=== PATIENT | male | born 1965 | race Caucasian/White ===

== ENCOUNTER 2018-04-16 11:30 | Inpatient (IN) ==
[2018-04-16] MEDS ORDERED: *HR* FentaNYL (PF) 100 MCG/2 ML VIAL IVP ONE ×2 (12:24→14:16)
[2018-04-16] MEDS ORDERED: Ondansetron 4 MG/2 ML VIAL IVP ONE (12:24)
[2018-04-16] MEDS ORDERED: Isovue-370 500 ML INFUS..BTL IV ONE (12:24)
[2018-04-16] MEDS ORDERED: 0.9 % Sodium Chloride 1,000 ML IVC ONE (12:24)
--- NOTE | 2018-04-16 12:29 | Emergency Department Note ---
Disposition Clinical Impression: Ulcerative rectosigmoiditis with abscess Disposition: Admitted As Inpatient Referrals: NONE,PCP [Primary Care Provider] - Forms: ED Satisfaction Letter GI Bleed HPI - General Chief complaint: ED GI Bleed Stated complaint: Rectal problems Time Seen by Provider: 04/16/18 11:53 Source: patient Limitations: no limitations Nursing Notes Reviewed: Yes Vital Signs Reviewed: Yes - History of Present Illness HPI Narrative: Luis Fernando is a 52 year old homeless male with a past medical history significant for 1 year of rectal pain and bleeding who now presents with worsening rectal pain, bleeding and new onset of abdominal pain. History comes primarily from the patient. Luis Fernando states that he was seen for his rectal pain and bleeding about one month ago at this facility. At the time he was CT scanned and found to have an intramural rectal abscess and discharged on pain medication, flagyl and oral steroids with instructions to follow up with outpatient GI for further evaluation. Due to socioeconomic constraints Luis Fernando was unable to obtain this follow up, and he states the medications did not improve or resolve his initial symptoms. He states this morning his pain became significantly worse and his rectal pain started to radiate to the lower abdominal region. He states that in the last month his bowel movements have been "mostly blood" and very painful. He denies F/C/NS, V/D, CP/SOB, AMS. He does admit to some nausea with his symptoms. He denies any other medical history or history of IVDU. Pt Subjective Complaint: blood on toilet paper, blood streaked stool, gross hematochezia Consistency: constant, Worsening Severity: severe Improves with: nothing Worsens with: bowel movement Context: history of GI bleed Associated symptoms: Reports: abdominal pain, nausea, malaise. Denies: fever, chills - Related Data Previous Rx's Medication Instructions Recorded Amoxicillin/Clavulanate [Augmentin] 875 mg PO BID #20 tablet 03/19/18 predniSONE [Prednisone] 50 mg PO DAILY #6 tablet 03/19/18 Allergies Allergy/AdvReac Type Severity Reaction Status Date / Time No Known Allergies Allergy Verified 01/31/17 13:09 Constitutional: Reports: weakness. Denies: fever, chills Cardiovascular: Denies: chest pain, palpitations, dyspnea on exertion Respiratory: Denies: cough, dyspnea, wheezes, sputum production Gastrointestinal: Reports: abdominal pain, nausea. Denies: vomiting, diarrhea, constipation Genitourinary: Denies: urgency, dysuria Musculoskeletal: Denies: back pain, neck pain Integumentary: Denies: rash, lesions Neurological: Denies: headache, weakness Psychiatric: Denies: anxiety, depression Past Medical History - Past Medical History Medical history: Reports: no medical history Psychiatric history: Reports: no psych history - Social History Smoking Status: Current every day smoker Smokeless Tobacco Status: No Alcohol use: Reports: none Drug use: Reports: none Physical Exam - General General appearance: alert, in no apparent distress - Head Head exam: atraumatic, normocephalic - Eye Eye exam: Present: normal appearance, PERRL, EOMI - ENT ENT exam: normal exam, normal oropharynx, mucous membranes moist - Neck Neck exam: Present: normal inspection, full ROM, trachea midline - Chest Chest inspection: Present: normal inspection, symmetric chest wall rise - Respiratory Respiratory exam: Present: normal lung sounds bilaterally. Absent: respiratory distress, accessory muscle use - Cardiovascular Cardiovascular exam: Present: regular rate, normal rhythm, normal heart sounds - Abdominal Exam Abdominal exam: Present: soft, tenderness, guarding. Absent: distention, rebound, rigidity Abdominal tenderness: Present: suprapubic - Rectal Exam Rectal exam: Present: normal inspection, other (increased rectal tone, stool is not grossly bloody. Hemoccult sent. ) - Back Exam Back exam: Present: normal inspection - Neurological Exam Neurological exam: Present: alert, oriented X3, CN II-XII intact - Psychiatric Psychiatric exam: Present: normal affect, normal mood - Skin Skin exam: Present: warm, dry, intact, normal color Course Course Narrative: Subjective interval change since last evaluation. Will reassess with repeat CT. Will treat symptoms with IVF, Zofran, Fentanyl. - Reevaluation(s) Reevaluation #1: Repeat CT shows interval enlargement of perirectal abscess despite previous treatment. Luis Fernando's situation was discussed with Dr. Salas of general surgery, who agreed to follow the patient in a consulting status He was also discussed with the admitting hospitalist, who agreed to admit Luis Fernando for inpatient care. This information was relayed to Blanka, who understands the plan of care and is amenable to the plan. Vital Signs Temperature 98.0 F 04/16/18 11:41 Pulse Rate 86 04/16/18 11:41 Respiratory Rate 14 04/16/18 11:41 Blood Pressure 157/85 04/16/18 11:41 O2 Sat by Pulse Oximetry 97 04/16/18 11:41 Temperature 98.0 F 04/16/18 11:55 Pulse Rate 74 04/16/18 12:59 Respiratory Rate 19 04/16/18 12:59 Blood Pressure 125/68 04/16/18 12:59 O2 Sat by Pulse Oximetry 98 04/16/18 12:59 Oxygen Delivery Oxygen Delivery Room Air GI Bleed - Lab Data Result diagrams: 04/16/18 12:29 04/16/18 12:29 Lab Results 04/16/18 04/16/18 04/16/18 Range/Units 12:29 12:29 12:32 WBC 14.4 H (4.3-11.1) K/mcL RBC 4.89 (4.19-5.50) M/mcL Hgb 14.1 (12.9-16.9) g/dL Hct 42.5 (37.5-50.1) % MCV 86.9 (83.0-100.0) fL MCH 28.8 (28.0-33.3) pg MCHC 33.2 (31.6-35.5) g/dL RDW 13.3 (11.5-14.5) % Plt Count 291 (140-400) K/mcL MPV 11.0 (9.4-12.4) fL Seg Neutrophils % 80.0 % Lymphocytes % 14.0 % Monocytes % 6.0 % Neutrophils # 11.5 H (1.6-8.9) K/mcL Lymphocytes # 2.0 (0.6-4.6) K/mcL Monocytes # 0.9 (0.0-1.3) K/mcL Platelet Estimate Normal (Normal) Sodium 142 (136-145) mEq/L Potassium 3.3 L (3.5-5.1) mEq/L Chloride 107 (98-107) mEq/L Carbon Dioxide 28 (23-29) mEq/L BUN 20 (6-20) mg/dL Creatinine 1.17 (0.70-1.30) mg/dL Est GFR ( Amer) > 60 (> 60) Est GFR (Non-Af Amer) > 60 (> 60) BUN/Creatinine Ratio 17 (6-26) Glucose 156 H (70-105) mg/dL Calculated Osmolality 300 (280-300) Calcium 9.2 (8.6-10.3) mg/dL Stool Occult Blood Positive A (Negative)
--- NOTE | 2018-04-16 12:29 | Emergency Department Note ---
Disposition Clinical Impression: Ulcerative rectosigmoiditis with abscess Disposition: Still a Patient Referrals: NONE,PCP [Primary Care Provider] - General Adult HPI - General Chief complaint: ED GI Bleed Stated complaint: Rectal problems Time Seen by Provider: 04/16/18 11:53 Nursing Notes Reviewed: Yes Vital Signs Reviewed: Yes - History of Present Illness HPI Narrative: ED ATTESTATION NOTE: I examined this patient and my medical decision-making was reviewed with the Resident Physician/OUTREACH ASSOCIATE/PA/Student. I have personally performed a face to face evaluation on this patient & I agree with the documented findings, disposition and treatment plan as described except to the extent set forth below. Patient was seen with transitional year resident Dr. Marshal Sepulveda please see copy of his note for details of this encounter Briefly: 52-year-old male was seen for similar symptoms last month had a perirectal abscess and him and flank inflammation at the terminal: Was placed on steroids and Flagyl. Patient says he currently has some welfare issues and was unable to follow up with GI has no primary care provider symptoms getting worse worsening pain or bloody stools of most daily for the past month with mucus now he has pain in the suprapubic and in an anterior abdominal area he has a voluntary guarding the lower quadrant but no rebound. No distention. Rectal tone is normal no fluctuance noted but painful no gross blood noted. Patient get screening labs IV fluids IV antiemetics analgesics a abdominal pelvic CT with IV contrast. Admission anticipated. Disposition pending. Pain Scale: 10 - Related Data Previous Rx's Medication Instructions Recorded Amoxicillin/Clavulanate [Augmentin] 875 mg PO BID #20 tablet 03/19/18 predniSONE [Prednisone] 50 mg PO DAILY #6 tablet 03/19/18 Allergies Allergy/AdvReac Type Severity Reaction Status Date / Time No Known Allergies Allergy Verified 01/31/17 13:09 Past Medical History - Past Medical History Medical history: Reports: no medical history Psychiatric history: Reports: no psych history - Social History Smoking Status: Current every day smoker Smokeless Tobacco Status: No Alcohol use: Reports: none Drug use: Reports: none Physical Exam - General General appearance: alert, in no apparent distress Course Vital Signs Temperature 98.0 F 04/16/18 11:41 Pulse Rate 86 04/16/18 11:41 Respiratory Rate 14 04/16/18 11:41 Blood Pressure 157/85 04/16/18 11:41 O2 Sat by Pulse Oximetry 97 04/16/18 11:41 Temperature 98.0 F 04/16/18 11:55 Pulse Rate 86 04/16/18 11:55 Respiratory Rate 14 04/16/18 11:55 Blood Pressure 157/85 04/16/18 11:55 O2 Sat by Pulse Oximetry 97 04/16/18 11:55 Oxygen Delivery Oxygen Delivery Room Air
[2018-04-16 13:09] LABS: Hematocrit 42.5 % (37.5-50.1); Hemoglobin 14.1 g/dL (12.9-16.9); Mean Corpuscular HGB Conc 33.2 g/dL (31.6-35.5); Mean Corpuscular Hemoglobin 28.8 pg (28.0-33.3); Mean Corpuscular Volume 86.9 fL (83.0-100.0); Platelet Count 291 K/mcL (140-400); Red Blood Count 4.89 M/mcL (4.19-5.50); Red Cell Distribution Width 13.3 % (11.5-14.5)
[2018-04-16 13:13] LABS: BUN/Creatinine Ratio 17 (6-26); Blood Urea Nitrogen 20 mg/dL (6-20); Calcium 9.2 mg/dL (8.6-10.3); Carbon Dioxide 28 mEq/L (23-29); Chloride 107 mEq/L (98-107); Glucose 156 mg/dL (70-105); Osmolality,Calculated 300 (280-300); Potassium 3.3 mEq/L (3.5-5.1); Sodium 142 mEq/L (136-145); eGFR For Non-African Americans > 60 (> 60)
[2018-04-16 13:53] LABS: Platelet Estimate Normal (Normal)
[2018-04-16 13:56] LABS: Monocytes # 0.9 K/mcL (0.0-1.3); Neutrophils # 11.5 K/mcL (1.6-8.9)
[2018-04-16] MEDS ORDERED: Ketorolac 15 MG/ML VIAL IVP ONE (14:16)
[2018-04-16] MEDS ORDERED: traMADol 50 MG TABLET PO PRN (15:08)
[2018-04-16] MEDS ORDERED: Ondansetron 4 MG/2 ML VIAL IVP PRN (15:08)
[2018-04-16] MEDS ORDERED: Acetaminophen 325 MG TABLET PO PRN (15:08)
[2018-04-16] MEDS ORDERED: OXYCODONE Oral CONC 10 MG/0.5 ML ORAL.SYG SL PRN ×2 (15:08)
[2018-04-16] MEDS ORDERED: Naloxone 0.4 MG/ML INJ IVP PRN (15:08)
--- NOTE | 2018-04-16 15:16 | Internal Med History&Physical ---
Date of Encounter: 04/16/18 Time of Encounter: 15:00 Internal Medicine - H&P: HPI Chief complaint: Rectal pain Admitted From: Emergency Dept Plans for Post Hospital Care: Home History of present illness: Mr. Moscoso is a 52 year old male with no apparent medical history presented to ED with rectal pain. Mr Moscoso was seen in ED a few weeks ago with rectal pain. He was placed on Flagyl and Prednisone. He does not feel it has helped. He continues to have significant pain and when he has a bowel movement it is "water and blood." He has now developed suprapubic and R side pain. No fever or chills noted. No CP or SOB. No prior history. No known rectal trauma per patient. In the ED he was given pain meds. CT showed perirectal abscess as well as 6mm obstructing R kidney stone at [facility]. He is uncomfortable with sitting and any movement. Surgery was consulted and may take him to OR today. He has been placed in observation for further care. Past Med Surg Social Fam HX - Past Medical History Source: patient Medical history: no medical history Additional medical history: Perirectal abscess few weeks ago. Psychiatric history: no psych history - Past Surgical History Additional surgical history: neck sx - Social History Smoking Status: Current every day smoker (Smokes about 1 ppd per 2 days.) Smokeless Tobacco Status: No Alcohol use: none (Said he stopped drinking when this occurred.) Drug use: none - Additional Family History Additional family history: Pt is adopted and does not know history. Internal Medicine - H&P: Meds No Known Home Drugs 04/16/18 [History] Allergy/AdvReac Type Severity Reaction Status Date / Time No Known Allergies Allergy Verified 04/16/18 15:15 All Systems PM: A 10-system review of systems was performed and is negative for pertinent findings except as documented above in the HPI. - Constitutional Constitutional: anorexia, fatigue, lethargy, weight loss - EENT Eyes: no diplopia, no pain Ears: no decreased hearing Nose, mouth and throat: dry mouth, no mouth pain, no sinus pain - Cardiovascular Cardiovascular ROS IM: no chest pain, no diaphoresis, no dyspnea, no dyspnea on exertion, no edema, no orthopnea, no paroxysmal nocturnal dyspnea - Respiratory Respiratory: no cough, no dyspnea, no dyspnea on exertion, no chest congestion - Gastrointestinal Gastrointestinal: abdominal pain, hematochezia Additional comments: Pain in rectum. - Genitourinary Genitourinary ROS male: no dysuria, no urinary frequency, no urinary urgency - Musculoskeletal Musculoskeletal ROS IM: back pain, no muscle weakness, no numbness - Integumentary Integumentary IM: no erythema, no rash - Neurological Neurological ROS: no confusion, no numbness, no weakness - Endocrine Endocrine IM: no excessive sweating - Hematologic/Lymphatic Hematologic/Lymphatic: no easy bleeding - Allergic/Immunologic Allergic/Immunologic: no itchy eyes - Constitutional Vitals: Temp Pulse Resp BP Pulse Ox 98.0 F 54 17 143/74 98 04/16/18 11:55 04/16/18 15:09 04/16/18 15:09 04/16/18 15:09 04/16/18 15:09 General appearance: Present: A&O X 3, answers questions appropriately Exam: See below - Head Head exam: Present: normocephalic - Eye Eye exam: Present: EOMI, conjuntiva pink - ENT ENT exam: Present: mucous membranes dry - Neck Neck exam general surgery: Present: normal inspection - Respiratory Respiratory exam: Present: CTAB. Absent: rales, rhonchi, wheezes - Cardiovascular Cardiovascular exam: Present: RRR. Absent: systolic murmur, tachycardia - GI/Abdominal GI/Abdominal exam: Present: normal bowel sounds, soft, tenderness (Tender suprapubic and R side.) - Rectal Additional comments: Done by emergency room. - Extremities Exam Extremities exam: Present: warm. Absent: tenderness - Neurological Exam Neurological exam: Present: alert, oriented X3, no focal deficits - Skin Skin exam: Present: dry, warm. Absent: rash Internal Med - H&P Results - Labs CBC & Chem 7: 04/16/18 12:29 04/16/18 12:29 Labs: Short CBC 04/16/18 Range/Units 12:29 WBC 14.4 H (4.3-11.1) K/mcL Hgb 14.1 (12.9-16.9) g/dL Hct 42.5 (37.5-50.1) % Plt Count 291 (140-400) K/mcL Neutrophils # 11.5 H (1.6-8.9) K/mcL BMP 04/16/18 12:29 Sodium 142 Potassium 3.3 L Chloride 107 Carbon Dioxide 28 BUN 20 Creatinine 1.17 Glucose 156 H Calcium 9.2 - Impressions ITS Impressions Abdomen/Pelvis CT 04/16/18 12:23 IMPRESSION: 1. Small 15 mm left perirectal abscess. 2. Moderately obstructing 6 mm distal right ureteral calculus. D/ / Renato Millan MD / Renato Millan MD Interpreting Provider: Renato Millan MD - Assessment and plan (1) Perirectal abscess Current Visit: Yes Status: Acute Assessment and plan: Pt with 16mm perirectal abscess on CT. Treated recently with Flagyl and Prednisone. Place in observation. IV Cipro and Flagyl. Surgery was contacted by ED for further management. (2) Hydronephrosis with obstructing calculus Current Visit: Yes Status: Acute Assessment and plan: Pt has 6mm stone in R [facility]. No prior hx of stone. Urology consult for further management. (3) Tobacco abuse Current Visit: Yes Status: Chronic Assessment and plan: Cessation counselling - Time Spent With Patient Total time spent is greater than 50% in coordination of care (as documented) at patient's floor/unit and/or counseling patient:
[2018-04-16 15:38] LABS: Basophils # 0.1 K/mcL (0.0-0.2); Basophils % 0.4 %; Eosinophils # 0.1 K/mcL (0.0-0.6); Eosinophils % 0.7 %; Hematocrit 38.7 % (37.5-50.1); Immature Granulocytes % 0.4 % (0-4); Lymphocytes # 2.7 K/mcL (0.6-4.6); Lymphocytes % 14.8 %; Mean Corpuscular HGB Conc 32.8 g/dL (31.6-35.5); Mean Corpuscular Hemoglobin 28.5 pg (28.0-33.3); Mean Corpuscular Volume 86.8 fL (83.0-100.0); Mean Platelet Volume 10.9 fL (9.4-12.4); Monocytes # 1.1 K/mcL (0.0-1.3); Monocytes % 6.1 %; Neutrophils # 14.2 K/mcL (1.6-8.9); Platelet Count 274 K/mcL (140-400); Red Blood Count 4.46 M/mcL (4.19-5.50); Red Cell Distribution Width 13.2 % (11.5-14.5); Segmented Neutrophils % 77.6 %
[2018-04-16 15:41] LABS: Hemoglobin 12.7 g/dL (12.9-16.9)
--- NOTE | 2018-04-16 16:27 | Urology - Consult Note ---
Date of Encounter: 04/16/18 Time of Encounter: 16:23 - Assessment and Plan (1) Hydronephrosis with obstructing calculus Current Visit: Yes Status: Acute Assessment and plan: 52-year-old man with a history of right flank pain rating to the right groin. I reviewed his CT scan. There is a subtle density in his distal right ureter. The description of a 6 mm stone does not seem quite accurate. He had a CT scan on 03/19/2018 which showed no evidence of stone. It is unlikely that he grew a 6 mm stone in less than a month. He denies any hematuria. I would recommend obtaining a urinalysis today. At this point, he does not require surgical intervention. If this is a stone, it seems small enough to pass. Urology will follow along. Appreciate general surgery recommendations. Urology CN:HPI Consult date: 04/16/18 Requesting physician: Sherman Wray History of present illness: 52 year old man presents with a history of rectal pain and right lower quadrant pain. He reports that the rectal pain and right lower quadrant pain became more severe yesterday into today. He describes the pain being sharp. The pain remains in the right lower quadrant. The pain has been intense. He denies any hematuria or difficulty voiding. He denies a history of kidney stones. He had a CT scan which showed concern for possible 6 mm distal right ureteral stone with some hydronephrosis. He had a previous CT scan on 03/19/2018 which did not show any evidence of right renal stone. He is adopted and denies any known family history. Past Med Surg Social Fam HX - Past Medical History Medical history: no medical history Additional medical history: Perirectal abscess few weeks ago. Psychiatric history: no psych history - Past Surgical History Additional surgical history: neck sx - Social History Smoking Status: Current every day smoker (Smokes about 1 ppd per 2 days.) Smokeless Tobacco Status: No Alcohol use: none (Said he stopped drinking when this occurred.) Drug use: none - Family History Mother Adopted: Yes Medications and Allergies No Known Home Drugs 04/16/18 [History] Allergy/AdvReac Type Severity Reaction Status Date / Time No Known Allergies Allergy Verified 04/16/18 15:15 Review of Systems - Constitutional no chills, no fever(s) - EENT Nose, mouth and throat: no dizziness - Cardiovascular no chest pain - Respiratory no dyspnea - Gastrointestinal no nausea, no vomiting - Genitourinary flank pain, no hematuria - Musculoskeletal no back pain - Integumentary no erythema, no rash - Neurological no weakness - Psychiatric no suicidal ideation - Hematologic/Lymphatic no easy bleeding - Allergic/Immunologic no wheezing Exam Initial Vital Signs Temp Pulse Resp BP Pulse Ox 98.0 F 86 14 157/85 97 04/16/18 11:41 04/16/18 11:41 04/16/18 11:41 04/16/18 11:41 04/16/18 11:41 - General physical appearance Present: well developed, well nourished, moderate distress - Eyes Absent: icteric - ENT Present: normal nares - Neck Present: trachea midline - Respiratory Present: normal respiratory effort - Cardiovascular Cardiovascular exam IM: RRR - Abdomen Abdomen: Present: soft - Integumentary Present: no rash - Neurologic Present: normal coordination - Musculoskeletal Present: other (Grossly normal) Urology Results - Labs 04/16/18 15:16 04/16/18 12:29 Abnormal lab results WBC 18.3 K/mcL (4.3-11.1) H 04/16/18 15:16 Hgb 12.7 g/dL (12.9-16.9) L 04/16/18 15:16 Neutrophils # 14.2 K/mcL (1.6-8.9) H 04/16/18 15:16 Potassium 3.3 mEq/L (3.5-5.1) L 04/16/18 12:29 Glucose 156 mg/dL (70-105) H 04/16/18 12:29 Stool Occult Blood Positive (Negative) A 04/16/18 12:32 Diabetes panel 04/16/18 Range/Units 12:29 Sodium 142 (136-145) mEq/L Potassium 3.3 L (3.5-5.1) mEq/L Chloride 107 (98-107) mEq/L Carbon Dioxide 28 (23-29) mEq/L BUN 20 (6-20) mg/dL Creatinine 1.17 (0.70-1.30) mg/dL Glucose 156 H (70-105) mg/dL Calcium 9.2 (8.6-10.3) mg/dL Calcium panel 04/16/18 Range/Units 12:29 Calcium 9.2 (8.6-10.3) mg/dL Pituitary panel 04/16/18 Range/Units 12:29 Sodium 142 (136-145) mEq/L Potassium 3.3 L (3.5-5.1) mEq/L Chloride 107 (98-107) mEq/L Carbon Dioxide 28 (23-29) mEq/L BUN 20 (6-20) mg/dL Creatinine 1.17 (0.70-1.30) mg/dL Glucose 156 H (70-105) mg/dL Calcium 9.2 (8.6-10.3) mg/dL Adrenal panel 04/16/18 Range/Units 12:29 Sodium 142 (136-145) mEq/L Potassium 3.3 L (3.5-5.1) mEq/L Chloride 107 (98-107) mEq/L Carbon Dioxide 28 (23-29) mEq/L BUN 20 (6-20) mg/dL Creatinine 1.17 (0.70-1.30) mg/dL Glucose 156 H (70-105) mg/dL Calcium 9.2 (8.6-10.3) mg/dL All other labs normal. - Imaging CT scan - abdomen: report reviewed, image reviewed CT scan - pelvis: report reviewed, image reviewed Consult Discharge Plan - Plan Referrals: NONE,PCP [Primary Care Provider] -
[2018-04-16] MEDS: MetroNIDAZOLE 500 MG/100 ML 500 MG/100 ML BAG IVPB SCH ×2 (17:29→23:37)
[2018-04-16] MEDS: Ringers Solution, Lactated 1,000 ML IVC SCH (17:29)
[2018-04-16] MEDS ORDERED: Potassium Chloride 20 MEQ, Lidocaine 1% 2 ML in D5% in Water 250 ML IVPB ONE (17:52)
[2018-04-16] MEDS: *HR* OxyCODONE Immed Rel 5 MG TABLET PO PRN (20:06)
[2018-04-16 20:47] LABS: Bilirubin,Urine Negative (Negative); Blood,Urine Moderate (Negative); Clarity,Urine Clear (Clear); Color,Urine Yellow (Yellow); Glucose,Urine (UA) Normal (Normal); Ketones,Urine Negative (Negative); Leukocyte Esterase,Urine Trace (Negative); Nitrite,Urine Negative (Negative); PH,Urine 6.5 pH Units (5.0-8.0); Protein,Urine 30 mg/dL (Neg-Trace); Urobilinogen,Urine Normal (Normal)
[2018-04-16 20:49] LABS: Bacteria,Urine None Seen per hpf (None-Few); Hyaline Casts,Urine None Seen per lpf (None-Few); RBC,Urine 30-50 per hpf (0-3); Squamous Epithelial Cell,Urine Many per lpf (None-Few)
[2018-04-16 20:57] LABS: Amphetamine Screen,Urine Negative ng/mL (Cutoff=1000); Barbiturate Screen,Urine Negative ng/mL (Cutoff=200); Benzodiazepines Screen,Urine Negative ng/mL (Cutoff=200); Cannabinoid Screen,Urine Positive ng/mL (Cutoff = 50); Cocaine Screen,Urine Negative ng/mL (Cutoff= 300); Opiate Screen,Urine Negative ng/mL (Cutoff=300); Phencyclidine Screen,Urine Negative ng/mL (Cutoff=25)
[2018-04-16 23:05] LABS: Basophils # 0.1 K/mcL (0.0-0.2); Basophils % 0.5 %; Eosinophils # 0.2 K/mcL (0.0-0.6); Eosinophils % 1.7 %; Hematocrit 35.5 % (37.5-50.1); Hemoglobin 11.7 g/dL (12.9-16.9); Immature Granulocytes % 0.3 % (0-4); Lymphocytes # 2.2 K/mcL (0.6-4.6); Lymphocytes % 17.6 %; Mean Corpuscular Hemoglobin 28.5 pg (28.0-33.3); Mean Corpuscular Volume 86.6 fL (83.0-100.0); Mean Platelet Volume 10.6 fL (9.4-12.4); Monocytes # 1.3 K/mcL (0.0-1.3); Monocytes % 10.7 %; Neutrophils # 8.5 K/mcL (1.6-8.9); Platelet Count 221 K/mcL (140-400); Red Cell Distribution Width 13.1 % (11.5-14.5); Segmented Neutrophils % 69.2 %
[2018-04-17] MEDS: *HR* OxyCODONE Immed Rel 5 MG TABLET PO PRN ×4 (02:27→20:29)
[2018-04-17] MEDS: Ringers Solution, Lactated 1,000 ML IVC SCH ×3 (04:53→19:19)
[2018-04-17 05:47] LABS: BUN/Creatinine Ratio 13 (6-26); Blood Urea Nitrogen 18 mg/dL (6-20); Calcium 8.5 mg/dL (8.6-10.3); Carbon Dioxide 25 mEq/L (23-29); Chloride 111 mEq/L (98-107); Glucose 99 mg/dL (70-105); Magnesium 1.7 mg/dL (1.6-2.6); Osmolality,Calculated 288 (280-300); Potassium 3.6 mEq/L (3.5-5.1); Sodium 138 mEq/L (136-145); eGFR For Non-African Americans 55 (> 60)
[2018-04-17] MEDS: MetroNIDAZOLE 500 MG/100 ML 500 MG/100 ML BAG IVPB SCH ×2 (08:00→18:06)
--- NOTE | 2018-04-17 09:54 | Urology Progress Note ---
Addendum entered and electronically signed by Cachorro Maza MD 04/17/18 12:21: The patient was seen and examined with the physician's intellectual property legal assistant. I agree with the assessment and plan. He feels better today. His creatinine did rise slightly. We discussed the CT findings again. If this is a small stone, he would likely be on the passer and may not even see it come out. We will follow for now. Consider repeat CT imaging in 3-4 weeks to confirm resolution of the hydronephrosis. Urology will follow along. Original Note: Date of Encounter: 04/17/18 Time of Encounter: 09:30 - Assessment and Plan (1) Hydronephrosis with obstructing calculus Current Visit: Yes Status: Acute Assessment and plan: Patient is a 52-year-old male who presents the history of right hydronephrosis. There is question as to if a calculus is truly present based off CT images. Patient denies known passage. Renal function has slightly worsened since yesterday from 1.17-1.36. Will discuss findings with Dr. Maza. Progress Note Subjective: no new complaints Narrative: Patient seen and examined sitting upright in bed in no apparent distress. Patient reports he is voiding without difficulty. Patient denies gross hematuria, flank pain, fever, chills. Objective Initial Vital Signs Temp Pulse Resp BP Pulse Ox 98.0 F 86 14 157/85 97 04/16/18 11:41 04/16/18 11:41 04/16/18 11:41 04/16/18 11:41 04/16/18 11:41 - General physical appearance Present: well developed, no distress - Respiratory Present: normal expansion, normal respiratory effort - Abdomen Present: soft, non tender - Integumentary Present: no rash, no abnormal pigmentation - Musculoskeletal Present: normal posture - Psychiatric Present: oriented to time, oriented to person, oriented to place, speech is normal, memory intact - Labs 04/16/18 22:44 04/17/18 05:05 Diabetes panel 04/16/18 04/17/18 Range/Units 12:29 05:05 Sodium 142 138 (136-145) mEq/L Potassium 3.3 L 3.6 (3.5-5.1) mEq/L Chloride 107 111 H (98-107) mEq/L Carbon Dioxide 28 25 (23-29) mEq/L BUN 20 18 (6-20) mg/dL Creatinine 1.17 1.36 H (0.70-1.30) mg/dL Glucose 156 H 99 (70-105) mg/dL Calcium 9.2 8.5 L (8.6-10.3) mg/dL Calcium panel 04/16/18 04/17/18 Range/Units 12:29 05:05 Calcium 9.2 8.5 L (8.6-10.3) mg/dL Pituitary panel 04/16/18 04/17/18 Range/Units 12:29 05:05 Sodium 142 138 (136-145) mEq/L Potassium 3.3 L 3.6 (3.5-5.1) mEq/L Chloride 107 111 H (98-107) mEq/L Carbon Dioxide 28 25 (23-29) mEq/L BUN 20 18 (6-20) mg/dL Creatinine 1.17 1.36 H (0.70-1.30) mg/dL Glucose 156 H 99 (70-105) mg/dL Calcium 9.2 8.5 L (8.6-10.3) mg/dL Adrenal panel 04/16/18 04/17/18 Range/Units 12:29 05:05 Sodium 142 138 (136-145) mEq/L Potassium 3.3 L 3.6 (3.5-5.1) mEq/L Chloride 107 111 H (98-107) mEq/L Carbon Dioxide 28 25 (23-29) mEq/L BUN 20 18 (6-20) mg/dL Creatinine 1.17 1.36 H (0.70-1.30) mg/dL Glucose 156 H 99 (70-105) mg/dL Calcium 9.2 8.5 L (8.6-10.3) mg/dL Consult Discharge Plan - Plan Referrals: NONE,PCP [Primary Care Provider] -
--- NOTE | 2018-04-17 10:31 | General Surgery Consult Note ---
Date of Encounter: 04/16/18 Time of Encounter: 17:00 Assessment and Plan (1) Ulcerative rectosigmoiditis with abscess Current Visit: Yes Status: Acute 52M with inflammation of distal rectum with concern for associated abscess. patient is not peritoneal, still has an appetite, non septic. NPO IVF IV abx: broad spectrum trend WBC, temp appreciate urology recs will examine serially; if no improvement, then will plan for REUA discussed with patient in detail who was agreeable. History of Present Illness Consult date: 04/16/18 Reason for consult: abdominal pain History of present illness: 52M homeless who presents with a one year history of worsening rectal pain. The patient states the pain is sharp and 'pulling' in nature and is now beginning to experience some associated abdominal pain. No reports of any alleviating factors, but it is worse when he sits straight up, putting direct pressure on his buttocks. He was prescribed PO antibiotics, but had not resolution of symptoms. No reports of fevers, chills, nausea, vomiting, purulent nor bloody drainage. General surgery was consulted for management recommendations. of note, he did have a CT scan, which was reviewed and interpreted by me, which identified thickening of the distal rectum and a small 15mm abscess (3mm larger from prior imaging). Past Med Surg Social Fam HX - Past Medical History Medical history: no medical history Additional medical history: Perirectal abscess few weeks ago. Psychiatric history: no psych history - Past Surgical History Additional surgical history: neck sx - Social History Smoking Status: Current every day smoker Packs per day: 1 Smokeless Tobacco Status: No Alcohol use: none Drug use: none - Family History Mother Adopted: Yes Medications and Allergies No Known Home Drugs 04/16/18 [History] Allergy/AdvReac Type Severity Reaction Status Date / Time No Known Allergies Allergy Verified 04/16/18 15:15 Review of Systems All systems PM: 12 point ROS negative besides HPI findings General Surgery Exam Initial Vital Signs Temp Pulse Resp BP Pulse Ox 98.0 F 86 14 157/85 97 04/16/18 11:41 04/16/18 11:41 04/16/18 11:41 04/16/18 11:41 04/16/18 11:41 - General physical appearance no distress - Eyes normal ocular movement - ENT normocephalic - Neck no lymphadectomy - Respiratory normal expansion, normal respiratory effort - Cardiovascular Cardiovascular exam: Present: RRR - Abdomen Abdomen general surgery: Present: soft, tender Abdominal Tenderness: Present: RLQ (non peritoneal) - Integumentary Integumentary general surgery: Present: warm and dry - Neurologic Present: CN 2-12 grossly intact - Musculoskeletal Present: normal posture - Psychiatric Psychiatric general surgery: Present: A&Ox3 Exam Initial Vital Signs Temp Pulse Resp BP Pulse Ox 98.0 F 86 14 157/85 97 04/16/18 11:41 04/16/18 11:41 04/16/18 11:41 04/16/18 11:41 04/16/18 11:41 Results - Labs 04/16/18 22:44 04/17/18 05:05 Abnormal lab results WBC 12.3 K/mcL (4.3-11.1) H 04/16/18 22:44 RBC 4.10 M/mcL (4.19-5.50) L 04/16/18 22:44 Hgb 11.7 g/dL (12.9-16.9) L 04/16/18 22:44 Hct 35.5 % (37.5-50.1) L 04/16/18 22:44 Chloride 111 mEq/L (98-107) H 04/17/18 05:05 Creatinine 1.36 mg/dL (0.70-1.30) H 04/17/18 05:05 Est GFR (Non-Af Amer) 55 (> 60) L 04/17/18 05:05 Calcium 8.5 mg/dL (8.6-10.3) L 04/17/18 05:05 Ur Specific [facility] 1.030 (1.010-1.025) H 04/16/18 20:27 Urine Protein 30 mg/dL (Neg-Trace) H 04/16/18 20:27 Urine Blood Moderate (Negative) H 04/16/18 20:27 Ur Leukocyte Esterase Trace (Negative) H 04/16/18 20:27 Urine Microscopic RBC 30-50 per hpf (0-3) H 04/16/18 20:27 Urine Microscopic WBC 5-15 per hpf (0-3) H 04/16/18 20:27 Ur Squamous Epith Cells Many per lpf (None-Few) H 04/16/18 20:27 Ur Culture Indicated? NO. (NO) A 04/16/18 20:27 Stool Occult Blood Positive (Negative) A 04/16/18 12:32 U Marijuana (THC) Screen Positive ng/mL (Cutoff = 50) H 04/16/18 20:27 Diabetes panel 04/16/18 04/17/18 Range/Units 12:29 05:05 Sodium 142 138 (136-145) mEq/L Potassium 3.3 L 3.6 (3.5-5.1) mEq/L Chloride 107 111 H (98-107) mEq/L Carbon Dioxide 28 25 (23-29) mEq/L BUN 20 18 (6-20) mg/dL Creatinine 1.17 1.36 H (0.70-1.30) mg/dL Glucose 156 H 99 (70-105) mg/dL Calcium 9.2 8.5 L (8.6-10.3) mg/dL Calcium panel 04/16/18 04/17/18 Range/Units 12:29 05:05 Calcium 9.2 8.5 L (8.6-10.3) mg/dL Pituitary panel 04/16/18 04/17/18 Range/Units 12:29 05:05 Sodium 142 138 (136-145) mEq/L Potassium 3.3 L 3.6 (3.5-5.1) mEq/L Chloride 107 111 H (98-107) mEq/L Carbon Dioxide 28 25 (23-29) mEq/L BUN 20 18 (6-20) mg/dL Creatinine 1.17 1.36 H (0.70-1.30) mg/dL Glucose 156 H 99 (70-105) mg/dL Calcium 9.2 8.5 L (8.6-10.3) mg/dL Adrenal panel 04/16/18 04/17/18 Range/Units 12:29 05:05 Sodium 142 138 (136-145) mEq/L Potassium 3.3 L 3.6 (3.5-5.1) mEq/L Chloride 107 111 H (98-107) mEq/L Carbon Dioxide 28 25 (23-29) mEq/L BUN 20 18 (6-20) mg/dL Creatinine 1.17 1.36 H (0.70-1.30) mg/dL Glucose 156 H 99 (70-105) mg/dL Calcium 9.2 8.5 L (8.6-10.3) mg/dL All other labs normal. - Imaging CT scan - abdomen: report reviewed, image reviewed CT scan - pelvis: report reviewed, image reviewed Consult Discharge Plan - Plan Referrals: NONE,PCP [Primary Care Provider] -
--- NOTE | 2018-04-17 13:26 | Internal Med Progress Note ---
<Lou Sibley - Last Filed: 04/17/18 13:48> Hospitalist Progress Note - Encounter Date of Encounter: 04/17/18 Time of Encounter: 09:30 - Subjective Interval History: Patient seen and examined at bedside. He is alert and oriented times 3. He stated improvement of right-sided back pain and groin pain. Also improvement in urinary stream, he does not have to she strain anymore. He still reports rectal pain. He denies fever, chills, nausea, vomiting, hematuria, dysuria. - Exam Vitals: Temp Pulse Resp BP Pulse Ox 98.5 F 62 17 114/59 94 04/17/18 10:57 04/17/18 10:57 04/17/18 10:57 04/17/18 10:57 04/17/18 10:57 Exam: Gen.: Vitals noted. No acute distress. AAOx3 HEENT: oropharynx clear, Normocephalic, atraumatic Neck: Supple. No adenopathy. Cardiac: RRR, no murmur, +S1/S2 Pulmonary: CTA bilaterally, no wheezes, rales or rhonchi, equal chest expansion Abdomen: soft, right lower quadrant groin tender, Bowel sounds noted, no guarding Back: right CVA tender Extremities: no BLE edema, nontender calf, no cyanosis or clubbing Neuro: A&Ox3, moves all extremities, no focal deficits Psych: Appropriate mood and behavior - Assessment and Plan (1) Perirectal abscess Current Visit: Yes Status: Acute Assessment and Plan: Perirectal abscess on imaging. Unresolved abscess since given steroids in PO antibiotics without incision and drainage when previously evaluated in ED a week ago. Abdomen/pelvis CT demonstrating small 15 mm left perirectal abscess and moderately obstructing 6 mm distal right ureteral calculus. Afebrile, and non-septic, hemodynamically stable stool occult positive in setting of rectal abscess Plan: -general surgery has evaluated the patient and recommends to continue antibiotics and will serially examine the patient to determine need for further intervention -will continue IV ciprofloxacin and Flagyl day 2 (2) Hydronephrosis with obstructing calculus Current Visit: Yes Status: Acute Assessment and Plan: Imaging demonstrating kidney stone. No prior history of kidney stones. Abdomen/pelvis CT demonstrating small 15 mm left perirectal abscess and moderately obstructing 6 mm distal right ureteral calculus. Urinalysis: moderate blood, + leukocyte esterase, RBC 30-50, WBC 5-15 Plan: -Patient has improved urinary stream and right-sided groin pain however he does still have right CVA tenderness on palpation. He does not know if he has passed the stone. -urology following in is not believe the patient's needs intervention at this time, however recommends repeat CT imaging in 3-4 weeks to confirm resolution of hydronephrosis. -Flomax and 1 L IVF ordered -strain cap ordered for urination to filter the stone -will continue to monitor (3) Tobacco abuse Current Visit: Yes Status: Chronic Assessment and Plan: Counseled on cessation (4) Acute kidney injury Current Visit: Yes Status: Acute Assessment and Plan: Acute kidney injury, etiology post renal in setting of right-sided kidney stone causing hydronephrosis Abdomen/pelvis CT demonstrating moderately obstructing 6 mm distal right ureteral calculus. Creatinine 1.36 (1.17 at admission) I&O: 1100/350 Plan: -will continue to monitor serum creatinine as this will likely resolved once kidney stone has passed. -Continue to monitor urine output -continue IV fluids and Flomax to aid in passing of kidney stone - Time Spent with Patient Total time spent is greater than 50% in coordination of care (as documented) at patient's floor/unit and/or counseling patient: Internal Medicine: Result - Labs CBC & Chem 7: 04/16/18 22:44 04/17/18 05:05 Labs: Short CBC 04/16/18 04/16/18 04/16/18 Range/Units 12:29 15:16 22:44 WBC 18.3 H 12.3 H (4.3-11.1) K/mcL Hgb 12.7 L 11.7 L (12.9-16.9) g/dL Hct 38.7 35.5 L (37.5-50.1) % Plt Count 274 221 (140-400) K/mcL Neutrophils # 11.5 H 14.2 H 8.5 (1.6-8.9) K/mcL BMP 04/17/18 05:05 Sodium 138 Potassium 3.6 Chloride 111 H Carbon Dioxide 25 BUN 18 Creatinine 1.36 H Glucose 99 Calcium 8.5 L Urine 04/16/18 Range/Units 20:27 Urine Color Yellow (Yellow) Urine Clarity Clear (Clear) Urine pH 6.5 (5.0-8.0) pH Units Ur Specific [facility] 1.030 H (1.010-1.025) Urine Protein 30 H (Neg-Trace) mg/dL Urine Glucose (UA) Normal (Normal) mg/dL - Impressions Impressions Abdomen/Pelvis CT 04/16/18 12:23 IMPRESSION: 1. Small 15 mm left perirectal abscess. 2. Moderately obstructing 6 mm distal right ureteral calculus. D/ / Renato Millan MD / Renato Millan MD Interpreting Provider: Renato Millan MD Consult Discharge Plan - Plan Referrals: NONE,PCP [Primary Care Provider] - <Sherman Wray - Last Filed: 04/17/18 16:20> Hospitalist Progress Note - Encounter Date of Encounter: 04/17/18 - Exam Vitals: Temp Pulse Resp BP Pulse Ox 99.2 F 69 16 116/65 93 04/17/18 15:42 04/17/18 15:42 04/17/18 15:42 04/17/18 15:42 04/17/18 15:42 - Assessment and Plan (1) Perirectal abscess Current Visit: Yes Status: Acute (2) Hydronephrosis with obstructing calculus Current Visit: Yes Status: Acute (3) Tobacco abuse Current Visit: Yes Status: Chronic (4) Acute kidney injury Current Visit: Yes Status: Acute - Time Spent with Patient Total time spent is greater than 50% in coordination of care (as documented) at patient's floor/unit and/or counseling patient: Internal Medicine: Result - Labs CBC & Chem 7: 04/16/18 22:44 04/17/18 05:05 Labs: Short CBC 04/16/18 Range/Units 22:44 WBC 12.3 H (4.3-11.1) K/mcL Hgb 11.7 L (12.9-16.9) g/dL Hct 35.5 L (37.5-50.1) % Plt Count 221 (140-400) K/mcL Neutrophils # 8.5 (1.6-8.9) K/mcL BMP 04/17/18 05:05 Sodium 138 Potassium 3.6 Chloride 111 H Carbon Dioxide 25 BUN 18 Creatinine 1.36 H Glucose 99 Calcium 8.5 L Urine 04/16/18 Range/Units 20:27 Urine Color Yellow (Yellow) Urine Clarity Clear (Clear) Urine pH 6.5 (5.0-8.0) pH Units Ur Specific [place] 1.030 H (1.010-1.025) Urine Protein 30 H (Neg-Trace) mg/dL Urine Glucose (UA) Normal (Normal) mg/dL - Attending Attestation I examined this patient and my medical decision-making was reviewed with the Resident Physician on 04/17/18. I agree with the documented findings, disposition and treatment plan as described except to the extent set forth below. Mr Moscoso is currently admitted for perirectal abscess and kidney stone. She remains moderate to high risk due to potential for worsening clinical status. Mr Moscoso is feeling somewhat better. No fever or chills. "Tastes" abx. No chest pain or dyspnea. Exam alert Comfortable Mucus membranes dry Heart reg No wheeze abd soft - still with some tenderness and flank pain No edema I/P 1. Perirectal abscess - on IV abx. Possible surgery tomorrow. 2. Kidney stone - flomax added. Further diagnoses and plan as above.
[2018-04-18] MEDS: MetroNIDAZOLE 500 MG/100 ML 500 MG/100 ML BAG IVPB SCH ×4 (00:11→23:20)
[2018-04-18] MEDS: *HR* OxyCODONE Immed Rel 5 MG TABLET PO PRN ×4 (03:20→23:20)
[2018-04-18 04:47] LABS: Basophils # 0.1 K/mcL (0.0-0.2); Basophils % 0.3 %; Eosinophils # 0.1 K/mcL (0.0-0.6); Eosinophils % 0.4 %; Hematocrit 33.7 % (37.5-50.1); Hemoglobin 11.6 g/dL (12.9-16.9); Immature Granulocytes % 0.5 % (0-4); Lymphocytes # 1.7 K/mcL (0.6-4.6); Lymphocytes % 11.7 %; Mean Corpuscular HGB Conc 34.4 g/dL (31.6-35.5); Mean Corpuscular Hemoglobin 28.9 pg (28.0-33.3); Monocytes # 1.8 K/mcL (0.0-1.3); Monocytes % 12.3 %; Neutrophils # 10.9 K/mcL (1.6-8.9); Platelet Count 221 K/mcL (140-400); Red Blood Count 4.01 M/mcL (4.19-5.50); Segmented Neutrophils % 74.8 %
[2018-04-18] MEDS: Ringers Solution, Lactated 1,000 ML IVC SCH ×3 (04:48→21:00)
[2018-04-18 05:03] LABS: BUN/Creatinine Ratio 10 (6-26); Blood Urea Nitrogen 14 mg/dL (6-20); Calcium 8.3 mg/dL (8.6-10.3); Carbon Dioxide 24 mEq/L (23-29); Chloride 105 mEq/L (98-107); Glucose 108 mg/dL (70-105); Osmolality,Calculated 281 (280-300); Potassium 3.4 mEq/L (3.5-5.1); Sodium 135 mEq/L (136-145); eGFR For Non-African Americans 54 (> 60)
--- NOTE | 2018-04-18 08:37 | General Surgery Progress Note ---
Date of Encounter: 04/18/18 Time of Encounter: 08:35 - Assessment and Plan (1) Ulcerative rectosigmoiditis with abscess Current Visit: Yes Status: Acute 52M with inflammation of distal rectum with concern for possible 15mm abscess (inc 3mm in size); currently afebrile, but slight increase in WBC; reports decreased pain, abd soft and non tender; reported bloody stools; diet: okay for diet as tolerated pain: per primary team cont IV abx regimen if WBC remains elevated, then recommend repeat CT with PO and IV contrast no surgery at this point Subjective Patient reports: no new complaints, feels better, still having pain, pain is less, flatus, other (recorded as having dark stool, patient reports no bowel m ovement) Objective Vital Signs - Last 8 Hours Temp Pulse Resp BP Pulse Ox 04/18/18 07:07 99.0 F 86 16 124/67 92 04/18/18 03:06 98.1 F 86 17 104/58 93 Intake and Output 04/17/18 04/18/18 04/18/18 23:59 07:59 15:59 Intake Total 3404 / 3404 300 / 300 Output Total 850 / 850 350 / 350 Balance 2554 / 2554 -50 / -50 Intake: IV Fluids 3404 / 3404 300 / 300 Lactated Ringers 1,000 ML @ 125 2000 / 2000 mls/hr IVC .Q8H [facility] Rx#: [id number] Cipro Premix 400 MG/200 ML 400 200 / 200 200 / 200 mg In 200 ml @ 200 mls/hr IVPB Q12HR [facility] Rx#:[id number] Magnesium Sulfate 2 GM In 0.9 % 104 / 104 Sodium Chloride 100 ML @ 104 mls/hr IVPB ONCE ONE Rx#: [id number] Flagyl Premix 500 MG/100 ML 500 100 / 100 100 / 100 mg In 100 ml @ 100 mls/hr IVPB Q8HR [facility] Rx#:[id number] Output: Urine 850 / 850 350 / 350 - General physical appearance no distress - Respiratory normal expansion, normal respiratory effort - Cardiovascular Cardiovascular exam: Present: RRR - Abdomen Abdomen: Present: soft, non tender - Neurologic CN 2-12 grossly intact - Psychiatric oriented to time, oriented to person, oriented to place - Labs 04/18/18 04:07 04/18/18 04:07 Diabetes panel 04/18/18 Range/Units 04:07 Sodium 135 L (136-145) mEq/L Potassium 3.4 L (3.5-5.1) mEq/L Chloride 105 (98-107) mEq/L Carbon Dioxide 24 (23-29) mEq/L BUN 14 (6-20) mg/dL Creatinine 1.39 H (0.70-1.30) mg/dL Glucose 108 H (70-105) mg/dL Calcium 8.3 L (8.6-10.3) mg/dL Calcium panel 04/18/18 Range/Units 04:07 Calcium 8.3 L (8.6-10.3) mg/dL Pituitary panel 04/18/18 Range/Units 04:07 Sodium 135 L (136-145) mEq/L Potassium 3.4 L (3.5-5.1) mEq/L Chloride 105 (98-107) mEq/L Carbon Dioxide 24 (23-29) mEq/L BUN 14 (6-20) mg/dL Creatinine 1.39 H (0.70-1.30) mg/dL Glucose 108 H (70-105) mg/dL Calcium 8.3 L (8.6-10.3) mg/dL Adrenal panel 04/18/18 Range/Units 04:07 Sodium 135 L (136-145) mEq/L Potassium 3.4 L (3.5-5.1) mEq/L Chloride 105 (98-107) mEq/L Carbon Dioxide 24 (23-29) mEq/L BUN 14 (6-20) mg/dL Creatinine 1.39 H (0.70-1.30) mg/dL Glucose 108 H (70-105) mg/dL Calcium 8.3 L (8.6-10.3) mg/dL Consult Discharge Plan - Plan Referrals: NONE,PCP [Primary Care Provider] -
--- NOTE | 2018-04-18 08:50 | Urology Progress Note ---
<Sarah Edmond N - Last Filed: 04/18/18 08:47> Date of Encounter: 04/18/18 Time of Encounter: 08:30 - Assessment and Plan (1) Hydronephrosis with obstructing calculus Current Visit: Yes Status: Acute Assessment and plan: Patient is a 52-year-old male who presents the history of hydronephrosis and possible obstructing calculus. Renal function appears to be stabilized. We will continue to follow renal function, and if there is an acute change, we will proceed with a CT of the pelvis. Progress Note Subjective: no new complaints Narrative: Patient seen and examined sitting upright in bed in apparent distress. Patient states he is voiding without difficulty. Patient complains of some perirectal pain. Patient denies flank pain, fever, chills, gross hematuria. Objective Initial Vital Signs Temp Pulse Resp BP Pulse Ox 98.0 F 86 14 157/85 97 04/16/18 11:41 04/16/18 11:41 04/16/18 11:41 04/16/18 11:41 04/16/18 11:41 - General physical appearance Present: well developed, no distress, no pain - Respiratory Present: normal expansion, normal respiratory effort - Abdomen Present: soft, non tender - Integumentary Present: no rash, no growths - Musculoskeletal Present: normal posture - Psychiatric Present: oriented to time, oriented to person, oriented to place, speech is normal, memory intact - Labs 04/18/18 04:07 04/18/18 04:07 Diabetes panel 04/18/18 Range/Units 04:07 Sodium 135 L (136-145) mEq/L Potassium 3.4 L (3.5-5.1) mEq/L Chloride 105 (98-107) mEq/L Carbon Dioxide 24 (23-29) mEq/L BUN 14 (6-20) mg/dL Creatinine 1.39 H (0.70-1.30) mg/dL Glucose 108 H (70-105) mg/dL Calcium 8.3 L (8.6-10.3) mg/dL Calcium panel 04/18/18 Range/Units 04:07 Calcium 8.3 L (8.6-10.3) mg/dL Pituitary panel 04/18/18 Range/Units 04:07 Sodium 135 L (136-145) mEq/L Potassium 3.4 L (3.5-5.1) mEq/L Chloride 105 (98-107) mEq/L Carbon Dioxide 24 (23-29) mEq/L BUN 14 (6-20) mg/dL Creatinine 1.39 H (0.70-1.30) mg/dL Glucose 108 H (70-105) mg/dL Calcium 8.3 L (8.6-10.3) mg/dL Adrenal panel 04/18/18 Range/Units 04:07 Sodium 135 L (136-145) mEq/L Potassium 3.4 L (3.5-5.1) mEq/L Chloride 105 (98-107) mEq/L Carbon Dioxide 24 (23-29) mEq/L BUN 14 (6-20) mg/dL Creatinine 1.39 H (0.70-1.30) mg/dL Glucose 108 H (70-105) mg/dL Calcium 8.3 L (8.6-10.3) mg/dL Consult Discharge Plan - Plan Referrals: NONE,PCP [Primary Care Provider] - <Cliff Villareal - Last Filed: 04/18/18 13:11> Date of Encounter: 04/18/18 - Assessment and Plan (1) Hydronephrosis with obstructing calculus Current Visit: Yes Status: Acute Assessment and plan: Patient was seen and evaluated independently this morning. We will plan on [facility] at this time. Patient is completely a symptomatic. Serum creatinine is stable. If patient does not have improvement of serum creatinine tomorrow we will obtain CT pelvis. Objective Initial Vital Signs Temp Pulse Resp BP Pulse Ox 98.0 F 86 14 157/85 97 04/16/18 11:41 04/16/18 11:41 04/16/18 11:41 04/16/18 11:41 04/16/18 11:41 - Labs 04/18/18 04:07 04/18/18 04:07 Diabetes panel 04/18/18 Range/Units 04:07 Sodium 135 L (136-145) mEq/L Potassium 3.4 L (3.5-5.1) mEq/L Chloride 105 (98-107) mEq/L Carbon Dioxide 24 (23-29) mEq/L BUN 14 (6-20) mg/dL Creatinine 1.39 H (0.70-1.30) mg/dL Glucose 108 H (70-105) mg/dL Calcium 8.3 L (8.6-10.3) mg/dL Calcium panel 04/18/18 Range/Units 04:07 Calcium 8.3 L (8.6-10.3) mg/dL Pituitary panel 04/18/18 Range/Units 04:07 Sodium 135 L (136-145) mEq/L Potassium 3.4 L (3.5-5.1) mEq/L Chloride 105 (98-107) mEq/L Carbon Dioxide 24 (23-29) mEq/L BUN 14 (6-20) mg/dL Creatinine 1.39 H (0.70-1.30) mg/dL Glucose 108 H (70-105) mg/dL Calcium 8.3 L (8.6-10.3) mg/dL Adrenal panel 04/18/18 Range/Units 04:07 Sodium 135 L (136-145) mEq/L Potassium 3.4 L (3.5-5.1) mEq/L Chloride 105 (98-107) mEq/L Carbon Dioxide 24 (23-29) mEq/L BUN 14 (6-20) mg/dL Creatinine 1.39 H (0.70-1.30) mg/dL Glucose 108 H (70-105) mg/dL Calcium 8.3 L (8.6-10.3) mg/dL
--- NOTE | 2018-04-18 10:51 | Internal Med Progress Note ---
<Lou Sibley - Last Filed: 04/18/18 13:15> Hospitalist Progress Note - Encounter Date of Encounter: 04/18/18 Time of Encounter: 10:15 - Subjective Interval History: Patient seen and examined at bedside. He is alert and oriented times 3. He stated improvement of groin pain but stated that right-sided back pain is worse today. No difficulty urinating. He still reports rectal pain. He denies fever, chills, nausea, vomiting, hematuria, dysuria. - Exam Vitals: Temp Pulse Resp BP Pulse Ox 99.0 F 86 16 124/67 92 04/18/18 07:07 04/18/18 07:07 04/18/18 07:07 04/18/18 07:07 04/18/18 07:07 Exam: Gen.: Vitals noted. No acute distress. AAOx3 HEENT: oropharynx clear, Normocephalic, atraumatic Neck: Supple. No adenopathy. Cardiac: RRR, no murmur, +S1/S2 Pulmonary: CTA bilaterally, no wheezes, rales or rhonchi, equal chest expansion Abdomen: soft, non-tender, Bowel sounds noted, no guarding Back: right CVA tender Extremities: no BLE edema, nontender calf, no cyanosis or clubbing Neuro: A&Ox3, moves all extremities, no focal deficits Psych: Appropriate mood and behavior - Assessment and Plan (1) Perirectal abscess Current Visit: Yes Status: Acute Assessment and Plan: Perirectal abscess on imaging. Unresolved abscess since given steroids in PO antibiotics without incision and drainage when previously evaluated in ED a week ago. Abdomen/pelvis CT demonstrating small 15 mm left perirectal abscess and moderately obstructing 6 mm distal right ureteral calculus. Afebrile, and non-septic, hemodynamically stable stool occult positive in setting of rectal abscess WBC 14.5 increased, afebrile Plan: -general surgery has evaluated the patient and recommends to continue antibiotics and will serially examine the patient to determine need for further intervention. Also recommend that if WBC rises then CT Abd with PO and IV contrast. -will continue IV ciprofloxacin and Flagyl day 3 -will monitor WBC and for fevers -oxycodone for pain (2) Hydronephrosis with obstructing calculus Current Visit: Yes Status: Acute Assessment and Plan: Imaging demonstrating kidney stone. No prior history of kidney stones. Abdomen/pelvis CT demonstrating small 15 mm left perirectal abscess and moderately obstructing 6 mm distal right ureteral calculus. Urinalysis: moderate blood, + leukocyte esterase, RBC 30-50, WBC 5-15 Plan: -Patient has worsened right CVA tenderness on palpation. He does not know if he has passed the stone. No abdominal pain. -urology following in is not believe the patient's needs intervention at this time, however recommends repeat CT imaging in 3-4 weeks to confirm resolution of hydronephrosis. -Flomax and 1 L IVF ordered -strain cap ordered for urination to filter the stone -will continue to monitor (3) Tobacco abuse Current Visit: Yes Status: Chronic Assessment and Plan: Counseled on cessation (4) Acute kidney injury Current Visit: Yes Status: Acute Assessment and Plan: Acute kidney injury, etiology post renal in setting of right-sided kidney stone causing hydronephrosis Abdomen/pelvis CT demonstrating moderately obstructing 6 mm distal right ureteral calculus. Creatinine 1.39 (1.17 at admission) I&O: 4804/1200 Plan: -will continue to monitor serum creatinine as this will likely resolved once k idney stone has passed. -Continue to monitor urine output -continue IV fluids and Flomax to aid in passing of kidney stone DVT Prophylaxis: heparin sq - Time Spent with Patient Total time spent is greater than 50% in coordination of care (as documented) at patient's floor/unit and/or counseling patient: Internal Medicine: Result - Labs CBC & Chem 7: 04/18/18 04:07 04/18/18 04:07 Labs: Short CBC 04/18/18 Range/Units 04:07 WBC 14.5 H (4.3-11.1) K/mcL Hgb 11.6 L (12.9-16.9) g/dL Hct 33.7 L (37.5-50.1) % Plt Count 221 (140-400) K/mcL Neutrophils # 10.9 H (1.6-8.9) K/mcL BMP 04/18/18 04:07 Sodium 135 L Potassium 3.4 L Chloride 105 Carbon Dioxide 24 BUN 14 Creatinine 1.39 H Glucose 108 H Calcium 8.3 L Consult Discharge Plan - Plan Referrals: NONE,PCP [Primary Care Provider] - <Rosa Thomas - Last Filed: 04/18/18 15:50> Hospitalist Progress Note - Encounter Date of Encounter: 04/18/18 - Exam Vitals: Temp Pulse Resp BP Pulse Ox 99.4 F 83 16 119/67 94 04/18/18 11:32 04/18/18 11:32 04/18/18 11:32 04/18/18 11:32 04/18/18 11:32 - Assessment and Plan (1) Perirectal abscess Current Visit: Yes Status: Acute (2) Hydronephrosis with obstructing calculus Current Visit: Yes Status: Acute (3) Tobacco abuse Current Visit: Yes Status: Chronic (4) Acute kidney injury Current Visit: Yes Status: Acute - Time Spent with Patient Total time spent is greater than 50% in coordination of care (as documented) at patient's floor/unit and/or counseling patient: Internal Medicine: Result - Labs CBC & Chem 7: 04/18/18 04:07 04/18/18 04:07 Labs: Short CBC 04/18/18 Range/Units 04:07 WBC 14.5 H (4.3-11.1) K/mcL Hgb 11.6 L (12.9-16.9) g/dL Hct 33.7 L (37.5-50.1) % Plt Count 221 (140-400) K/mcL Neutrophils # 10.9 H (1.6-8.9) K/mcL BMP 04/18/18 04:07 Sodium 135 L Potassium 3.4 L Chloride 105 Carbon Dioxide 24 BUN 14 Creatinine 1.39 H Glucose 108 H Calcium 8.3 L - Attending Attestation I examined this patient and my medical decision-making was reviewed with the Resident Physician Dr Sibley. I agree with the documented findings, disposition and treatment plan as described except to the extent set forth below. Mr Moscoso is currently admitted for perirectal abscess and kidney stone. awake, denies fevers or chills. right low back pain, urinating without diffic ulty, denies hematuria. denies drainage from abscess gen- alert, awake,appears stated age eyes- pupils equal round cv- reg rate and rhythm, normal s1,s2, no murmurs appreciated lungs- ctabl, no wheezing, rhonchi or crackles abd- soft, non tender, non distended, + bs neuro- AAOx 1. Perirectal abscess - on IV abx. serial exams by surgery, no I&D at this time, if wbc elevate tomorrow will reimage 2. Kidney stone - flomax, IVFs and monitoring, urology no rec for intervention at this time 3. MÓNICA in setting of kidney stone- treatment as above, ua without infection, cont to monitor, avoid nephro toxins. 4. Acute anemia, unclear etiology, ? related to abscess- fobt +, surgery following, will monitor for active bleeding, hgb now stable further diagnoses and treatment as documented by resident
[2018-04-18] MEDS: *HR* Heparin 5,000 UNIT/ML VIAL SQ SCH ×2 (15:19→20:59)
[2018-04-19 05:35] LABS: Basophils % 0.3 %; Eosinophils # 0.1 K/mcL (0.0-0.6); Eosinophils % 0.4 %; Hematocrit 31.1 % (37.5-50.1); Hemoglobin 10.9 g/dL (12.9-16.9); Immature Granulocytes % 0.4 % (0-4); Lymphocytes # 2.2 K/mcL (0.6-4.6); Lymphocytes % 15.5 %; Mean Corpuscular Hemoglobin 29.1 pg (28.0-33.3); Mean Corpuscular Volume 82.9 fL (83.0-100.0); Mean Platelet Volume 10.8 fL (9.4-12.4); Monocytes # 1.9 K/mcL (0.0-1.3); Monocytes % 13.3 %; Neutrophils # 9.9 K/mcL (1.6-8.9); Platelet Count 202 K/mcL (140-400); Red Blood Count 3.75 M/mcL (4.19-5.50); Red Cell Distribution Width 13.2 % (11.5-14.5); Segmented Neutrophils % 70.1 %
[2018-04-19] MEDS: *HR* OxyCODONE Immed Rel 5 MG TABLET PO PRN ×3 (05:41→20:36)
[2018-04-19] MEDS: *HR* Heparin 5,000 UNIT/ML VIAL SQ SCH ×3 (05:42→20:28)
[2018-04-19] MEDS: Ringers Solution, Lactated 1,000 ML IVC SCH ×3 (05:42→19:29)
[2018-04-19 05:56] LABS: BUN/Creatinine Ratio 10 (6-26); Blood Urea Nitrogen 11 mg/dL (6-20); Calcium 8.4 mg/dL (8.6-10.3); Carbon Dioxide 25 mEq/L (23-29); Chloride 105 mEq/L (98-107); Glucose 95 mg/dL (70-105); Magnesium 1.7 mg/dL (1.6-2.6); Osmolality,Calculated 279 (280-300); Potassium 3.4 mEq/L (3.5-5.1); Sodium 135 mEq/L (136-145); eGFR For Non-African Americans > 60 (> 60)
[2018-04-19] MEDS ORDERED: Isovue-370 500 ML INFUS..BTL IV ONE (09:18)
--- NOTE | 2018-04-19 09:18 | General Surgery Progress Note ---
Date of Encounter: 04/19/18 Time of Encounter: 09:16 - Assessment and Plan (1) Ulcerative rectosigmoiditis with abscess Current Visit: Yes Status: Acute 52M with inflammation of distal rectum with concern for possible 15mm abscess (inc 3mm in size); currently afebrile, steam tender on rectal exam diet: okay for diet as tolerated pain: per primary team cont IV abx regimen CT scan today: PO/IV contrast will plan for REUA on 04/20 discussed with patient Subjective Patient reports: no new complaints, feels better, still having pain, tolerating a regular diet, flatus, afebrile Objective Vital Signs - Last 8 Hours Temp Pulse Resp BP Pulse Ox 04/19/18 06:48 99.0 F 85 16 112/65 93 04/19/18 03:51 99.1 F 89 16 113/69 91 Intake and Output 04/18/18 04/19/18 04/19/18 23:59 07:59 15:59 Intake Total 1300 / 1300 1300 / 1300 Output Total 1000 / 1000 700 / 700 Balance 300 / 300 600 / 600 Intake: IV Fluids 1300 / 1300 1300 / 1300 Lactated Ringers 1,000 ML @ 125 1000 / 1000 1000 / 1000 mls/hr IVC .Q8H [facility] Rx#: [id number] Cipro Premix 400 MG/200 ML 400 200 / 200 200 / 200 mg In 200 ml @ 200 mls/hr IVPB Q12HR [facility] Rx#:[id number] Flagyl Premix 500 MG/100 ML 500 100 / 100 100 / 100 mg In 100 ml @ 100 mls/hr IVPB Q8HR [facility] Rx#:[id number] Output: Urine 1000 / 1000 700 / 700 - General physical appearance no distress - Respiratory normal expansion, normal respiratory effort - Cardiovascular Cardiovascular exam: Present: RRR - Abdomen Abdomen: Present: soft, non tender - Rectum other (tender; unable to get a good exam; no obvious masses, no drainage) - Neurologic CN 2-12 grossly intact - Psychiatric oriented to time, oriented to person, oriented to place - Labs 04/19/18 04:58 04/19/18 04:58 Diabetes panel 04/19/18 Range/Units 04:58 Sodium 135 L (136-145) mEq/L Potassium 3.4 L (3.5-5.1) mEq/L Chloride 105 (98-107) mEq/L Carbon Dioxide 25 (23-29) mEq/L BUN 11 (6-20) mg/dL Creatinine 1.12 (0.70-1.30) mg/dL Glucose 95 (70-105) mg/dL Calcium 8.4 L (8.6-10.3) mg/dL Calcium panel 04/19/18 Range/Units 04:58 Calcium 8.4 L (8.6-10.3) mg/dL Pituitary panel 04/19/18 Range/Units 04:58 Sodium 135 L (136-145) mEq/L Potassium 3.4 L (3.5-5.1) mEq/L Chloride 105 (98-107) mEq/L Carbon Dioxide 25 (23-29) mEq/L BUN 11 (6-20) mg/dL Creatinine 1.12 (0.70-1.30) mg/dL Glucose 95 (70-105) mg/dL Calcium 8.4 L (8.6-10.3) mg/dL Adrenal panel 04/19/18 Range/Units 04:58 Sodium 135 L (136-145) mEq/L Potassium 3.4 L (3.5-5.1) mEq/L Chloride 105 (98-107) mEq/L Carbon Dioxide 25 (23-29) mEq/L BUN 11 (6-20) mg/dL Creatinine 1.12 (0.70-1.30) mg/dL Glucose 95 (70-105) mg/dL Calcium 8.4 L (8.6-10.3) mg/dL Consult Discharge Plan - Plan Referrals: NONE,PCP [Primary Care Provider] -
[2018-04-19] MEDS: OXYCODONE Oral CONC 10 MG/0.5 ML ORAL.SYG SL PRN ×2 (10:52→18:18)
[2018-04-19] MEDS: MetroNIDAZOLE 500 MG/100 ML 500 MG/100 ML BAG IVPB SCH ×2 (11:01→16:07)
--- NOTE | 2018-04-19 12:12 | Internal Med Progress Note ---
<Rosa Thomas - Last Filed: 04/19/18 14:25> Hospitalist Progress Note - Encounter Date of Encounter: 04/19/18 - Exam Vitals: Temp Pulse Resp BP Pulse Ox 98 F 80 17 124/78 93 04/19/18 12:00 04/19/18 12:00 04/19/18 12:00 04/19/18 12:00 04/19/18 12:00 - Assessment and Plan (1) Perirectal abscess Current Visit: Yes Status: Acute (2) Hydronephrosis with obstructing calculus Current Visit: Yes Status: Acute (3) Tobacco abuse Current Visit: Yes Status: Chronic (4) Acute kidney injury Current Visit: Yes Status: Acute - Time Spent with Patient Total time spent is greater than 50% in coordination of care (as documented) at patient's floor/unit and/or counseling patient: Internal Medicine: Result - Labs CBC & Chem 7: 04/19/18 04:58 04/19/18 04:58 Labs: Short CBC 04/19/18 Range/Units 04:58 WBC 14.1 H (4.3-11.1) K/mcL Hgb 10.9 L (12.9-16.9) g/dL Hct 31.1 L (37.5-50.1) % Plt Count 202 (140-400) K/mcL Neutrophils # 9.9 H (1.6-8.9) K/mcL BMP 04/19/18 04:58 Sodium 135 L Potassium 3.4 L Chloride 105 Carbon Dioxide 25 BUN 11 Creatinine 1.12 Glucose 95 Calcium 8.4 L - Impressions Impressions Abdomen/Pelvis CT 04/19/18 12:00 IMPRESSION: 1. No appreciable change in size in appearance of left perirectal/rectal wall abscess 2. Persistent changes of obstructive uropathy on the right, with worsening periureteral fat stranding and ureteral enhancement. Soft tissue prominence at the UVJ,, however no definite stone is demonstrated. In addition, there is wall thickening of the urinary bladder with perivesical fat stranding. These findings raise the possibility of cystitis with right-sided pyelitis. Obstructing tumor at the right UVJ on likely. Cystoscopy with retrograde evaluation may be helpful if there are not clear signs of urinary tract infection D/ / Renny Stoddard MD / Renny Stoddard MD Interpreting Provider: Renny Stoddard MD Consult Discharge Plan - Plan Referrals: NONE,PCP [Primary Care Provider] - - Attending Attestation I examined this patient and my medical decision-making was reviewed with the Resident Physician Dr Sibley. I agree with the documented findings, disposition and treatment plan as described except to the extent set forth below. Mr Moscoso is currently admitted for perirectal abscess and kidney stone. awake, denies fevers or chills.+ rectal pain, + discharge, but no blood. discus sed + fobt and he was aware. no history of scope. right low back pain is resolved, he believes he may have passed stone, but did not visualize it. no hematuria, dysuria. gen- alert, awake,appears stated age cv- reg rate and rhythm, normal s1,s2, no murmurs appreciated lungs- ctabl, no wheezing, rhonchi or crackles abd- soft, non tender, non distended, + bs neuro- AAOx 1. Perirectal abscess with leukocytosis and fever yesterday - on IV abx. serial exams by surgery, plan for procedure in am, repeat ct a/p today unchanged, if recurrent fever will send bl cxs 2. Kidney stone - flomax, IVFs and monitoring, urology no rec for intervention at this time, repeat ct today with concern for cystitis, ucx sent 3. MÓNICA in setting of kidney stone, resolved- treatment as above, cont to monitor, avoid nephro toxins. 4. Acute anemia, unclear etiology, ? related to abscess- fobt +, surgery following, procedure in am, ua had blood with stone, no active bleeding, will monitor for active bleeding, hgb stable further diagnoses and treatment as documented by resident <Lou Sibley - Last Filed: 04/19/18 16:47> Hospitalist Progress Note - Encounter Date of Encounter: 04/19/18 Time of Encounter: 09:55 - Subjective Interval History: Patient seen and examined at bedside. He is alert and oriented times 3. He stated improvement of groin pain but stated that right-sided back pain is worse today. No difficulty urinating. He still reports rectal pain. He denies fever, chills, nausea, vomiting, hematuria, dysuria. - Exam Vitals: Temp Pulse Resp BP Pulse Ox 98 F 80 17 124/78 93 04/19/18 12:00 04/19/18 12:00 04/19/18 12:00 04/19/18 12:00 04/19/18 12:00 Exam: Gen.: Vitals noted. No acute distress. AAOx3 HEENT: oropharynx clear, Normocephalic, atraumatic Neck: Supple. No adenopathy. Cardiac: RRR, no murmur, +S1/S2 Pulmonary: CTA bilaterally, no wheezes, rales or rhonchi, equal chest expansion Abdomen: soft, non-tender, Bowel sounds noted, no guarding Back: non tender Extremities: no BLE edema, nontender calf, no cyanosis or clubbing Neuro: A&Ox3, moves all extremities, no focal deficits Psych: Appropriate mood and behavior - Assessment and Plan (1) Perirectal abscess Current Visit: Yes Status: Acute Assessment and Plan: Perirectal abscess on imaging. Unresolved abscess since given steroids in PO antibiotics without incision and drainage when previously evaluated in ED a week ago. Initial Abdomen/pelvis CT demonstrating small 15 mm left perirectal abscess and moderately obstructing 6 mm distal right ureteral calculus. Afebrile, and non-septic, hemodynamically stable stool occult positive in setting of rectal abscess WBC 14.1, afebrile Repeat abdominal/pelvis CT with contrast demonstrating unchanged size of perirectal abscess. Persistent obstructive uropathy on the right with worsening with perireteral fat stranding and ureteral enhancement. Urinary bladder wall thickening with perivesical fat stranding. Concerning for cystitis with right- sided pyelitis. Recommending cystoscopy with retrograde evaluation. Plan: -general surgery has evaluated the patient and recommends to continue antibiotics, make NPO. Contemplating between having IR for drainage vs rectal exam under anesthesia. General surgery to make final decision in a.m. -will continue IV ciprofloxacin and Flagyl day 4 -will monitor WBC and for fevers -oxycodone for pain (2) Hydronephrosis with obstructing calculus Current Visit: Yes Status: Acute Assessment and Plan: Imaging demonstrating kidney stone. No prior history of kidney stones. Abdomen/pelvis CT demonstrating small 15 mm left perirectal abscess and moderate ly obstructing 6 mm distal right ureteral calculus. Urinalysis: moderate blood, + leukocyte esterase, RBC 30-50, WBC 5-15 Repeat abdominal/pelvis CT with contrast demonstrating unchanged size of ntiza rectal abscess. Persistent obstructive uropathy on the right with worsening with perireteral fat stranding and ureteral enhancement. Urinary bladder wall thickening with perivesical fat stranding. Concerning for cystitis with right- sided pyelitis. Recommending cystoscopy with retrograde evaluation. Plan: - -urology following in is not believe the patient's needs intervention at this time. Appreciate the recommendations -Flomax and 1 L IVF ordered -strain cap ordered for urination to filter the stone -will continue to monitor (3) Acute kidney injury Current Visit: Yes Status: Acute Assessment and Plan: Acute kidney injury, etiology post renal in setting of right-sided kidney stone causing hydronephrosis Abdomen/pelvis CT demonstrating moderately obstructing 6 mm distal right ureteral calculus. Creatinine 1.12 (1.39) I&O: 2940/1950 Plan: -patient has had improved creatinine with acceptable urine output. -Continue to monitor urine output and serum creatinine -continue IV fluids and Flomax (4) Tobacco abuse Current Visit: Yes Status: Chronic Assessment and Plan: Counseled on cessation - Time Spent with Patient Total time spent is greater than 50% in coordination of care (as documented) at patient's floor/unit and/or counseling patient: Internal Medicine: Result - Labs CBC & Chem 7: 04/19/18 04:58 04/19/18 04:58 Labs: Short CBC 04/19/18 Range/Units 04:58 WBC 14.1 H (4.3-11.1) K/mcL Hgb 10.9 L (12.9-16.9) g/dL Hct 31.1 L (37.5-50.1) % Plt Count 202 (140-400) K/mcL Neutrophils # 9.9 H (1.6-8.9) K/mcL BMP 04/19/18 04:58 Sodium 135 L Potassium 3.4 L Chloride 105 Carbon Dioxide 25 BUN 11 Creatinine 1.12 Glucose 95 Calcium 8.4 L
--- NOTE | 2018-04-19 16:11 | Urology Progress Note ---
Date of Encounter: 04/19/18 Time of Encounter: 16:09 - Assessment and Plan (1) Hydronephrosis with obstructing calculus Current Visit: Yes Status: Acute Assessment and plan: Patient's hydronephrosis appears stable at this time. Ureteral inflammation possibly secondary to infection versus mass at the UVJ. No urgent need for tr eatment as patient's serum creatinine has improved towards normal. Patient will require likely right ureteroscopy in the future but no urgent need as patient is going to undergo abscess drainage tomorrow. We will continue to follow along while patient in hospital. Progress Note Narrative: Patient was seen and examined this morning. Patient denies any flank pain. CT scan was done today which revealed some right periureteral stranding but no obvious obstructing lesion or mass. Serum creatinine has returned towards normal. Objective Initial Vital Signs Temp Pulse Resp BP Pulse Ox 98.0 F 86 14 157/85 97 04/16/18 11:41 04/16/18 11:41 04/16/18 11:41 04/16/18 11:41 04/16/18 11:41 - General physical appearance Present: well developed, well nourished - Abdomen Present: soft. Absent: tender - Integumentary Present: no growths, no abnormal pigmentation - Musculoskeletal Present: normal posture - Labs 04/19/18 04:58 04/19/18 04:58 Diabetes panel 04/19/18 Range/Units 04:58 Sodium 135 L (136-145) mEq/L Potassium 3.4 L (3.5-5.1) mEq/L Chloride 105 (98-107) mEq/L Carbon Dioxide 25 (23-29) mEq/L BUN 11 (6-20) mg/dL Creatinine 1.12 (0.70-1.30) mg/dL Glucose 95 (70-105) mg/dL Calcium 8.4 L (8.6-10.3) mg/dL Calcium panel 04/19/18 Range/Units 04:58 Calcium 8.4 L (8.6-10.3) mg/dL Pituitary panel 04/19/18 Range/Units 04:58 Sodium 135 L (136-145) mEq/L Potassium 3.4 L (3.5-5.1) mEq/L Chloride 105 (98-107) mEq/L Carbon Dioxide 25 (23-29) mEq/L BUN 11 (6-20) mg/dL Creatinine 1.12 (0.70-1.30) mg/dL Glucose 95 (70-105) mg/dL Calcium 8.4 L (8.6-10.3) mg/dL Adrenal panel 04/19/18 Range/Units 04:58 Sodium 135 L (136-145) mEq/L Potassium 3.4 L (3.5-5.1) mEq/L Chloride 105 (98-107) mEq/L Carbon Dioxide 25 (23-29) mEq/L BUN 11 (6-20) mg/dL Creatinine 1.12 (0.70-1.30) mg/dL Glucose 95 (70-105) mg/dL Calcium 8.4 L (8.6-10.3) mg/dL Consult Discharge Plan - Plan Referrals: NONE,PCP [Primary Care Provider] -
[2018-04-20] MEDS: MetroNIDAZOLE 500 MG/100 ML 500 MG/100 ML BAG IVPB SCH ×4 (00:04→23:37)
[2018-04-20] MEDS: *HR* OxyCODONE Immed Rel 5 MG TABLET PO PRN ×3 (05:42→23:37)
[2018-04-20 05:45] LABS: Basophils # 0.1 K/mcL (0.0-0.2); Basophils % 0.6 %; Eosinophils # 0.2 K/mcL (0.0-0.6); Eosinophils % 2.4 %; Hematocrit 31.2 % (37.5-50.1); Hemoglobin 10.5 g/dL (12.9-16.9); Immature Granulocytes % 0.2 % (0-4); Lymphocytes # 1.8 K/mcL (0.6-4.6); Lymphocytes % 20.3 %; Mean Corpuscular HGB Conc 33.7 g/dL (31.6-35.5); Mean Corpuscular Hemoglobin 28.5 pg (28.0-33.3); Mean Corpuscular Volume 84.6 fL (83.0-100.0); Mean Platelet Volume 11.1 fL (9.4-12.4); Monocytes % 11.1 %; Neutrophils # 5.9 K/mcL (1.6-8.9); Platelet Count 214 K/mcL (140-400); Red Blood Count 3.69 M/mcL (4.19-5.50); Red Cell Distribution Width 13.1 % (11.5-14.5); Segmented Neutrophils % 65.4 %
[2018-04-20] MEDS: Ringers Solution, Lactated 1,000 ML IVC SCH ×3 (05:55→23:39)
[2018-04-20] MEDS: *HR* Heparin 5,000 UNIT/ML VIAL SQ SCH ×3 (05:57→20:35)
[2018-04-20 06:09] LABS: BUN/Creatinine Ratio 11 (6-26); Blood Urea Nitrogen 10 mg/dL (6-20); Calcium 8.4 mg/dL (8.6-10.3); Carbon Dioxide 25 mEq/L (23-29); Chloride 107 mEq/L (98-107); Glucose 91 mg/dL (70-105); Magnesium 2.1 mg/dL (1.6-2.6); Osmolality,Calculated 285 (280-300); Potassium 3.8 mEq/L (3.5-5.1); Sodium 138 mEq/L (136-145); eGFR For Non-African Americans > 60 (> 60)
--- NOTE | 2018-04-20 08:27 | Urology Progress Note ---
<Sarah Edmond N - Last Filed: 04/20/18 08:24> Date of Encounter: 04/20/18 Time of Encounter: 07:45 - Assessment and Plan (1) Hydronephrosis with obstructing calculus Current Visit: Yes Status: Acute Assessment and plan: Patient is a 52-year-old male who presents with a history of right periureteral stranding and questionable obstruction. After reviewing CT images, the urology team does not feel there is any obstructive uropathy. Creatinine has returned to normal. Mr. Moscoso may follow up as an outpatient with [facility] within 2 weeks of discharge. Progress Note Subjective: no new complaints, feels better Narrative: Patient seen and examined sitting upright in bed in no apparent distress. Patient is voiding without difficulty. Patient declines fever, chills, flank pain, gross hematuria. Objective Initial Vital Signs Temp Pulse Resp BP Pulse Ox 98.0 F 86 14 157/85 97 04/16/18 11:41 04/16/18 11:41 04/16/18 11:41 04/16/18 11:41 04/16/18 11:41 - General physical appearance Present: well developed, no distress, no pain - Respiratory Present: normal expansion, normal respiratory effort - Abdomen Present: soft, non tender - Integumentary Present: no rash, no abnormal pigmentation - Musculoskeletal Present: normal posture - Psychiatric Present: oriented to time, oriented to person, oriented to place, speech is normal, memory intact - Labs 04/20/18 04:52 04/20/18 04:52 Diabetes panel 04/20/18 Range/Units 04:52 Sodium 138 (136-145) mEq/L Potassium 3.8 (3.5-5.1) mEq/L Chloride 107 (98-107) mEq/L Carbon Dioxide 25 (23-29) mEq/L BUN 10 (6-20) mg/dL Creatinine 0.88 (0.70-1.30) mg/dL Glucose 91 (70-105) mg/dL Calcium 8.4 L (8.6-10.3) mg/dL Calcium panel 04/20/18 Range/Units 04:52 Calcium 8.4 L (8.6-10.3) mg/dL Pituitary panel 04/20/18 Range/Units 04:52 Sodium 138 (136-145) mEq/L Potassium 3.8 (3.5-5.1) mEq/L Chloride 107 (98-107) mEq/L Carbon Dioxide 25 (23-29) mEq/L BUN 10 (6-20) mg/dL Creatinine 0.88 (0.70-1.30) mg/dL Glucose 91 (70-105) mg/dL Calcium 8.4 L (8.6-10.3) mg/dL Adrenal panel 04/20/18 Range/Units 04:52 Sodium 138 (136-145) mEq/L Potassium 3.8 (3.5-5.1) mEq/L Chloride 107 (98-107) mEq/L Carbon Dioxide 25 (23-29) mEq/L BUN 10 (6-20) mg/dL Creatinine 0.88 (0.70-1.30) mg/dL Glucose 91 (70-105) mg/dL Calcium 8.4 L (8.6-10.3) mg/dL Consult Discharge Plan - Plan Referrals: NONE,PCP [Primary Care Provider] - <Cliff Villareal - Last Filed: 04/20/18 16:08> Date of Encounter: 04/20/18 - Assessment and Plan (1) Hydronephrosis with obstructing calculus Current Visit: Yes Status: Acute Assessment and plan: Patient was seen and examined independently. I agree with the plan as written by Sarah Edmond. Patient can follow up with urology in 2-3 weeks with either planned right ureteroscopy or CT urogram. Objective Initial Vital Signs Temp Pulse Resp BP Pulse Ox 98.0 F 86 14 157/85 97 04/16/18 11:41 04/16/18 11:41 04/16/18 11:41 04/16/18 11:41 04/16/18 11:41 - Labs 04/20/18 04:52 04/20/18 04:52 Diabetes panel 04/20/18 Range/Units 04:52 Sodium 138 (136-145) mEq/L Potassium 3.8 (3.5-5.1) mEq/L Chloride 107 (98-107) mEq/L Carbon Dioxide 25 (23-29) mEq/L BUN 10 (6-20) mg/dL Creatinine 0.88 (0.70-1.30) mg/dL Glucose 91 (70-105) mg/dL Calcium 8.4 L (8.6-10.3) mg/dL Calcium panel 04/20/18 Range/Units 04:52 Calcium 8.4 L (8.6-10.3) mg/dL Pituitary panel 04/20/18 Range/Units 04:52 Sodium 138 (136-145) mEq/L Potassium 3.8 (3.5-5.1) mEq/L Chloride 107 (98-107) mEq/L Carbon Dioxide 25 (23-29) mEq/L BUN 10 (6-20) mg/dL Creatinine 0.88 (0.70-1.30) mg/dL Glucose 91 (70-105) mg/dL Calcium 8.4 L (8.6-10.3) mg/dL Adrenal panel 04/20/18 Range/Units 04:52 Sodium 138 (136-145) mEq/L Potassium 3.8 (3.5-5.1) mEq/L Chloride 107 (98-107) mEq/L Carbon Dioxide 25 (23-29) mEq/L BUN 10 (6-20) mg/dL Creatinine 0.88 (0.70-1.30) mg/dL Glucose 91 (70-105) mg/dL Calcium 8.4 L (8.6-10.3) mg/dL
--- NOTE | 2018-04-20 09:55 | Internal Med Progress Note ---
<Rosa Thomas - Last Filed: 04/20/18 12:03> Hospitalist Progress Note - Encounter Date of Encounter: 04/20/18 - Exam Vitals: Temp Pulse Resp BP Pulse Ox 98.9 F 63 16 132/61 94 04/20/18 11:29 04/20/18 11:29 04/20/18 11:29 04/20/18 11:29 04/20/18 11:29 - Assessment and Plan (1) Perirectal abscess Current Visit: Yes Status: Acute (2) Hydronephrosis with obstructing calculus Current Visit: Yes Status: Acute (3) Tobacco abuse Current Visit: Yes Status: Chronic (4) Acute kidney injury Current Visit: Yes Status: Acute - Time Spent with Patient Total time spent is greater than 50% in coordination of care (as documented) at patient's floor/unit and/or counseling patient: Internal Medicine: Result - Labs CBC & Chem 7: 04/20/18 04:52 04/20/18 04:52 Labs: Short CBC 04/20/18 Range/Units 04:52 WBC 9.0 (4.3-11.1) K/mcL Hgb 10.5 L (12.9-16.9) g/dL Hct 31.2 L (37.5-50.1) % Plt Count 214 (140-400) K/mcL Neutrophils # 5.9 (1.6-8.9) K/mcL BMP 04/20/18 04:52 Sodium 138 Potassium 3.8 Chloride 107 Carbon Dioxide 25 BUN 10 Creatinine 0.88 Glucose 91 Calcium 8.4 L - Impressions Impressions Abdomen/Pelvis CT 04/19/18 12:00 IMPRESSION: 1. No appreciable change in size in appearance of left perirectal/rectal wall abscess 2. Persistent changes of obstructive uropathy on the right, with worsening periureteral fat stranding and ureteral enhancement. Soft tissue prominence at the UVJ,, however no definite stone is demonstrated. In addition, there is wall thickening of the urinary bladder with perivesical fat stranding. These findings raise the possibility of cystitis with right-sided pyelitis. Obstructing tumor at the right UVJ on likely. Cystoscopy with retrograde evaluation may be helpful if there are not clear signs of urinary tract infection D/ / Renny Stoddard MD / Renny Stoddard MD Interpreting Provider: Renny Stoddard MD Consult Discharge Plan - Plan Referrals: NONE,PCP [Primary Care Provider] - - Attending Attestation I examined this patient and my medical decision-making was reviewed with the Resident Physician Dr Sibley. I agree with the documented findings, disposition and treatment plan as described except to the extent set forth below. Mr Moscoso is currently admitted for perirectal abscess and kidney stone. awake, denies fevers or chills.cont rectal pain, no nausea, emesis, flank pain, cva tenderness or bladder pain. urinating without hesitancy. one small clot in urine overnight, denies melena, hematochezia, hematuria gen- alert, awake,appears stated age cv- reg rate and rhythm, normal s1,s2, no murmurs appreciated lungs- ctabl, no wheezing, rhonchi or crackles abd- soft, non tender, non distended, + bs skin- warm, dry no pallor neuro- AAOx 1. Perirectal abscess leukocytosis and fever resolved - on IV abx. serial exams by surgery, plan for procedure today, if recurrent fever will send bl cxs 2. Kidney stone - flomax, IVFs and monitoring, urology no rec for intervention at this time, repeat ct today with concern for cystitis and d/w urology, ucx pending follow up as an outpatient with [facility] within 2 weeks of discharge. 3. MÓNICA in setting of kidney stone, resolved 4. Acute anemia, unclear etiology, ? related to abscess- fobt +, surgery followi ng awaiting plan today, possible cscope and rectal exam under anaesthesia , ua had blood with stone, small clot in urine overnight, will monitor for active bleeding, hgb stable further diagnoses and treatment as documented by resident <Lou Sibley - Last Filed: 04/20/18 13:48> Hospitalist Progress Note - Encounter Date of Encounter: 04/20/18 Time of Encounter: 09:52 - Subjective Interval History: Patient seen and examined at bedside. He is alert and oriented times 3.No difficulty urinating. He still reports rectal pain. He denies fever, chills, nausea, vomiting, hematuria, dysuria. - Exam Vitals: Temp Pulse Resp BP Pulse Ox 98.9 F 61 16 118/65 93 04/20/18 07:35 04/20/18 07:35 04/20/18 07:35 04/20/18 07:35 04/20/18 07:35 Exam: Gen.: Vitals noted. No acute distress. AAOx3 HEENT: oropharynx clear, Normocephalic, atraumatic Neck: Supple. No adenopathy. Cardiac: RRR, no murmur, +S1/S2 Pulmonary: CTA bilaterally, no wheezes, rales or rhonchi, equal chest expansion Abdomen: soft, non-tender, Bowel sounds noted, no guarding Back: non tender Extremities: no BLE edema, nontender calf, no cyanosis or clubbing Neuro: A&Ox3, moves all extremities, no focal deficits Psych: Appropriate mood and behavior - Assessment and Plan (1) Perirectal abscess Current Visit: Yes Status: Acute Assessment and Plan: Perirectal abscess on imaging. Unresolved abscess since given steroids in PO antibiotics without incision and drainage when previously evaluated in ED a week ago. Initial Abdomen/pelvis CT demonstrating small 15 mm left perirectal abscess and moderately obstructing 6 mm distal right ureteral calculus. Afebrile, and non-septic, hemodynamically stable stool occult positive in setting of rectal abscess WBC 9, afebrile Repeat abdominal/pelvis CT with contrast demonstrating unchanged size of perirectal abscess. Persistent obstructive uropathy on the right with worsening with perireteral fat stranding and ureteral enhancement. Urinary bladder wall thickening with perivesical fat stranding. Concerning for cystitis with right- sided pyelitis. Recommending cystoscopy with retrograde evaluation. Plan: -general surgery to take patient to OR today. The nurse practitioner with general surgery reported that surgery is planning for colonoscopy tomorrow so will have bowel prep tonight. -will continue IV ciprofloxacin and Flagyl day 5 -will monitor WBC and for fevers -oxycodone for pain (2) Hydronephrosis with obstructing calculus Current Visit: Yes Status: Acute Assessment and Plan: Imaging demonstrating kidney stone. No prior history of kidney stones. Abdomen/pelvis CT demonstrating small 15 mm left perirectal abscess and moderately obstructing 6 mm distal right ureteral calculus. Urinalysis: moderate blood, + leukocyte esterase, RBC 30-50, WBC 5-15 Repeat abdominal/pelvis CT with contrast demonstrating unchanged size of perirectal abscess. Persistent obstructive uropathy on the right with worsening with perireteral fat stranding and ureteral enhancement. Urinary bladder wall thickening with perivesical fat stranding. Concerning for cystitis with right- sided pyelitis. Recommending cystoscopy with retrograde evaluation. Plan: -CVA tenderness and groin pain has resolved the patient does not have any difficulty urinating, dysuria, hematuria. He has likely passed the stone. Creatinine has also improved back to baseline. -urology following in is not believe the patient's needs intervention at this time. They will follow up with him outpatient within 2 weeks of discharge -continue Flomax -will continue to monitor (3) Tobacco abuse Current Visit: Yes Status: Chronic Assessment and Plan: Counseled on cessation (4) Acute kidney injury Current Visit: Yes Status: Acute Assessment and Plan: Acute kidney injury, etiology post renal in setting of right-sided kidney stone causing hydronephrosis Abdomen/pelvis CT demonstrating moderately obstructing 6 mm distal right ureteral calculus. Creatinine 0.88 (1.39) I&O: 2940/1950 Plan: -patient has had improved creatinine with acceptable urine output. -Continue to monitor urine output and serum creatinine -continue IV fluids and Flomax DVT Prophylaxis: heparin sq - Time Spent with Patient Total time spent is greater than 50% in coordination of care (as documented) at patient's floor/unit and/or counseling patient: Internal Medicine: Result - Labs CBC & Chem 7: 04/20/18 04:52 04/20/18 04:52 Labs: Short CBC 04/20/18 Range/Units 04:52 WBC 9.0 (4.3-11.1) K/mcL Hgb 10.5 L (12.9-16.9) g/dL Hct 31.2 L (37.5-50.1) % Plt Count 214 (140-400) K/mcL Neutrophils # 5.9 (1.6-8.9) K/mcL BMP 04/20/18 04:52 Sodium 138 Potassium 3.8 Chloride 107 Carbon Dioxide 25 BUN 10 Creatinine 0.88 Glucose 91 Calcium 8.4 L - Impressions Impressions Abdomen/Pelvis CT 04/19/18 12:00
--- NOTE | 2018-04-20 14:14 | Event Note ---
Date of Encounter: 04/20/18 Time of Encounter: 14:13 Bowel prep ordered to begin after rectal exam under anesthesia today. May have clear liquids after procedure today, no red dye. NPO at midnight for colonoscopy tomorrow.
[2018-04-20] MEDS ORDERED: *HR* Midazolam HCl 2 MG/2 ML VIAL ONE (15:58)
[2018-04-20] MEDS ORDERED: Ondansetron 4 MG/2 ML VIAL ONE (15:58)
[2018-04-20] MEDS ORDERED: Dexamethasone 4 MG/ML VIAL ONE ×2 (15:58→16:00)
[2018-04-20] MEDS ORDERED: *HR* Propofol 200 MG/20 ML VIAL IVP ONE (15:58)
[2018-04-20] MEDS ORDERED: Lidocaine -MPF 2% 2 ML VIAL ONE ×2 (15:58→15:59)
[2018-04-20] MEDS ORDERED: *HR* FentaNYL (PF) 100 MCG/2 ML VIAL ONE ×2 (15:58→16:54)
[2018-04-20] MEDS ORDERED: Albuterol 2.5 MG/3 ML NEBULIZER IH ONE (16:01)
[2018-04-20] MEDS ORDERED: Lidocaine Jelly 6ml 1 APPL/6 ML JEL.PF.APP ONE (16:01)
[2018-04-20] MEDS ORDERED: Albuterol 2.5 MG/3 ML NEBULIZER ONE (16:04)
--- NOTE | 2018-04-20 16:05 | Anesthesia Evaluation PreOp ---
Date of Encounter: 04/20/18 Time of Encounter: 16:00 - Past History Planned Operation: Rectal EUA Cardiac History: Denies any Significant Hx Pulmonary History: Smoker PROBATION MANAGER History: Denies Any Significant HX Other Medical History: Other Anesthesia History: No Prior Anesthetic Complications Alcohol Use: none Drug use: none Medications and Allergies No Known Home Drugs 04/16/18 [History] Allergy/AdvReac Type Severity Reaction Status Date / Time No Known Allergies Allergy Verified 04/16/18 15:15 - Meds/Allergy Pre-op Review Medications Reviewed: Yes Allergies Reviewed: Yes Beta Blockers on Current Med List: No Anesthesia Results - Labs 04/20/18 04:52 04/20/18 04:52 - Imaging EKG: report reviewed (SR) Anesthesia Exam O2 Sat O2 Sat by Pulse Oximetry 94 O2 Sat by Pulse Oximetry 93 O2 Sat by Pulse Oximetry 92 O2 Sat by Pulse Oximetry 94 O2 Sat by Pulse Oximetry 94 O2 Sat by Pulse Oximetry 94 Vital Signs Temp Pulse Resp BP Pulse Ox 98.0 F 86 14 157/85 97 04/16/18 11:41 04/16/18 11:41 04/16/18 11:41 04/16/18 11:41 04/16/18 11:41 Height: 5'10 Weight: 134 lbs NPO (# of Hours): MN Pain Scale: 0 - HEENT Pupil (Motor): Pupils equal, EOMI Mallampati: II Teeth: Normal Oral Opening: Greater than 3 - PROBATION MANAGER LOC: Oriented PROBATION MANAGER Motor: Normal RUE, Normal LUE, Normal RLE, Normal LLE, Normal Face PROBATION MANAGER Sensory: Normal: RUE, LUE, RLE, LLE, Face - Cardiac Rhythm: Regular Murmur: None JVD: No Carotid Bruit: No - Pulmonary Breath Sounds: bilateral Clear Respiratory Effort: Symmetrical Anesthesia Assess/Plan ASA Score: 2 Level of consciousness: Cooperative Anesthetic Plan: General Autologous Blood: No Monitoring Plan: Standard Monitors Recovery Plan: PACU (Discussed GA, agrees to proceed)
[2018-04-20] MEDS ORDERED: Acetaminophen IV 1,000 MG/100 ML INFUS..BTL ONE (16:40)
--- NOTE | 2018-04-20 17:56 | Operative Note ---
Date of procedure: 04/20/18 Pre-op diagnosis: rectal pain Post-op diagnosis: other (anal mass) Procedure: rectal exam under anesthesia biospy of rectal lesion Implants: none Complications: none Anesthesia: GETA Surgeon: Tank Salas Was there an yard assistant present: No Estimated blood loss (cc): 5 Specimen: biopsies of anal lesion Condition: stable Disposition: PACU Procedure in Detail: patient brought into the operating room suite. placed in lithotomy position. preoperative antibiotics were already given. underwent MAC anesthesia. mechanical dvt prophylaxis was placed prior to anesthesia. The patient was prepped and draped in the usual fashion. a timeout was held identifying correct patient, pathology, procedure, and physician. I started by performing a digital rectal exam and immediately i was able to appreciate a hardened region with 5cm of the anal verge. it was about 75% circumferential, friable. I placed the speculum for better visualization. I took biopsies of the lesion, controlled bleeding with gel foam coated in thrombin and concluded the case. The patient tolerated the procedure and was escorted to PACU in stable condition.
[2018-04-20] MEDS: OXYCODONE Oral CONC 10 MG/0.5 ML ORAL.SYG SL PRN (20:35)
[2018-04-21 05:42] LABS: BUN/Creatinine Ratio 12 (6-26); Blood Urea Nitrogen 10 mg/dL (6-20); Carbon Dioxide 23 mEq/L (23-29); Chloride 105 mEq/L (98-107); Glucose 227 mg/dL (70-105); Osmolality,Calculated 294 (280-300); Potassium 3.7 mEq/L (3.5-5.1); Sodium 139 mEq/L (136-145); eGFR For Non-African Americans > 60 (> 60)
[2018-04-21] MEDS: *HR* Heparin 5,000 UNIT/ML VIAL SQ SCH ×3 (05:47→21:15)
[2018-04-21] MEDS: *HR* OxyCODONE Immed Rel 5 MG TABLET PO PRN ×2 (05:50→07:57)
[2018-04-21 06:05] LABS: Hematocrit 33.7 % (37.5-50.1); Hemoglobin 11.3 g/dL (12.9-16.9); Immature Granulocytes % 0.4 % (0-4); Lymphocytes # 0.7 K/mcL (0.6-4.6); Lymphocytes % 9.2 %; Mean Corpuscular HGB Conc 33.5 g/dL (31.6-35.5); Mean Corpuscular Hemoglobin 28.5 pg (28.0-33.3); Mean Corpuscular Volume 84.9 fL (83.0-100.0); Mean Platelet Volume 10.5 fL (9.4-12.4); Monocytes # 0.4 K/mcL (0.0-1.3); Monocytes % 5.1 %; Neutrophils # 6.9 K/mcL (1.6-8.9); Platelet Count 268 K/mcL (140-400); Red Blood Count 3.97 M/mcL (4.19-5.50); Segmented Neutrophils % 85.3 %
[2018-04-21] MEDS: Ringers Solution, Lactated 1,000 ML IVC SCH ×2 (07:49→15:38)
[2018-04-21] MEDS: MetroNIDAZOLE 500 MG/100 ML 500 MG/100 ML BAG IVPB SCH ×3 (07:55→23:39)
--- NOTE | 2018-04-21 09:37 | Internal Med Progress Note ---
<Lou Sibley - Last Filed: 04/21/18 09:35> Hospitalist Progress Note - Encounter Date of Encounter: 04/21/18 Time of Encounter: 09:35 - Subjective Interval History: Patient seen and examined at bedside. He is alert and oriented times 3.No difficulty urinating. He still reports rectal pain. He denies fever, chills, nausea, vomiting, hematuria, dysuria. - Exam Vitals: Temp Pulse Resp BP Pulse Ox 97.6 F 60 20 120/68 91 04/21/18 07:51 04/21/18 07:51 04/21/18 07:51 04/21/18 07:51 04/21/18 07:51 Exam: Gen.: Vitals noted. No acute distress. AAOx3 HEENT: oropharynx clear, Normocephalic, atraumatic Neck: Supple. No adenopathy. Cardiac: RRR, no murmur, +S1/S2 Pulmonary: CTA bilaterally, no wheezes, rales or rhonchi, equal chest expansion Abdomen: soft, non-tender, Bowel sounds noted, no guarding Back: non tender Extremities: no BLE edema, nontender calf, no cyanosis or clubbing Neuro: A&Ox3, moves all extremities, no focal deficits Psych: Appropriate mood and behavior - Assessment and Plan (1) Perirectal abscess Current Visit: Yes Status: Acute Assessment and Plan: Perirectal abscess on imaging. Unresolved abscess since given steroids in PO antibiotics without incision and drainage when previously evaluated in ED a week ago. Initial Abdomen/pelvis CT demonstrating small 15 mm left perirectal abscess and moderately obstructing 6 mm distal right ureteral calculus. Afebrile, and non-septic, hemodynamically stable stool occult positive in setting of rectal abscess WBC WNL, afebrile Repeat abdominal/pelvis CT with contrast demonstrating unchanged size of perirectal abscess. Persistent obstructive uropathy on the right with worsening with perireteral fat stranding and ureteral enhancement. Urinary bladder wall thickening with perivesical fat stranding. Concerning for cystitis with right- sided pyelitis. Plan: -general surgery to take patient for colonoscopy today. -will continue IV ciprofloxacin and Flagyl day 6 -oxycodone for pain (2) Hydronephrosis with obstructing calculus Current Visit: Yes Status: Acute Assessment and Plan: Imaging demonstrating kidney stone. No prior history of kidney stones. Abdomen/pelvis CT demonstrating small 15 mm left perirectal abscess and moderately obstructing 6 mm distal right ureteral calculus. Urinalysis: moderate blood, + leukocyte esterase, RBC 30-50, WBC 5-15 Repeat abdominal/pelvis CT with contrast demonstrating unchanged size of perirectal abscess. Persistent obstructive uropathy on the right with worsening with perireteral fat stranding and ureteral enhancement. Urinary bladder wall thickening with perivesical fat stranding. Concerning for cystitis with right- sided pyelitis. Recommending cystoscopy with retrograde evaluation. Plan: -CVA tenderness and groin pain has resolved the patient does not have any difficulty urinating, dysuria, hematuria. He has likely passed the stone. Creatinine has also improved back to baseline. -urology following in is not believe the patient's needs intervention at this time. They will follow up with him outpatient within 2 weeks of discharge - stop Flomax -will continue to monitor (3) Tobacco abuse Current Visit: Yes Status: Chronic Assessment and Plan: Counseled on cessation (4) Acute kidney injury Current Visit: Yes Status: Acute Assessment and Plan: Resolved. Acute kidney injury, etiology post renal in setting of right-sided kidney stone causing hydronephrosis Abdomen/pelvis CT demonstrating moderately obstructing 6 mm distal right ureteral calculus. Creatinine WNL I&O: appropriate urine output Plan: -Continue to monitor urine output and serum creatinine -continue IV fluids and Flomax (5) Lesion of rectum Current Visit: Yes Status: Acute Assessment and Plan: New lesion of the rectum that was biopsies by general surgery yesterday. Concerning for rectal cancer -patient informed and will await biopsy results. DVT Prophylaxis: heparin sq - Time Spent with Patient Total time spent is greater than 50% in coordination of care (as documented) at patient's floor/unit and/or counseling patient: Internal Medicine: Result - Labs CBC & Chem 7: 04/21/18 05:45 04/21/18 04:42 Labs: Short CBC 04/21/18 Range/Units 05:45 WBC 8.1 (4.3-11.1) K/mcL Hgb 11.3 L (12.9-16.9) g/dL Hct 33.7 L (37.5-50.1) % Plt Count 268 (140-400) K/mcL Neutrophils # 6.9 (1.6-8.9) K/mcL BMP 04/21/18 04:42 Sodium 139 Potassium 3.7 Chloride 105 Carbon Dioxide 23 BUN 10 Creatinine 0.83 Glucose 227 H Calcium 9.0 Consult Discharge Plan - Plan Referrals: NONE,PCP [Primary Care Provider] - <Rosa Thomas - Last Filed: 04/21/18 14:43> Hospitalist Progress Note - Encounter Date of Encounter: 04/21/18 - Exam Vitals: Temp Pulse Resp BP Pulse Ox 98 F 56 20 127/67 91 04/21/18 12:35 04/21/18 12:35 04/21/18 12:35 04/21/18 12:35 04/21/18 12:35 - Assessment and Plan (1) Perirectal abscess Current Visit: Yes Status: Acute (2) Hydronephrosis with obstructing calculus Current Visit: Yes Status: Acute (3) Tobacco abuse Current Visit: Yes Status: Chronic (4) Acute kidney injury Current Visit: Yes Status: Acute (5) Lesion of rectum Current Visit: Yes Status: Acute - Time Spent with Patient Total time spent is greater than 50% in coordination of care (as documented) at patient's floor/unit and/or counseling patient: Internal Medicine: Result - Labs CBC & Chem 7: 04/21/18 05:45 04/21/18 04:42 Labs: Short CBC 04/21/18 Range/Units 05:45 WBC 8.1 (4.3-11.1) K/mcL Hgb 11.3 L (12.9-16.9) g/dL Hct 33.7 L (37.5-50.1) % Plt Count 268 (140-400) K/mcL Neutrophils # 6.9 (1.6-8.9) K/mcL BMP 04/21/18 04:42 Sodium 139 Potassium 3.7 Chloride 105 Carbon Dioxide 23 BUN 10 Creatinine 0.83 Glucose 227 H Calcium 9.0 - Attending Attestation I examined this patient and my medical decision-making was reviewed with the Resident Physician Dr Sibley. I agree with the documented findings, disposition and treatment plan as described except to the extent set forth below. Mr Moscoso is currently admitted for perirectal abscess and kidney stone. Found to have rectal lesion concerning for malignancy awake, aware of surg procedure results and concern for rectal malignancy. cont pain, tolerable. no fevers, chills, flank pain, dysuria or hematuria, no clots or urinary hesitancy. gen- alert, awake,appears stated age cv- reg rate and rhythm, normal s1,s2, no murmurs appreciated lungs- ctabl, no wheezing, rhonchi or crackles neuro- AAOx3 Perirectal abscess found on rectal exam under anesthesia to be lesion concerning for malignancy -bx pending, cscope today, will cont abx Kidney stone, suspect since passed, resolution of pain, hematuria and creat return to normal-ucx neg, follow up as an outpatient with [facility] within 2 weeks of discharge. Acute anemia, unclear etiology, ? related to lesion- cscope this evening, hgb up trending further diagnoses and treatment as documented by resident
[2018-04-21] MEDS: OXYCODONE Oral CONC 10 MG/0.5 ML ORAL.SYG SL PRN ×3 (12:43→23:40)
[2018-04-21] MEDS ORDERED: *HR* Midazolam HCl 5 MG/5 ML VIAL IVP ONE ×2 (17:24→17:42)
[2018-04-21] MEDS ORDERED: *HR* FentaNYL (PF) 100 MCG/2 ML VIAL ONE (17:25)
[2018-04-21] MEDS ORDERED: *HR* FentaNYL (PF) 100 MCG/2 ML VIAL IVP ONE (17:42)
--- NOTE | 2018-04-21 17:42 | Pre-Sedation Evaluation ---
Pre-sedation evaluation - Pre-sedation checklist Date of procedure: 04/20/18 Procedure: colonoscopy Recent Vitals: Last Vital Signs Temp 98 F 04/21/18 17:14 Pulse 53 04/21/18 17:40 Resp 18 04/21/18 17:40 BP 135/76 04/21/18 17:40 Pulse Ox 94 04/21/18 17:40 H&P (including ROS) documented in medical record: Yes Previous reaction to sedatives/anesthetics: No Dietary Status: NPO after Midnight Dentition: No loose teeth or bridges ASA Classification *see protocol: CLASS III-Severe systemic disease Plan of Care: Pt appropriate candidate for procedure/moderate/conscious sedation, Risks/benefits of procedure/sedation discussed w/ patient/family
[2018-04-21] MEDS ORDERED: 0.9 % Sodium Chloride 500 ML IVC SCH (17:45)
--- NOTE | 2018-04-21 19:27 | General Surgery Progress Note ---
Date of Encounter: 04/21/18 Time of Encounter: 19:25 - Assessment and Plan (1) Ulcerative rectosigmoiditis with abscess Current Visit: Yes Status: Acute 52M with inflammation of distal rectum with concern for possible 15mm abscess (inc 3mm in size); currently afebrile, ammonia still operator on rectal exam; POD #1 s/p REUA with biopsy of anal lesion, now s/p attempted colonoscopy with biopsy of anal lesion; diet as tolerated okay for d/c from surgical perspective with plans to follow up in my clinic in 2 weeks; discussed in detail with the patient about the next steps; patient expressed understanding general surgery will sign off Subjective Patient reports: no new complaints Objective Vital Signs - Last 8 Hours Temp Pulse Resp BP Pulse Ox 04/21/18 19:21 97.4 F L 54 15 125/73 95 04/21/18 18:35 97.6 F 67 18 120/76 95 04/21/18 18:10 58 18 122/64 97 04/21/18 18:05 54 18 118/67 96 04/21/18 18:00 52 18 133/74 96 04/21/18 17:55 51 18 131/75 97 04/21/18 17:50 48 18 152/79 96 04/21/18 17:45 60 18 132/71 95 04/21/18 17:40 53 18 135/76 94 04/21/18 17:35 53 18 135/76 94 04/21/18 17:14 98 F 56 20 125/65 94 04/21/18 12:35 98 F 56 20 127/67 91 Intake and Output 04/21/18 04/21/18 04/21/18 07:59 15:59 23:59 Intake Total 1300 / 1300 100 / 100 300 / 300 Output Total 850 / 850 Balance 450 / 450 100 / 100 300 / 300 Intake: IV Fluids 1300 / 1300 100 / 100 300 / 300 0.9 % Sodium Chloride 500 ML @ 300 / 300 50 mls/hr IVC .Q10H [facility] Rx#: [id number] Lactated Ringers 1,000 ML @ 125 1000 / 1000 0 / 0 mls/hr IVC .Q8H [facility] Rx#: [id number] Cipro Premix 400 MG/200 ML 400 200 / 200 mg In 200 ml @ 200 mls/hr IVPB Q12HR [facility] Rx#:[id number] Flagyl Premix 500 MG/100 ML 500 100 / 100 100 / 100 mg In 100 ml @ 100 mls/hr IVPB Q8HR [facility] Rx#:[id number] Output: Urine 850 / 850 - General physical appearance no distress - Respiratory normal expansion, normal respiratory effort - Cardiovascular Cardiovascular exam: Present: RRR - Integumentary no rash - Neurologic CN 2-12 grossly intact - Musculoskeletal normal posture - Labs 04/21/18 05:45 04/21/18 04:42 Diabetes panel 04/21/18 Range/Units 04:42 Sodium 139 (136-145) mEq/L Potassium 3.7 (3.5-5.1) mEq/L Chloride 105 (98-107) mEq/L Carbon Dioxide 23 (23-29) mEq/L BUN 10 (6-20) mg/dL Creatinine 0.83 (0.70-1.30) mg/dL Glucose 227 H (70-105) mg/dL Calcium 9.0 (8.6-10.3) mg/dL Calcium panel 04/21/18 Range/Units 04:42 Calcium 9.0 (8.6-10.3) mg/dL Pituitary panel 04/21/18 Range/Units 04:42 Sodium 139 (136-145) mEq/L Potassium 3.7 (3.5-5.1) mEq/L Chloride 105 (98-107) mEq/L Carbon Dioxide 23 (23-29) mEq/L BUN 10 (6-20) mg/dL Creatinine 0.83 (0.70-1.30) mg/dL Glucose 227 H (70-105) mg/dL Calcium 9.0 (8.6-10.3) mg/dL Adrenal panel 04/21/18 Range/Units 04:42 Sodium 139 (136-145) mEq/L Potassium 3.7 (3.5-5.1) mEq/L Chloride 105 (98-107) mEq/L Carbon Dioxide 23 (23-29) mEq/L BUN 10 (6-20) mg/dL Creatinine 0.83 (0.70-1.30) mg/dL Glucose 227 H (70-105) mg/dL Calcium 9.0 (8.6-10.3) mg/dL Consult Discharge Plan - Plan Referrals: NONE,PCP [Primary Care Provider] -
[2018-04-22] MEDS: Ringers Solution, Lactated 1,000 ML IVC SCH ×2 (01:35→09:43)
[2018-04-22] MEDS: OXYCODONE Oral CONC 10 MG/0.5 ML ORAL.SYG SL PRN ×2 (05:28→09:43)
[2018-04-22] MEDS: *HR* Heparin 5,000 UNIT/ML VIAL SQ SCH (05:28)
[2018-04-22 05:54] LABS: Basophils % 0.3 %; Eosinophils # 0.1 K/mcL (0.0-0.6); Eosinophils % 0.6 %; Hematocrit 29.7 % (37.5-50.1); Immature Granulocytes % 0.3 % (0-4); Lymphocytes # 2.6 K/mcL (0.6-4.6); Lymphocytes % 26.3 %; Mean Corpuscular HGB Conc 33.7 g/dL (31.6-35.5); Mean Corpuscular Hemoglobin 28.7 pg (28.0-33.3); Mean Corpuscular Volume 85.3 fL (83.0-100.0); Mean Platelet Volume 10.5 fL (9.4-12.4); Monocytes # 0.7 K/mcL (0.0-1.3); Monocytes % 7.4 %; Neutrophils # 6.5 K/mcL (1.6-8.9); Platelet Count 249 K/mcL (140-400); Red Blood Count 3.48 M/mcL (4.19-5.50); Red Cell Distribution Width 13.3 % (11.5-14.5); Segmented Neutrophils % 65.1 %
[2018-04-22] MEDS: MetroNIDAZOLE 500 MG/100 ML 500 MG/100 ML BAG IVPB SCH (09:41)
[2018-04-22 11:42] VITALS: BP 124/73
--- NOTE | 2018-04-22 12:33 | Discharge Summary ---
<Lou Sibley - Last Filed: 04/22/18 12:30> - NOTES TO OUTPATIENT PROVIDER Notes to Outpatient Provider: -Rectal exam under anesthesia demonstrated a rectal lesion as concerning for malignancy. Biopsy was taken. The patient is to follow up with general surgery in 2 weeks. -Colonoscopy demonstrated 5 mm polyp in the sigmoid colon and removed. Anal mass was found on perianal exam. -Abdominal CT demonstrated a perirectal abscess and the patient was treated with ciprofloxacin and Flagyl. And discharged with 2 more days of both antibiotics to complete treatment. -Abdominal CT also has demonstrated a 6 mm distal right ureteral calculus. The patient was placed on fluids and Flomax and believed to passed the stone. He is to follow up with urology within 2 weeks of discharge. -He was discharged with a week of oxycodone for rectal pain Orders not resulted at time of discharge: Pending orders 04/20/18 17:06 Surgical Pathology [PTH] Routine 04/21/18 18:14 Surgical Pathology [PTH] Routine Date of Encounter: 04/22/18 Time of Encounter: 12:30 - Discharge Diagnosis (1) Perirectal abscess Priority: Primary Status: Acute (2) Hydronephrosis with obstructing calculus Priority: Secondary Status: Acute (3) Tobacco abuse Priority: Secondary Status: Chronic (4) Acute kidney injury Priority: Secondary Status: Acute (5) Lesion of rectum Priority: Secondary Status: Acute Hospital course: Mr. Moscoso is a 52 year old male with no prior past medical history who presented to the ED complaining of rectal pain. He was seen in the ER a few weeks prior with rectal pain was placed on Flagyl prednisone however he not feel that it helped by continued to worsen. He started notice blood in his bowel movements. Additionally he was having right CVA tenderness and suprapubic tenderness. He denied fever, chills, chest pain, shortness of breath, trauma. CT showed perirectal abscess as well as 6mm obstructing R kidney stone at [facility]. General surgery was consulted and recommended the patient be placed on antibiotics which were ciprofloxacin and Flagyl. Urology was consulted about the right kidney stone and they believe that the patient would be a pass it without intervention. He was given IV fluids and Flomax. Patient did have i mprovement in urination and was no longer having difficulty urinating. The right CVA tenderness and suprapubic tenderness resolved. He continue to have rectal pain so surgery took him to the OR for a rectal exam under anesthesia for which a rectal lesion was found concerning for malignancy. The biopsy was sent for pathology. The patient underwent a colonoscopy which demonstrated 5 mm polyp in the sigmoid colon which was removed. Anal mass was found on perianal exam. Upon discharge the patient was afebrile, white blood cell count within normal limits. He denied fever, chills, chest pain, shortness of breath, abdominal pain, melena. He did have rectal tenderness still. He was instructed to finish it taking his antibiotics as prescribed. He is to follow up with Dr. Jo of general surgery in 2 weeks for further management of the new rectal lesion that is most likely malignant. He was given a prescription for a weeks worth of pain medication for which if he needed more he would need to follow up with his PCP for more. He does not have the PCP so he was set up to establish with the residency clinic. He was also reminded to follow-up with Dr. Maza of urology within 2 weeks about his right kidney stone that he passed and the hydronephrosis. The patient stated a clear understanding of the treatment plan. His sons were at that bedside. Discharge discussed with: patient, nurse Time spent discussing smoking cessation with patient: more than 10 minutes - Time Spent with Patient Total time spent providing and/or coordinating discharge services: Greater than 30 minutes - Discharge Medications Prescriptions: OxyCODONE/APAP 5/325 [Percocet 5/325 MG] 1 each PO Q4HR PRN 7 Days #28 tablet PRN Reason: Severe Pain Ciprofloxacin HCl [Cipro] 500 mg PO BID #4 tablet metroNIDAZOLE [Flagyl] 500 mg PO TID #6 tablet Home Medications: Ciprofloxacin HCl [Cipro] 500 mg PO BID #4 tablet 04/22/18 [Rx] OxyCODONE/APAP 5/325 [Percocet 5/325 MG] 1 each PO Q4HR PRN 7 Days #28 tablet 04/22/18 [Rx] metroNIDAZOLE [Flagyl] 500 mg PO TID #6 tablet 04/22/18 [Rx] Allergies/Adverse Reactions: Allergy/AdvReac Type Severity Reaction Status Date / Time No Known Allergies Allergy Verified 04/16/18 15:15 Date of admission: 04/17/18 13:39 Primary care physician: PCP NONE Consults: 04/16/18 15:11 Consult to Urology [CONS] Stat Consulting Provider: Urology Klaudia Reason for Consult: Obstructing R kidney stone Time Notified: 15:05 Call Completed: Yes 04/17/18 08:31 Consult to Surgery [CONS] Routine Consulting Provider: Tank Salas Reason for Consult: perirectal abscess - I was told that ED called last night but they never put the consult in the chart. Call Completed: Yes 04/17/18 10:51 Consult to [employer] [CONS] Routine Reason for SW Consult: HOMELESS Discharging clinician: Rosa Thomas Anticipated date of discharge: 04/22/18 - Constitutional Vitals: Temp Pulse Resp BP Pulse Ox 97.6 F 54 18 124/73 93 04/22/18 11:38 04/22/18 11:38 04/22/18 11:38 04/22/18 11:38 04/22/18 11:38 General appearance: Present: A&O X 3, answers questions appropriately Exam: Gen.: Vitals noted. No acute distress. AAOx3 HEENT: oropharynx clear, Normocephalic, atraumatic Cardiac: RRR, no murmur, +S1/S2 Pulmonary: CTA bilaterally, no wheezes, rales or rhonchi, equal chest expansion Abdomen: soft, nontender, Bowel sounds noted, no guarding MSK: ROM intact, no joint swelling noted Extremities: no BLE edema, nontender calf, no cyanosis or clubbing Neuro: A&Ox3, moves all extremities, no focal deficits Psych: Appropriate mood and behavior - Patient Status Disposition: Home, Self-Care Condition: Good Functional capacity at discharge: independent ambulation Overall status at discharge: patient is back to baseline - Ambulatory Orders Ambulatory Orders: Complete Blood Count [HEME] Time Frame: 1 Week, Facility: [facility], Location: Lab - Discharge Instructions Follow Up With: [facility] [Outside] (WEB REQUEST SENT, DUE TO Pt NOT HAVING A PCP) Tank Salas MD [Non-Partnered Physician] - (PLEASE FOLLOW UP IN 1-2WEEKS. THANK YOU!) Cachorro Maza MD [Partnered Physician] - (PLEASE FOLLOW UP IN 2 WEEKS) Additional Instructions: Finish antibiotics to completion Follow-up with Dr. Jo the general surgeon in 2 weeks about the rectal mass that is concerning for malignancy. Follow-up with the urologist Dr. Maza within 2 weeks for your kidney stone and hydronephrosis. Follow-up with your PCP Return to the hospital should you develop large rectal bleeding. - Diet and Activity Activity: resume usual activities as tolerated Diet: advance to your usual diet <Rosa Thomas - Last Filed: 04/22/18 14:02> Orders not resulted at time of discharge: Pending orders 04/20/18 17:06 Surgical Pathology [PTH] Routine 04/21/18 18:14 Surgical Pathology [PTH] Routine Date of Encounter: 04/22/18 - Discharge Diagnosis (1) Perirectal abscess Status: Acute (2) Hydronephrosis with obstructing calculus Status: Acute (3) Tobacco abuse Status: Chronic (4) Acute kidney injury Status: Acute (5) Lesion of rectum Status: Acute Hospital course: Mr. Moscoso is a 52 year old male - Time Spent with Patient Total time spent providing and/or coordinating discharge services: Date of admission: 04/17/18 13:39 Primary care physician: PCP NONE Consults: 04/16/18 15:11 Consult to Urology [CONS] Stat Consulting Provider: Urology Klaudia Reason for Consult: Obstructing R kidney stone Time Notified: 15:05 Call Completed: Yes 04/17/18 08:31 Consult to Surgery [CONS] Routine Consulting Provider: Tank Salas Reason for Consult: perirectal abscess - I was told that ED called last night but they never put the consult in the chart. Call Completed: Yes 04/17/18 10:51 Consult to [employer] [CONS] Routine Reason for SW Consult: HOMELESS - Constitutional Vitals: Temp Pulse Resp BP Pulse Ox 97.6 F 54 18 124/73 93 04/22/18 11:38 04/22/18 11:38 04/22/18 11:38 04/22/18 11:38 04/22/18 11:38 - Attending Attestation I examined this patient and my medical decision-making was reviewed with the Resident Physician Dr Sibley. I agree with the documented findings, disposition and treatment plan as described except to the extent set forth below. Mr Moscoso is currently admitted for perirectal abscess and kidney stone. Found to have rectal lesion concerning for malignancy awake, pleasant, happy to dc today. cont rectal pain, no drainage. no fevers, chills. urinating without hesitancy, hematuria/cltos. no flank pain/supra pbuic pain. discussed hgb varying throughout admit but anemia present and possibly from rectal findings. will need pcp and outpt fu and repeat cbc outpt which he understands. gen- alert, awake,appears stated age cv- reg rate and rhythm, normal s1,s2, no murmurs appreciated lungs- ctabl, no wheezing, rhonchi or crackles neuro- AAOx3 Perirectal abscess found on rectal exam under anesthesia to be lesion concerning for malignancy, s/p colonsocpy- he will fu with Dr Jo outpt for bx results, we will have him complete abx course as well, short term prn pain rx on dc Kidney stone, suspect since passed, resolution of pain/ hematuria and creat return to normal-ucx neg, follow up as an outpatient with [facility] within 2 weeks of discharge. Acute anemia, suspect related to lesion- cscope complete, outpt cbc fu, asx further diagnoses and treatment as documented by resident Addendum entered and electronically signed by Lou Sibley DO 04/22/18 13:07: The patient is also instructed to get a repeat CBC in a week to recheck his hemoglobin since it only minimally decreased. He is hemodynamically stable.
[2018-04-22] MEDS: *HR* OxyCODONE Immed Rel 5 MG TABLET PO PRN (13:20)
== END 2018-04-22 14:23 | disposition home or self-care (01) | DRG 240 ==
LOC: 3BNU 11:30 → EMEROOARM 11:30 → SUATTDRO 15:32 → 3BNU 16:45 → SUATTDRO 04-17 13:39 → 2ANU 04-19 08:47
PROVIDERS: ADMIT Internal Medicine; ATTEND Internal Medicine

== ENCOUNTER 2018-12-03 18:28 | Inpatient (IN) ==
[2018-12-03] MEDS ORDERED: Isovue-370 500 ML BOTTLE IVP ONE (19:11)
[2018-12-03] MEDS ORDERED: Ondansetron 4 MG/2 ML VIAL IVP ONE (19:12)
[2018-12-03] MEDS ORDERED: 0.9 % Sodium Chloride 1,000 ML IVC ONE ×2 (19:12→22:50)
--- NOTE | 2018-12-03 19:14 | Emergency Department Note ---
Disposition Clinical Impression: Colitis Disposition: Admitted As Inpatient Condition: Good Time of Disposition: 22:54 General Adult HPI - General Chief complaint: ED Abdominal Pain Stated complaint: abd pain Time Seen by Provider: 12/03/18 19:07 Nursing Notes Reviewed: Yes Vital Signs Reviewed: Yes - History of Present Illness HPI Narrative: 53-year-old male presents emergency department with concern for abdominal pain. Patient states that he has history of rectal cancer. Patient states that he is also some liquid stool as well. Patient denies any nausea, vomiting. He states that the pain is intermittent, but sharp at times. It does not radiate any where. Pain Scale: 10 - Related Data Home Medications Medication Instructions Recorded Confirmed Polyethylene Glycol 3350 [MiraLAX] 17 gm PO DAILY 07/27/18 12/03/18 OxyCODONE ER (12 HR) [OxyCONTIN] 10 mg PO Q12HR 12/01/18 12/03/18 OxyCODONE Immed Rel [Roxicodone 5 5 mg PO Q6HR PRN 12/01/18 12/03/18 MG] Previous Rx's Medication Instructions Recorded Lactose-Reduced Food [Boost High 237 ml PO BID #60 liquid 10/03/18 Protein] Ondansetron ODT [Zofran ODT] 4 mg SL Q4HR PRN #30 tab.rapdis 10/03/18 Ondansetron HCl [Zofran] 4 mg PO Q6HR PRN #30 tablet 11/03/18 Zolpidem [Ambien] 5 mg PO HS PRN 30 Days #30 tablet 11/17/18 Allergies Allergy/AdvReac Type Severity Reaction Status Date / Time No Known Allergies Allergy Verified 12/03/18 19:20 All systems ED: reviewed and negative except as stated. Review of Systems: As Per HPI Constitutional: Denies: fever Cardiovascular: Denies: chest pain Respiratory: Denies: dyspnea Gastrointestinal: Reports: abdominal pain, diarrhea. Denies: nausea, vomiting Genitourinary: Denies: urgency, dysuria, frequency Musculoskeletal: Denies: back pain Past Medical History - Past Medical History Attestation: Yes The following information was validated with the patient. Medical history: Reports: cancer, other Surgical history: Reports: colostomy, other Psychiatric history: Reports: no psych history - Social History Smoking Status: Current every day smoker Smokeless Tobacco Status: No Alcohol use: Reports: none Drug use: Reports: none Physical Exam - General Limitations: no limitations General appearance: alert, in no apparent distress - Head Head exam: normocephalic - Eye Eye exam: Present: EOMI. Absent: scleral icterus - ENT ENT exam: mucous membranes moist - Neck Neck exam: Present: trachea midline - Chest Chest inspection: Present: symmetric chest wall rise - Respiratory Respiratory exam: Present: normal lung sounds bilaterally. Absent: respiratory distress, accessory muscle use - Cardiovascular Cardiovascular exam: Present: normal rhythm, tachycardia, normal heart sounds - Abdominal Exam Abdominal exam: Present: soft, tenderness, other (Colostomy bag present. Intact). Absent: distention, guarding, rigidity Abdominal tenderness: Present: epigastrium, moderate - Extremities Exam Extremities exam: Present: normal capillary refill - Back Exam Back exam: Present: full ROM - Neurological Exam Neurological exam: Present: alert, oriented X3 - Psychiatric Psychiatric exam: Present: normal affect, normal mood - Skin Skin exam: Present: warm, dry, intact, normal color. Absent: rash Course Vital Signs Temperature 97.8 F 12/03/18 18:29 Pulse Rate 103 12/03/18 18:29 Respiratory Rate 18 12/03/18 18:29 Blood Pressure 106/65 12/03/18 18:29 O2 Sat by Pulse Oximetry 97 12/03/18 18:29 Temperature 98.9 F 12/04/18 04:12 Pulse Rate 92 12/04/18 04:12 Respiratory Rate 16 12/04/18 04:12 Blood Pressure 100/54 12/04/18 04:12 O2 Sat by Pulse Oximetry 94 12/04/18 04:12 Oxygen Delivery Oxygen Delivery Room Air Medical Decision Making - [facility] Narrative Medical decision making narrative: 51-year-old male presents emergency department with concern for abdominal pain. He does have history of rectal cancer and previous known history of having perirectal abscesses. Patient he medically stable and appears not applicable physical exam. Obtain CT scan abdomen and pelvis. CT scan of abdomen and pelvis reveals possible perianal abscess that is much smaller than prior exam. Also evidence of descending colitis. Patient did have leukocytosis of 19,000. I spoke with our acute care surgeon solution design and analysis manager, Dr. Dailey. She stated that she was well aware of the patient and that patient's perianal abscess was felt to be more of sterile urine. I examined the area, and patient has no area of erythema around the rectum, with the gluteal folds closed. No drainage from the area either. Patient given Zosyn and flagyl in the emergency department. Awaiting GI infe ction panel at time of admission. Patient hemodynamically stable and admitted to the acute care surgery. Abdomen/Pelvis CT 12/03/18 19:11 IMPRESSION: 1. Perianal abscess much smaller than on prior exam 11/06/2018. 2. Persistent but overall decreased inflammatory changes in the pelvis including markedly thick-walled enhancing urinary bladder. 3. Interval development of findings of acute colitis descending colon. This may be on an infectious, inflammatory or reactive basis. 4. Moderate volume fecal debris may reflect constipation. 5. Left upper quadrant colostomy. 6. Possible cholelithiasis versus gallbladder stand. D/ / Benoit Carrera / Benoit Carrera Interpreting Provider: Benoit Carrera - Lab Data Result diagrams: 12/03/18 19:44 12/03/18 19:44 Lab Results 12/03/18 12/03/18 12/03/18 Range/Units 19:44 19:44 19:44 WBC 19.3 H (4.3-11.1) K/mcL RBC 4.66 (4.19-5.50) M/mcL Hgb 12.5 L (12.9-16.9) g/dL Hct 39.9 (37.5-50.1) % MCV 85.6 (83.0-100.0) fL MCH 26.8 L (28.0-33.3) pg MCHC 31.3 L (31.6-35.5) g/dL RDW 19.6 H (11.5-14.5) % Plt Count 323 (140-400) K/mcL MPV 8.5 L (9.4-12.4) fL Immature Gran % 0.4 (0-4) % Seg Neutrophils % 91.6 % Lymphocytes % 2.5 % Monocytes % 5.1 % Eosinophils % 0.1 % Basophils % 0.3 % Neutrophils # 17.7 H (1.6-8.9) K/mcL Lymphocytes # 0.5 L (0.6-4.6) K/mcL Monocytes # 1.0 (0.0-1.3) K/mcL Eosinophils # 0.0 (0.0-0.6) K/mcL Basophils # 0.1 (0.0-0.2) K/mcL Sodium 135 L (136-145) mEq/L Potassium 3.7 (3.5-5.1) mEq/L Chloride 100 (98-107) mEq/L Carbon Dioxide 26 (23-29) mEq/L BUN 12 (6-20) mg/dL Creatinine 0.94 (0.70-1.30) mg/dL Est GFR ( Amer) > 60 (> 60) Est GFR (Non-Af Amer) > 60 (> 60) BUN/Creatinine Ratio 13 (6-26) Glucose 145 H (70-105) mg/dL Calculated Osmolality 282 (280-300) Lactic Acid 1.5 (0.5-2.2) mmol/L Calcium 9.9 (8.6-10.3) mg/dL Total Bilirubin 0.5 (0.3-1.0) mg/dL AST 9 L (13-39) Units/L ALT 6 L (7-52) Units/L Alkaline Phosphatase 79 (34-104) Units/L Serum Total Protein 7.7 (6.4-8.9) g/dL Albumin 4.3 (3.5-5.7) g/dL Globulin 3.4 (2.4-3.5) g/dL Albumin/Globulin Ratio 1.3 (1.1-2.2) Lipase 5 L (11-82) Units/L
[2018-12-03] MEDS ORDERED: Morphine Sulfate 2 MG/ML SYRINGE IVP ONE (19:30)
[2018-12-03 19:59] LABS: Basophils # 0.1 K/mcL (0.0-0.2); Basophils % 0.3 %; Eosinophils % 0.1 %; Hematocrit 39.9 % (37.5-50.1); Hemoglobin 12.5 g/dL (12.9-16.9); Immature Granulocytes % 0.4 % (0-4); Lymphocytes # 0.5 K/mcL (0.6-4.6); Lymphocytes % 2.5 %; Mean Corpuscular HGB Conc 31.3 g/dL (31.6-35.5); Mean Corpuscular Hemoglobin 26.8 pg (28.0-33.3); Mean Corpuscular Volume 85.6 fL (83.0-100.0); Mean Platelet Volume 8.5 fL (9.4-12.4); Monocytes % 5.1 %; Neutrophils # 17.7 K/mcL (1.6-8.9); Platelet Count 323 K/mcL (140-400); Red Blood Count 4.66 M/mcL (4.19-5.50); Red Cell Distribution Width 19.6 % (11.5-14.5); Segmented Neutrophils % 91.6 %; White Blood Count 19.3 K/mcL (4.3-11.1)
[2018-12-03 20:22] LABS: Alanine Aminotransferase 6 Units/L (7-52); Albumin 4.3 g/dL (3.5-5.7); Albumin/Globulin Ratio 1.3 (1.1-2.2); Alkaline Phosphatase 79 Units/L (34-104); Aspartate Amino Transferase 9 Units/L (13-39); BUN/Creatinine Ratio 13 (6-26); Bilirubin,Total 0.5 mg/dL (0.3-1.0); Blood Urea Nitrogen 12 mg/dL (6-20); Calcium 9.9 mg/dL (8.6-10.3); Carbon Dioxide 26 mEq/L (23-29); Chloride 100 mEq/L (98-107); Globulin 3.4 g/dL (2.4-3.5); Glucose 145 mg/dL (70-105); Lipase 5 Units/L (11-82); Osmolality,Calculated 282 (280-300); Potassium 3.7 mEq/L (3.5-5.1); Sodium 135 mEq/L (136-145); Total Protein 7.7 g/dL (6.4-8.9); eGFR For African Americans > 60 (> 60); eGFR For Non-African Americans > 60 (> 60)
[2018-12-03] MEDS ORDERED: MetroNIDAZOLE 500 MG/100 ML 500 MG/100 ML BAG IVPB ONE (22:22)
[2018-12-03] MEDS ORDERED: Piperacillin/Tazobactam 3.375 GM in Water for inj. (sterile) 20 ML IVP ONE (22:52)
--- NOTE | 2018-12-03 23:27 | Emergency Department Note ---
Disposition Clinical Impression: Colitis Disposition: Admitted As Inpatient Condition: Good Time of Disposition: 22:54 General Adult HPI - General Chief complaint: ED Abdominal Pain Stated complaint: abd pain Time Seen by Provider: 12/03/18 19:07 Source: patient Limitations: no limitations - History of Present Illness Pain Scale: 10 - Related Data Home Medications Medication Instructions Recorded Confirmed Polyethylene Glycol 3350 [MiraLAX] 17 gm PO DAILY 07/27/18 12/03/18 OxyCODONE ER (12 HR) [OxyCONTIN] 10 mg PO Q12HR 12/01/18 12/03/18 OxyCODONE Immed Rel [Roxicodone 5 5 mg PO Q6HR PRN 12/01/18 12/03/18 MG] Capecitabine [Xeloda] 1,000 mg PO QPM 12/04/18 12/04/18 Capecitabine [Xeloda] 1,500 mg PO QAM 12/04/18 12/04/18 Previous Rx's Medication Instructions Recorded Ondansetron ODT [Zofran ODT] 4 mg SL Q4HR PRN #30 tab.rapdis 10/03/18 Ondansetron HCl [Zofran] 4 mg PO Q6HR PRN #30 tablet 11/03/18 Zolpidem [Ambien] 5 mg PO HS PRN 30 Days #30 tablet 11/17/18 Allergies Allergy/AdvReac Type Severity Reaction Status Date / Time No Known Allergies Allergy Verified 12/04/18 16:41 Constitutional: Denies: fever Cardiovascular: Denies: chest pain Respiratory: Denies: dyspnea Gastrointestinal: Reports: abdominal pain, diarrhea. Denies: nausea, vomiting Genitourinary: Denies: urgency, dysuria, frequency Musculoskeletal: Denies: back pain Past Medical History - Past Medical History Medical history: Reports: cancer, other Surgical history: Reports: colostomy, other Psychiatric history: Reports: no psych history - Social History Smoking Status: Current every day smoker Smokeless Tobacco Status: No Alcohol use: Reports: none Drug use: Reports: none Physical Exam - General Limitations: no limitations General appearance: alert, in no apparent distress Course Vital Signs Temperature 97.8 F 12/03/18 18:29 Pulse Rate 103 12/03/18 18:29 Respiratory Rate 18 12/03/18 18:29 Blood Pressure 106/65 12/03/18 18:29 O2 Sat by Pulse Oximetry 97 12/03/18 18:29 Temperature 99.0 F 12/04/18 23:49 Pulse Rate 114 12/04/18 23:49 Respiratory Rate 18 12/04/18 23:49 Blood Pressure 101/62 12/04/18 23:49 O2 Sat by Pulse Oximetry 94 12/04/18 23:49 Oxygen Delivery Oxygen Delivery Room Air Medical Decision Making - Lab Data Result diagrams: 12/03/18 19:44 12/03/18 19:44 Lab Results 12/03/18 12/03/18 12/03/18 Range/Units 19:44 19:44 19:44 WBC 19.3 H (4.3-11.1) K/mcL RBC 4.66 (4.19-5.50) M/mcL Hgb 12.5 L (12.9-16.9) g/dL Hct 39.9 (37.5-50.1) % MCV 85.6 (83.0-100.0) fL MCH 26.8 L (28.0-33.3) pg MCHC 31.3 L (31.6-35.5) g/dL RDW 19.6 H (11.5-14.5) % Plt Count 323 (140-400) K/mcL MPV 8.5 L (9.4-12.4) fL Immature Gran % 0.4 (0-4) % Seg Neutrophils % 91.6 % Lymphocytes % 2.5 % Monocytes % 5.1 % Eosinophils % 0.1 % Basophils % 0.3 % Neutrophils # 17.7 H (1.6-8.9) K/mcL Lymphocytes # 0.5 L (0.6-4.6) K/mcL Monocytes # 1.0 (0.0-1.3) K/mcL Eosinophils # 0.0 (0.0-0.6) K/mcL Basophils # 0.1 (0.0-0.2) K/mcL Sodium 135 L (136-145) mEq/L Potassium 3.7 (3.5-5.1) mEq/L Chloride 100 (98-107) mEq/L Carbon Dioxide 26 (23-29) mEq/L BUN 12 (6-20) mg/dL Creatinine 0.94 (0.70-1.30) mg/dL Est GFR ( Amer) > 60 (> 60) Est GFR (Non-Af Amer) > 60 (> 60) BUN/Creatinine Ratio 13 (6-26) Glucose 145 H (70-105) mg/dL Calculated Osmolality 282 (280-300) Lactic Acid 1.5 (0.5-2.2) mmol/L Calcium 9.9 (8.6-10.3) mg/dL Total Bilirubin 0.5 (0.3-1.0) mg/dL AST 9 L (13-39) Units/L ALT 6 L (7-52) Units/L Alkaline Phosphatase 79 (34-104) Units/L Serum Total Protein 7.7 (6.4-8.9) g/dL Albumin 4.3 (3.5-5.7) g/dL Globulin 3.4 (2.4-3.5) g/dL Albumin/Globulin Ratio 1.3 (1.1-2.2) Lipase 5 L (11-82) Units/L Attestation Statement - Attestation Attestation: I examined this patient and my medical decision-making was reviewed with the Resident Physician. I agree with the documented findings, disposition and treatment plan as described except to the extent set forth below. Patient at 3-year-old gentleman who presents to emergency department with chief complaint of abdominal pain. The patient reports he has a diverting colostomy also has history of a prior abscess and is a diverticulosis before in the past. Patient states that he has diffuse abdominal pain states this is different than his usual episodes. Exam patient awake alert no acute distress abdomen is mildly tender to palpation throughout the abdomen no guarding or rebound noted on exam. Medical decision management additional laboratory studies White blood cell count. CT scan of the abdomen and pelvis showed no new abscess but did show the evidence was colitis diffusely on the bowel. The patient will be admitted to the surgical service for further management.
[2018-12-04] MEDS ORDERED: 0.9 % Sodium Chloride 1,000 ML IVC SCH (01:00)
[2018-12-04] MEDS: 0.9 % Sodium Chloride 1,000 ML IVC SCH ×3 (01:25→18:21)
[2018-12-04 05:08] LABS: Bilirubin,Urine Negative (Negative); Blood,Urine Trace (Negative); Clarity,Urine Clear (Clear); Color,Urine Yellow (Yellow); Glucose,Urine (UA) Normal (Normal); Ketones,Urine Negative (Negative); Leukocyte Esterase,Urine Moderate (Negative); Nitrite,Urine Positive (Negative); Protein,Urine Trace mg/dL (Neg-Trace); Specific Gravity,Urine > 1.030 (1.010-1.025); Urobilinogen,Urine Normal (Normal)
[2018-12-04 05:10] LABS: Bacteria,Urine Moderate per hpf (None-Few); Hyaline Casts,Urine None Seen per lpf (None-Few); Squamous Epithelial Cell,Urine None Seen per lpf (None-Few); WBC,Urine 50-100 per hpf (0-3)
[2018-12-04] MEDS: *HR* OxyCODONE ER (12 HR) 10 MG TABLET PO SCH ×2 (05:48→17:47)
--- NOTE | 2018-12-04 14:43 | General Surg History&Physical ---
Date of Encounter: 12/04/18 Time of Encounter: 14:41 Assessment and Plan (1) Rectal cancer Current Visit: No Status: Acute The assessment and plan as outlined above was discussed with the patient and/or family members who expressed understanding and agreement. All questions were answered. (2) Colitis Current Visit: Yes Status: Acute Will check a c diff. He will need fecal evacuation. NPO and continue antibiotics. The assessment and plan as outlined above was discussed with the p atient and/or family members who expressed understanding and agreement. All questions were answered. History of Present Illness HPI: Mr. Moscoso is a 53 year old male with a recent APR and urethral injury. He currently has a peñaloza catheter. He presented to the ER last night with increasing abdominal pain for 2 days. The pain is located in the pelvis and lower colic gutters. Past Med Surg Social Fam HX - Past Medical History Medical history: cancer, other Additional medical history: neck pain. headaches. rectal cancer. smoking Psychiatric history: no psych history - Past Surgical History Surgical History: colostomy, other Additional surgical history: colostomy placed d/t colon resection - Social History Smoking Status: Current every day smoker Packs per day: 1 Smokeless Tobacco Status: No Alcohol use: none Drug use: none - Family History Mother Adopted: Yes Medications and Allergies Polyethylene Glycol 3350 [MiraLAX] 17 gm PO DAILY 07/27/18 [History] Lactose-Reduced Food [Boost High Protein] 237 ml PO BID #60 liquid 10/03/18 [Rx] Ondansetron ODT [Zofran ODT] 4 mg SL Q4HR PRN #30 tab.rapdis 10/03/18 [Rx] Ondansetron HCl [Zofran] 4 mg PO Q6HR PRN #30 tablet 11/03/18 [Rx] Zolpidem [Ambien] 5 mg PO HS PRN 30 Days #30 tablet 11/17/18 [Rx] OxyCODONE ER (12 HR) [OxyCONTIN] 10 mg PO Q12HR 12/01/18 [History] OxyCODONE Immed Rel [Roxicodone 5 MG] 5 mg PO Q6HR PRN 12/01/18 [History] Capecitabine [Xeloda] 500 mg PO BID 12/04/18 [History] Allergy/AdvReac Type Severity Reaction Status Date / Time No Known Allergies Allergy Verified 12/03/18 19:20 Review of Systems All systems PM: reviewed and no additional remarkable complaints except as state d All systems PM: The remainder of the systems were reviewed and are negative General Surgery Exam Initial Vital Signs Temp Pulse Resp BP Pulse Ox 97.8 F 103 18 106/65 97 12/03/18 18:29 12/03/18 18:29 12/03/18 18:29 12/03/18 18:29 12/03/18 18:29 - General physical appearance moderate pain - Eyes PERRL - Neck trachea midline - Respiratory normal respiratory effort - Cardiovascular Cardiovascular exam: Present: RRR - Abdomen Abdomen general surgery: Present: soft, tender Abdominal Tenderness: Present: RLQ, LLQ, suprapubic - Integumentary Integumentary general surgery: Present: no abnormal pigmentation - Neurologic Present: CN 2-12 grossly intact, normal sensation - Psychiatric Psychiatric general surgery: Present: A&Ox3 Results - Labs 12/03/18 19:44 12/03/18 19:44 Abnormal lab results WBC 19.3 K/mcL (4.3-11.1) H 12/03/18 19:44 Hgb 12.5 g/dL (12.9-16.9) L 12/03/18 19:44 MCH 26.8 pg (28.0-33.3) L 12/03/18 19:44 MCHC 31.3 g/dL (31.6-35.5) L 12/03/18 19:44 RDW 19.6 % (11.5-14.5) H 12/03/18 19:44 MPV 8.5 fL (9.4-12.4) L 12/03/18 19:44 Neutrophils # 17.7 K/mcL (1.6-8.9) H 12/03/18 19:44 Lymphocytes # 0.5 K/mcL (0.6-4.6) L 12/03/18 19:44 Sodium 135 mEq/L (136-145) L 12/03/18 19:44 Glucose 145 mg/dL (70-105) H 12/03/18 19:44 POC Glucose 140 mg/dL (70-99) H 12/04/18 05:59 AST 9 Units/L (13-39) L 12/03/18 19:44 ALT 6 Units/L (7-52) L 12/03/18 19:44 Lipase 5 Units/L (11-82) L 12/03/18 19:44 Ur Specific Jeffers > 1.030 (1.010-1.025) H 12/04/18 04:20 Urine Blood Trace (Negative) H 12/04/18 04:20 Urine Nitrite Positive (Negative) A 12/04/18 04:20 Ur Leukocyte Esterase Moderate (Negative) H 12/04/18 04:20 Urine Microscopic RBC 3-5 per hpf (0-3) H 12/04/18 04:20 Urine Microscopic WBC 50-100 per hpf (0-3) H 12/04/18 04:20 Urine Bacteria Moderate per hpf (None-Few) H 12/04/18 04:20 Ur Culture Indicated? YES (NO) A 12/04/18 04:20 Diabetes panel 12/03/18 Range/Units 19:44 Sodium 135 L (136-145) mEq/L Potassium 3.7 (3.5-5.1) mEq/L Chloride 100 (98-107) mEq/L Carbon Dioxide 26 (23-29) mEq/L BUN 12 (6-20) mg/dL Creatinine 0.94 (0.70-1.30) mg/dL Glucose 145 H (70-105) mg/dL Calcium 9.9 (8.6-10.3) mg/dL AST 9 L (13-39) Units/L ALT 6 L (7-52) Units/L Alkaline Phosphatase 79 (34-104) Units/L Albumin 4.3 (3.5-5.7) g/dL Calcium panel 12/03/18 Range/Units 19:44 Calcium 9.9 (8.6-10.3) mg/dL Albumin 4.3 (3.5-5.7) g/dL Pituitary panel 12/03/18 Range/Units 19:44 Sodium 135 L (136-145) mEq/L Potassium 3.7 (3.5-5.1) mEq/L Chloride 100 (98-107) mEq/L Carbon Dioxide 26 (23-29) mEq/L BUN 12 (6-20) mg/dL Creatinine 0.94 (0.70-1.30) mg/dL Glucose 145 H (70-105) mg/dL Calcium 9.9 (8.6-10.3) mg/dL Adrenal panel 12/03/18 Range/Units 19:44 Sodium 135 L (136-145) mEq/L Potassium 3.7 (3.5-5.1) mEq/L Chloride 100 (98-107) mEq/L Carbon Dioxide 26 (23-29) mEq/L BUN 12 (6-20) mg/dL Creatinine 0.94 (0.70-1.30) mg/dL Glucose 145 H (70-105) mg/dL Calcium 9.9 (8.6-10.3) mg/dL Total Bilirubin 0.5 (0.3-1.0) mg/dL AST 9 L (13-39) Units/L ALT 6 L (7-52) Units/L Alkaline Phosphatase 79 (34-104) Units/L Albumin 4.3 (3.5-5.7) g/dL All other labs normal. - Imaging CT scan - abdomen: image reviewed CT scan - pelvis: image reviewed
[2018-12-04] MEDS ORDERED: Piperacillin/Tazobactam 3.375 GM in 0.9 % Sodium Chloride Mini Bag 100 ML IVPB ONE (17:45)
[2018-12-04] MEDS: MetroNIDAZOLE 500 MG/100 ML 500 MG/100 ML BAG IVPB SCH (23:42)
[2018-12-05 04:26] LABS: Basophils % 0.2 %; Hematocrit 33.5 % (37.5-50.1); Immature Granulocytes % 0.3 % (0-4); Lymphocytes # 0.4 K/mcL (0.6-4.6); Lymphocytes % 2.2 %; Mean Corpuscular HGB Conc 31.6 g/dL (31.6-35.5); Mean Corpuscular Hemoglobin 26.6 pg (28.0-33.3); Mean Corpuscular Volume 84.2 fL (83.0-100.0); Mean Platelet Volume 8.6 fL (9.4-12.4); Monocytes % 10.3 %; Neutrophils # 16.4 K/mcL (1.6-8.9); Platelet Count 267 K/mcL (140-400); Red Blood Count 3.98 M/mcL (4.19-5.50); Red Cell Distribution Width 19.5 % (11.5-14.5); White Blood Count 18.9 K/mcL (4.3-11.1)
[2018-12-05 04:30] LABS: Hemoglobin 10.6 g/dL (12.9-16.9)
[2018-12-05 04:43] LABS: BUN/Creatinine Ratio 14 (6-26); Blood Urea Nitrogen 10 mg/dL (6-20); Calcium 8.5 mg/dL (8.6-10.3); Carbon Dioxide 19 mEq/L (23-29); Chloride 104 mEq/L (98-107); Glucose 127 mg/dL (70-105); Osmolality,Calculated 279 (280-300); Potassium 3.1 mEq/L (3.5-5.1); Sodium 134 mEq/L (136-145); eGFR For African Americans > 60 (> 60); eGFR For Non-African Americans > 60 (> 60)
[2018-12-05 05:05] LABS: Platelet Estimate Normal (Normal)
[2018-12-05] MEDS: *HR* OxyCODONE ER (12 HR) 10 MG TABLET PO SCH (06:27)
[2018-12-05] MEDS: MetroNIDAZOLE 500 MG/100 ML 500 MG/100 ML BAG IVPB SCH ×2 (08:12→16:13)
[2018-12-05] MEDS: Vancomycin 500 MG, Sodium Chloride IRRigation 250 ML RC SCH ×4 (09:39→22:49)
[2018-12-05] MEDS: 0.9 % Sodium Chloride 1,000 ML IVC SCH ×2 (15:20→18:42)
[2018-12-05] MEDS ORDERED: *HR* FentaNYL (PF) 100 MCG/2 ML VIAL IVP PRN (17:14)
[2018-12-05] MEDS ORDERED: Potassium Chloride 40 MEQ, Lidocaine 1% 2 ML in D5% in Water 500 ML IVPB ONE (17:20)
[2018-12-05] MEDS: Ondansetron ODT 4 MG TAB.RAPDIS SL PRN (17:40)
--- NOTE | 2018-12-05 18:35 | AcuteCareSurgery Progress Note ---
<Jeanne Gross - Last Filed: 12/05/18 18:32> Date of Encounter: 12/05/18 Time of Encounter: 17:00 - Assessment and Plan (1) C. difficile colitis Current Visit: Yes Status: Acute IV flagyl Rectal vanc, transition to po when able to tolerate IVF Bowel rest, NPO with ice chips until symptoms improve Repeat am labs (2) Rectal cancer Current Visit: No Status: Acute consult placed to oncology for chemo reccs Surgery would prefer to hold chemo med given acute colitis (3) UTI (urinary tract infection) Current Visit: Yes Status: Acute Cipro IV Qualifiers: Urinary tract infection type: site unspecified Hematuria presence: without hematuria Qualified Code(s): N39.0 - Urinary tract infection, site not specified (4) Hypokalemia Current Visit: Yes Status: Acute 40 MEQ k IV today Recheck am Subjective Patient reports: still having pain, flatus, afebrile Narrative: Feel ill. States pain meds are not working. Reports liquid output. Objective Vital Signs - Last 8 Hours Temp Pulse Resp BP Pulse Ox 12/05/18 11:38 97.7 F 102 16 96/63 96 Intake and Output 12/05/18 12/05/18 12/05/18 07:59 15:59 23:59 Intake Total 1100 / 1200 100 / 1200 Output Total 1000 / 1000 Balance 1100 / 200 -900 / 200 Intake: IV Fluids 1100 / 1200 100 / 1200 0.9 % Sodium Chloride 1,000 ML 1000 / 1000 @ 125 mls/hr IVC .Q8H [facility] Rx#: [id number] Flagyl Premix 500 MG/100 ML 500 100 / 200 100 / 200 mg In 100 ml @ 100 mls/hr IVPB Q8HR [facility] Rx#:[id number] Output: Stool 600 / 600 Catheter 400 / 400 Other: Stool Consistency liquid formed Stool Color Brown Weight 54.8 kg Blood Glucose* 129 Patient Weight 12/05/18 23:59 Weight 54.8 kg - General physical appearance moderate pain, chronically ill, other - ENT atraumatic, normocephalic - Neck Neck exam: trachea midline - Respiratory normal expansion, clear to auscultation - Cardiovascular Cardiovascular exam: Present: tachycardia - Abdomen Abdomen: Present: bowel sounds present, tender, wound (stoma pink and moist). Absent: soft (firm but not rigid) - Genitourinary other (SPC and peñaloza noted) - Integumentary no rash - Neurologic normal sensation - Musculoskeletal normal posture - Psychiatric oriented to time, oriented to person, oriented to place - Labs 12/05/18 03:39 12/05/18 03:39 Diabetes panel 12/05/18 Range/Units 03:39 Sodium 134 L (136-145) mEq/L Potassium 3.1 L (3.5-5.1) mEq/L Chloride 104 (98-107) mEq/L Carbon Dioxide 19 L (23-29) mEq/L BUN 10 (6-20) mg/dL Creatinine 0.72 (0.70-1.30) mg/dL Glucose 127 H (70-105) mg/dL Calcium 8.5 L (8.6-10.3) mg/dL Calcium panel 12/05/18 Range/Units 03:39 Calcium 8.5 L (8.6-10.3) mg/dL Pituitary panel 12/05/18 Range/Units 03:39 Sodium 134 L (136-145) mEq/L Potassium 3.1 L (3.5-5.1) mEq/L Chloride 104 (98-107) mEq/L Carbon Dioxide 19 L (23-29) mEq/L BUN 10 (6-20) mg/dL Creatinine 0.72 (0.70-1.30) mg/dL Glucose 127 H (70-105) mg/dL Calcium 8.5 L (8.6-10.3) mg/dL Adrenal panel 12/05/18 Range/Units 03:39 Sodium 134 L (136-145) mEq/L Potassium 3.1 L (3.5-5.1) mEq/L Chloride 104 (98-107) mEq/L Carbon Dioxide 19 L (23-29) mEq/L BUN 10 (6-20) mg/dL Creatinine 0.72 (0.70-1.30) mg/dL Glucose 127 H (70-105) mg/dL Calcium 8.5 L (8.6-10.3) mg/dL - VTE Reasons for not Prescribing Prophylaxis: Treatment not Indicated - Low risk for VTE Consult Discharge Plan - Plan Referrals: Nikita Lawrence MD [Primary Care Provider] - <Italo John - Last Filed: 12/05/18 20:43> Date of Encounter: 12/05/18 Objective Vital Signs - Last 8 Hours Temp Pulse Resp BP Pulse Ox 12/05/18 18:41 98.5 F 116 16 118/68 94 Intake and Output 12/05/18 12/05/18 12/05/18 07:59 15:59 23:59 Intake Total 1100 / 1200 100 / 1200 0 / 1200 Output Total 1000 / 1050 50 / 1050 Balance 1100 / 150 -900 / 150 -50 / 150 Intake: IV Fluids 1100 / 1200 100 / 1200 0.9 % Sodium Chloride 1,000 ML 1000 / 1000 @ 125 mls/hr IVC .Q8H [facility] Rx#: [id number] Flagyl Premix 500 MG/100 ML 500 100 / 200 100 / 200 mg In 100 ml @ 100 mls/hr IVPB Q8HR [facility] Rx#:[id number] Oral 0 / 0 Output: Stool 600 / 600 Urine/Stool Mix 50 / 50 Catheter 400 / 400 0 / 400 Other: Stool Size Small Stool Consistency liquid liquid formed soft formed Stool Characteristics Normal for Patient Stool Color Brown Brown # Bowel Movements 1 Weight 54.8 kg Blood Glucose* 129 Patient Weight 12/05/18 23:59 Weight 54.8 kg - Labs 12/05/18 03:39 12/05/18 03:39 Diabetes panel 12/05/18 Range/Units 03:39 Sodium 134 L (136-145) mEq/L Potassium 3.1 L (3.5-5.1) mEq/L Chloride 104 (98-107) mEq/L Carbon Dioxide 19 L (23-29) mEq/L BUN 10 (6-20) mg/dL Creatinine 0.72 (0.70-1.30) mg/dL Glucose 127 H (70-105) mg/dL Calcium 8.5 L (8.6-10.3) mg/dL Calcium panel 12/05/18 Range/Units 03:39 Calcium 8.5 L (8.6-10.3) mg/dL Pituitary panel 12/05/18 Range/Units 03:39 Sodium 134 L (136-145) mEq/L Potassium 3.1 L (3.5-5.1) mEq/L Chloride 104 (98-107) mEq/L Carbon Dioxide 19 L (23-29) mEq/L BUN 10 (6-20) mg/dL Creatinine 0.72 (0.70-1.30) mg/dL Glucose 127 H (70-105) mg/dL Calcium 8.5 L (8.6-10.3) mg/dL Adrenal panel 12/05/18 Range/Units 03:39 Sodium 134 L (136-145) mEq/L Potassium 3.1 L (3.5-5.1) mEq/L Chloride 104 (98-107) mEq/L Carbon Dioxide 19 L (23-29) mEq/L BUN 10 (6-20) mg/dL Creatinine 0.72 (0.70-1.30) mg/dL Glucose 127 H (70-105) mg/dL Calcium 8.5 L (8.6-10.3) mg/dL - Attending Attestation I examined this patient and my medical decision-making was reviewed with the VIDEO CLERK. I agree with the documented findings, disposition and treatment plan as described except to the extent set forth below. Pt is very depressed. + C diff on IV flagyl and vanco enemas. Will follow closely for mood issues and may consult Psych prn.
[2018-12-05] MEDS: Ketorolac 15 MG/ML VIAL IVP SCH (18:43)
[2018-12-06] MEDS: MetroNIDAZOLE 500 MG/100 ML 500 MG/100 ML BAG IVPB SCH ×4 (00:15→23:10)
[2018-12-06] MEDS: Acetaminophen IV 1,000 MG/100 ML INFUS..BTL IVPB SCH ×5 (00:15→23:09)
[2018-12-06] MEDS: Ketorolac 15 MG/ML VIAL IVP SCH ×5 (00:16→23:09)
[2018-12-06 02:03] LABS: Basophils % 0.2 %; Eosinophils % 0.2 %; Hemoglobin 9.4 g/dL (12.9-16.9); Immature Granulocytes % 0.4 % (0-4); Lymphocytes # 0.6 K/mcL (0.6-4.6); Lymphocytes % 3.2 %; Mean Corpuscular HGB Conc 32.4 g/dL (31.6-35.5); Mean Corpuscular Hemoglobin 27.2 pg (28.0-33.3); Mean Corpuscular Volume 83.8 fL (83.0-100.0); Mean Platelet Volume 8.6 fL (9.4-12.4); Monocytes # 1.6 K/mcL (0.0-1.3); Monocytes % 8.4 %; Platelet Count 262 K/mcL (140-400); Red Blood Count 3.46 M/mcL (4.19-5.50); Red Cell Distribution Width 19.1 % (11.5-14.5); Segmented Neutrophils % 87.6 %
[2018-12-06 02:09] LABS: Neutrophils # 16.6 K/mcL (1.6-8.9)
[2018-12-06 02:22] LABS: BUN/Creatinine Ratio 21 (6-26); Blood Urea Nitrogen 14 mg/dL (6-20); Calcium 8.2 mg/dL (8.6-10.3); Carbon Dioxide 20 mEq/L (23-29); Chloride 106 mEq/L (98-107); Glucose 126 mg/dL (70-105); Magnesium 1.7 mg/dL (1.6-2.6); Osmolality,Calculated 282 (280-300); Sodium 135 mEq/L (136-145); eGFR For African Americans > 60 (> 60); eGFR For Non-African Americans > 60 (> 60)
[2018-12-06 02:42] LABS: Anisocytosis 1+ (Not Present); Hypochromasia Present (Not Present); Platelet Estimate Normal (Normal)
[2018-12-06] MEDS: 0.9 % Sodium Chloride 1,000 ML IVC SCH ×2 (05:46→15:58)
[2018-12-06] MEDS: Ondansetron ODT 4 MG TAB.RAPDIS SL PRN ×2 (09:00→14:53)
[2018-12-06] MEDS: Vancomycin 500 MG, Sodium Chloride IRRigation 250 ML RC SCH (10:38)
--- NOTE | 2018-12-06 12:10 | Oncology Inp Consult Note ---
<Fidelina Lux - Last Filed: 12/07/18 07:05> Date of Encounter: 12/07/18 Time of Encounter: 11:40 Assessment and Plan (1) Rectal cancer Status: Acute Assessment and plan: Diagnosis: Stage I (ypT2 ypNx), moderately differentiated adenocarcinoma, Grade 2. LVI-, PNI-, Margins negative. Tumor size 4.5 x 2.5 x 0.5 cm. cT3-T4b, cN2a, M0 invasive, moderately to poorly differentiated rectal Adenocarcinoma s/p laparoscopic APR 09/21/18 with colostomy creation, preop placement of b/l ureteral stents and placement of suprapubic cath by urology, and repair of iatrogenic prostatic urethra by urology. Treatment summary: Completed neoadjuvant chemoradiation with Capecitabine for 6 weeks. Adjuvant chemotherapy plan (CapOx every 21 Days) Oxaliplatin Day 1 Capecitabine (Xeloda) 1500 mg PO BID on Days 1-14 then 7 days off. planned for 4.5 months of adjuvant therapy. Plan: Treatment on hold during hospitalization and treatment for c. diff colitis. Patient was scheduled for follow-up with Dr. Hawley at the [facility] on 12/08/18. Appointment will need to be rescheduled for 2 weeks after discharge. (2) C. difficile colitis Status: Acute Assessment and plan: Continue Vancomycin and Flagyl per primary team (3) UTI (urinary tract infection) Status: Acute Qualifiers: Urinary tract infection type: site unspecified Hematuria presence: without hematuria Qualified Code(s): N39.0 - Urinary tract infection, site not specified - Data of Consult Patient: known to practice within the last 3 years Requesting Physician: Italo Dailey Primary Care Provider: Nikita Lawrence MD - Consult Narrative Reason for consult: treatment recommendations History of present illness: Mr. Moscoso, a 53 yo male with known history of Stage 1 adenocarcinoma of the rectum, presented to the ED on 12/03/18 with abdominal pain. He notes that his stool from his colostomy were hard and were not passing through the stoma. At this time he began having worsening, cramping, abdominal pain across his abdomen. He notes after stool passing, he began having liquid stools, multiple times per day. Oncology history: Patient known to [facility] Primary oncology: Dr. Hawley Treatment summary: Completed neoadjuvant chemoradiation with Capecitabine for 6 weeks. Adjuvant chemotherapy plan (CapOx every 21 Days) Oxaliplatin Day 1 Capecitabine (Xeloda) 1500 mg PO BID on Days 1-14 then 7 days off. planned for 4.5 months of adjuvant therapy. Past Med Surg Social Fam HX - Past Medical History Medical history: cancer, other Additional medical history: neck pain. headaches. rectal cancer. smoking Psychiatric history: no psych history - Past Surgical History Surgical History: colostomy, other Additional surgical history: colostomy placed d/t colon resection - Social History Smoking Status: Current every day smoker Packs per day: 1 Smokeless Tobacco Status: No Alcohol use: none Drug use: none - Family History Mother Adopted: Yes Medications and Allergies Polyethylene Glycol 3350 [MiraLAX] 17 gm PO DAILY 07/27/18 [History] Ondansetron ODT [Zofran ODT] 4 mg SL Q4HR PRN #30 tab.rapdis 10/03/18 [Rx] Ondansetron HCl [Zofran] 4 mg PO Q6HR PRN #30 tablet 11/03/18 [Rx] Zolpidem [Ambien] 5 mg PO HS PRN 30 Days #30 tablet 11/17/18 [Rx] OxyCODONE ER (12 HR) [OxyCONTIN] 10 mg PO Q12HR 12/01/18 [History] OxyCODONE Immed Rel [Roxicodone 5 MG] 5 mg PO Q6HR PRN 12/01/18 [History] Capecitabine [Xeloda] 1,000 mg PO QPM 12/04/18 [History] Capecitabine [Xeloda] 1,500 mg PO BID #84 tablet 12/05/18 [Rx] Allergy/AdvReac Type Severity Reaction Status Date / Time No Known Allergies Allergy Verified 12/04/18 16:41 Constitutional: Present: fatigue. Absent: fever(s), weakness Cardiovascular: Present: rapid heart rate Respiratory: Absent: cough, dyspnea Gastrointestinal: Present: constipation, diarrhea. Absent: hematochezia, melena, nausea, vomiting Genitourinary: Absent: hematuria, urinary frequency, urinary urgency Neurological: Absent: numbness, tingling Oncology - Exam - Constitutional General appearance: cooperative, no acute distress, thin - Respiratory Respiratory exam: Present: decreased breath sounds. Absent: rales, rhonchi, wheezes - Cardiovascular Cardiovascular exam: Present: tachycardia - GI/Abdominal GI/Abdominal exam: Present: normal bowel sounds, soft - Extremities Exam Extremities exam: Present: normal inspection - Neurological Exam Neurological exam: Present: alert, oriented X3. Absent: facial droop, speech deficit - Psychiatric Psychiatric exam: Present: normal affect, normal mood - Skin Skin exam: Present: pallor Oncology Inpatient Results Labs: Laboratory Results - last 24 hr 12/05/18 12/06/18 12/06/18 11:41 01:43 01:43 WBC 19.0 H RBC 3.46 L Hgb 9.4 L Hct 29.0 L MCV 83.8 MCH 27.2 L MCHC 32.4 RDW 19.1 H Plt Count 262 MPV 8.6 L Immature Gran % 0.4 Seg Neutrophils % 87.6 Lymphocytes % 3.2 Monocytes % 8.4 Eosinophils % 0.2 Basophils % 0.2 Neutrophils # 16.6 H Lymphocytes # 0.6 Monocytes # 1.6 H Eosinophils # 0.0 Basophils # 0.0 Platelet Estimate Normal Hypochromasia Present A Anisocytosis 1+ A Sodium 135 L Potassium 3.0 L Chloride 106 Carbon Dioxide 20 L BUN 14 Creatinine 0.66 L Est GFR ( Amer) > 60 Est GFR (Non-Af Amer) > 60 BUN/Creatinine Ratio 21 Glucose 126 H POC Glucose 129 H Calculated Osmolality 282 Lactic Acid Calcium 8.2 L Phosphorus 2.0 L Magnesium 1.7 12/06/18 01:43 WBC RBC Hgb Hct MCV MCH MCHC RDW Plt Count MPV Immature Gran % Seg Neutrophils % Lymphocytes % Monocytes % Eosinophils % Basophils % Neutrophils # Lymphocytes # Monocytes # Eosinophils # Basophils # Platelet Estimate Hypochromasia Anisocytosis Sodium Potassium Chloride Carbon Dioxide BUN Creatinine Est GFR ( Amer) Est GFR (Non-Af Amer) BUN/Creatinine Ratio Glucose POC Glucose Calculated Osmolality Lactic Acid 0.5 Calcium Phosphorus Magnesium Abdomen/Pelvis CT 12/03/18 19:11 IMPRESSION: 1. Perianal abscess much smaller than on prior exam 11/06/2018. 2. Persistent but overall decreased inflammatory changes in the pelvis including markedly thick-walled enhancing urinary bladder. 3. Interval development of findings of acute colitis descending colon. This may be on an infectious, inflammatory or reactive basis. 4. Moderate volume fecal debris may reflect constipation. 5. Left upper quadrant colostomy. 6. Possible cholelithiasis versus gallbladder stand. D/ / Benoit Carrera / Benoit Carrera Interpreting Provider: Benoit Carrera Consult Discharge Plan - Plan Referrals: Nikita Lawrence MD [Primary Care Provider] - Inpatient Charges Provider: Dr. Jerrica Pino <Fabiola Pino S - Last Filed: 12/07/18 08:36> Date of Encounter: 12/06/18 - Data of Consult Requesting Physician: Italo Dailey Primary Care Provider: Nikita Lawrence MD Inpatient Charges Provider: Dr. Jerrica Pino Consult - Inpatient: [id number] - Attending Attestation I examined this patient and my medical decision-making was reviewed with the Advanced Practice Nurse. I agree with the documented findings, disposition and treatment plan as described except to the extent set forth below. 1. AJCC eighth edition clinical stage III cT3-T4b, cN2a, M0 invasive, moderately to poorly differentiated rectal Adenocarcinoma. Completed neoadjuvant chemoradiation with Capecitabine for 6 weeks. S/p laparoscopic APR 09/21/18 with colostomy creation, preop placement of b/l ureteral stents and placement of suprapubic cath by urology, and repair of iatrogenic prostatic urethra by urology. Down staged to (ypT2 ypNx), moderately differentiated adenocarcinoma, Grade 2. LVI-, PNI-, Margins negative. Tumor size 4.5 x 2.5 x 0.5 cm. Adjuvant chemotherapy plan (CapOx every 21 Days) Oxaliplatin Day 1 Capecitabine (Xeloda) 1500 mg PO BID on Days 1-14 then 7 days off. planned for 4.5 months of adjuvant therapy. Cycle 1 on 11/17/2018. Cycle 2 scheduled for 12/08/2018 but will be postponed as mentioned below 2. Admitted with acute C. difficile colitis. Diarrhea in the colostomy bag. He is getting treatment including vancomycin. Metronidazole IV. Also on Cipro Advised about importance of probiotics. We will make appointment Dr. Hawley an outpatient to discuss timing of cycle 2 chemotherapy
--- NOTE | 2018-12-06 13:56 | General Surgery Progress Note ---
<Elisha Claudio - Last Filed: 12/06/18 15:58> Date of Encounter: 12/06/18 Time of Encounter: 15:00 - Assessment and Plan (1) C. difficile colitis Current Visit: No Status: Acute Abdominal pain significantly improved with conservative treatment IV Flagyl Oral Vancomycin Supportive care IV fluids GI/DVT prophylaxis Repeat am labs- CBC, BMP (2) Rectal cancer Current Visit: No Status: Acute Oncology consulted for recommendations Hold treatment while being treated for C.Diff colitis and follow-up as outpatient (3) UTI (urinary tract infection) Current Visit: No Status: Acute Continue Cipro IV Final micro- Mixed organisms Repeat urine culture Qualifiers: Urinary tract infection type: site unspecified Hematuria presence: without hematuria Qualified Code(s): N39.0 - Urinary tract infection, site not spec ified (4) Hypokalemia Current Visit: No Status: Acute Replace potassium Repeat am labs Subjective Patient reports: no new complaints, feels better, tolerating liquids well, flatus, bowel movement (via ostomy), afebrile Objective Vital Signs - Last 8 Hours Temp Pulse Resp BP Pulse Ox 12/06/18 10:27 97.6 F 93 16 103/71 95 12/06/18 06:51 97.8 F 99 16 97/67 95 Intake and Output 12/05/18 12/06/18 12/06/18 23:59 07:59 15:59 Intake Total 1300 / 2500 200 / 400 200 / 400 Output Total 50 / 1050 520 / 670 150 / 670 Balance 1250 / 1450 -320 / -270 50 / -270 Intake: IV Fluids 1300 / 2500 200 / 400 200 / 400 0.9 % Sodium Chloride 1,000 ML 1000 / 2000 @ 125 mls/hr IVC .Q8H [facility] Rx#: [id number] Ofirmev 1,000 mg/100 ml 1,000 100 / 200 100 / 200 mg In 100 ml @ 400 mls/hr IVPB Q6HR [facility] Rx#:[id number] Cipro Premix 400 MG/200 ML 400 200 / 200 mg In 200 ml @ 200 mls/hr IVPB Q12HR [facility] Rx#:[id number] Flagyl Premix 500 MG/100 ML 500 100 / 300 100 / 200 100 / 200 mg In 100 ml @ 100 mls/hr IVPB Q8HR [facility] Rx#:[id number] Oral 0 / 0 Output: Urine 150 / 150 Stool 150 / 150 0 / 150 Urine/Stool Mix 50 / 50 Catheter 0 / 400 370 / 370 Other: Meal NPO for Breakfast Stool Size Small Stool Consistency liquid soft formed Stool Characteristics Normal for Patient Stool Color Brown Brown # Bowel Movements 1 Weight 55 kg Blood Glucose* 106 116 108 Patient Weight 12/06/18 23:59 Weight 55 kg - General physical appearance well developed, no distress - Eyes normal ocular movement - ENT atraumatic, normocephalic - Neck Neck exam: trachea midline - Respiratory normal expansion, normal respiratory effort, clear to auscultation - Cardiovascular Cardiovascular exam: Present: RRR - Abdomen Abdomen: Present: bowel sounds present, soft, non tender, wound (Ostomy with soft, brown stool noted) - Genitourinary other (peñaloza catheter with alexandra yellow urine noted) - Neurologic CN 2-12 grossly intact - Musculoskeletal normal gait, normal posture - Psychiatric oriented to time, oriented to person, oriented to place, speech is normal, memory intact - Labs 12/06/18 01:43 12/06/18 01:43 Diabetes panel 12/06/18 Range/Units 01:43 Sodium 135 L (136-145) mEq/L Potassium 3.0 L (3.5-5.1) mEq/L Chloride 106 (98-107) mEq/L Carbon Dioxide 20 L (23-29) mEq/L BUN 14 (6-20) mg/dL Creatinine 0.66 L (0.70-1.30) mg/dL Glucose 126 H (70-105) mg/dL Calcium 8.2 L (8.6-10.3) mg/dL Calcium panel 12/06/18 Range/Units 01:43 Calcium 8.2 L (8.6-10.3) mg/dL Phosphorus 2.0 L (2.7-4.5) mg/dL Pituitary panel 12/06/18 Range/Units 01:43 Sodium 135 L (136-145) mEq/L Potassium 3.0 L (3.5-5.1) mEq/L Chloride 106 (98-107) mEq/L Carbon Dioxide 20 L (23-29) mEq/L BUN 14 (6-20) mg/dL Creatinine 0.66 L (0.70-1.30) mg/dL Glucose 126 H (70-105) mg/dL Calcium 8.2 L (8.6-10.3) mg/dL Adrenal panel 12/06/18 Range/Units 01:43 Sodium 135 L (136-145) mEq/L Potassium 3.0 L (3.5-5.1) mEq/L Chloride 106 (98-107) mEq/L Carbon Dioxide 20 L (23-29) mEq/L BUN 14 (6-20) mg/dL Creatinine 0.66 L (0.70-1.30) mg/dL Glucose 126 H (70-105) mg/dL Calcium 8.2 L (8.6-10.3) mg/dL - VTE Reasons for not Prescribing Prophylaxis: Treatment not Indicated - Low risk for VTE Consult Discharge Plan - Plan Referrals: Nikita Lawrence MD [Primary Care Provider] - - Attending Attestation For this encounter, I have reviewed the ENERGY SALES CONSULTANT or PA documentation, treatment plan, and medical decision making; and I have had face to face time with this patient. <Tank Salas - Last Filed: 12/07/18 07:17> Date of Encounter: 12/07/18 Objective Vital Signs - Last 8 Hours Temp Pulse Resp BP Pulse Ox 12/07/18 06:31 97.6 F 93 17 82/46 94 12/07/18 03:08 97.7 F 93 16 98/62 96 Intake and Output 12/06/18 12/06/18 12/07/18 15:59 23:59 07:59 Intake Total 1300 / 2722 1022 / 2722 400 / 400 Output Total 400 / 920 325 / 325 Balance 900 / 1802 1022 / 1802 75 / 75 Intake: IV Fluids 1300 / 2722 1022 / 2722 400 / 400 0.9 % Sodium Chloride 1,000 ML 1000 / 1000 @ 125 mls/hr IVC .Q8H [facility] Rx#: [id number] Ofirmev 1,000 mg/100 ml 1,000 200 / 500 200 / 500 100 / 100 mg In 100 ml @ 400 mls/hr IVPB Q6HR [facility] Rx#:[id number] Cipro Premix 400 MG/200 ML 400 200 / 400 200 / 200 mg In 200 ml @ 200 mls/hr IVPB Q12HR [facility] Rx#:[id number] Flagyl Premix 500 MG/100 ML 500 100 / 300 100 / 300 100 / 100 mg In 100 ml @ 100 mls/hr IVPB Q8HR [facility] Rx#:[id number] Potassium Chloride 40 MEQ 522 / 522 Xylocaine 2 ML In Dextrose 5% 500 ML @ 130.5 mls/hr IVPB ONCE ONE Rx#:[id number] Oral 0 / 0 0 / 0 Output: Urine 150 / 150 Stool 100 / 250 200 / 200 Catheter 150 / 520 125 / 125 Other: Meal NPO for Lunch Stool Consistency liquid Stool Color Brown Yellow Weight 56.2 kg Blood Glucose* 108 114 Patient Weight 12/07/18 23:59 Weight 56.2 kg - Labs 12/07/18 05:25 12/07/18 05:25 Diabetes panel 12/07/18 Range/Units 05:25 Sodium 136 (136-145) mEq/L Potassium 3.1 L (3.5-5.1) mEq/L Chloride 104 (98-107) mEq/L Carbon Dioxide 20 L (23-29) mEq/L BUN 12 (6-20) mg/dL Creatinine 0.58 L (0.70-1.30) mg/dL Glucose 102 (70-105) mg/dL Calcium 8.2 L (8.6-10.3) mg/dL Calcium panel 12/07/18 Range/Units 05:25 Calcium 8.2 L (8.6-10.3) mg/dL Phosphorus 2.0 L (2.7-4.5) mg/dL Pituitary panel 12/07/18 Range/Units 05:25 Sodium 136 (136-145) mEq/L Potassium 3.1 L (3.5-5.1) mEq/L Chloride 104 (98-107) mEq/L Carbon Dioxide 20 L (23-29) mEq/L BUN 12 (6-20) mg/dL Creatinine 0.58 L (0.70-1.30) mg/dL Glucose 102 (70-105) mg/dL Calcium 8.2 L (8.6-10.3) mg/dL Adrenal panel 12/07/18 Range/Units 05:25 Sodium 136 (136-145) mEq/L Potassium 3.1 L (3.5-5.1) mEq/L Chloride 104 (98-107) mEq/L Carbon Dioxide 20 L (23-29) mEq/L BUN 12 (6-20) mg/dL Creatinine 0.58 L (0.70-1.30) mg/dL Glucose 102 (70-105) mg/dL Calcium 8.2 L (8.6-10.3) mg/dL - Attending Attestation patient seen and examined. i have reviewed all labs, imaging, and notes pertinent to this case. i have discussed the case in detail with the ENERGY SALES CONSULTANT. I agree with the above assessment and plan.
[2018-12-06] MEDS ORDERED: Potassium Chloride 40 MEQ, Lidocaine 1% 2 ML in D5% in Water 500 ML IVPB ONE (15:59)
[2018-12-06] MEDS: Vancomycin Oral Soln 125 MG/2.5 ML UDC PO SCH ×3 (16:00→21:29)
[2018-12-06] MEDS: *HR* Heparin 5,000 UNIT/ML VIAL SQ SCH (17:09)
[2018-12-07] MEDS: Ketorolac 15 MG/ML VIAL IVP SCH ×3 (05:30→17:41)
[2018-12-07] MEDS: *HR* Heparin 5,000 UNIT/ML VIAL SQ SCH ×2 (05:30→17:41)
[2018-12-07] MEDS: Acetaminophen IV 1,000 MG/100 ML INFUS..BTL IVPB SCH ×3 (05:30→17:41)
[2018-12-07 06:01] LABS: Basophils % 0.3 %; Eosinophils # 0.1 K/mcL (0.0-0.6); Eosinophils % 0.7 %; Hematocrit 29.8 % (37.5-50.1); Hemoglobin 9.4 g/dL (12.9-16.9); Immature Granulocytes % 0.6 % (0-4); Lymphocytes # 0.5 K/mcL (0.6-4.6); Lymphocytes % 3.3 %; Mean Corpuscular HGB Conc 31.5 g/dL (31.6-35.5); Mean Corpuscular Hemoglobin 26.7 pg (28.0-33.3); Mean Corpuscular Volume 84.7 fL (83.0-100.0); Mean Platelet Volume 8.9 fL (9.4-12.4); Monocytes # 0.9 K/mcL (0.0-1.3); Monocytes % 6.2 %; Platelet Count 290 K/mcL (140-400); Red Blood Count 3.52 M/mcL (4.19-5.50); Segmented Neutrophils % 88.9 %; White Blood Count 14.6 K/mcL (4.3-11.1)
[2018-12-07 06:48] LABS: BUN/Creatinine Ratio 21 (6-26); Blood Urea Nitrogen 12 mg/dL (6-20); Calcium 8.2 mg/dL (8.6-10.3); Carbon Dioxide 20 mEq/L (23-29); Chloride 104 mEq/L (98-107); Glucose 102 mg/dL (70-105); Magnesium 1.7 mg/dL (1.6-2.6); Osmolality,Calculated 282 (280-300); Potassium 3.1 mEq/L (3.5-5.1); Sodium 136 mEq/L (136-145); eGFR For African Americans > 60 (> 60); eGFR For Non-African Americans > 60 (> 60)
[2018-12-07] MEDS ORDERED: Potassium Phosphate 44 MEQ in 0.9 % Sodium Chloride 250 ML IVPB ONE (07:18)
[2018-12-07 07:31] LABS: % Iron Saturation 11 % (20-55); Iron 15 mcg/dL (65-175); Lactate Dehydrogenase 102 Units/L (140-271); Transferrin 101 mg/dL (203-362)
[2018-12-07 07:49] LABS: Ferritin 291 ng/mL (20-250)
[2018-12-07] MEDS: Pantoprazole 40 MG VIAL IVP SCH (08:02)
[2018-12-07] MEDS: MetroNIDAZOLE 500 MG/100 ML 500 MG/100 ML BAG IVPB SCH ×2 (08:02→15:29)
[2018-12-07] MEDS: Vancomycin Oral Soln 125 MG/2.5 ML UDC PO SCH ×4 (08:03→21:59)
[2018-12-07] MEDS: 0.9 % Sodium Chloride 1,000 ML IVC SCH (12:23)
--- NOTE | 2018-12-07 12:41 | General Surgery Progress Note ---
Date of Encounter: 12/07/18 Time of Encounter: 12:39 - Assessment and Plan (1) C. difficile colitis Current Visit: Yes Status: Acute 53M s/p lap APR with repair of membranous urethra with recent antibiotic administration now with C. diff colitis; currently on PO vanc and IV flagyl; WBC trending down, less pain, tolerating limited clears; abd distended, but ostomy is functioning; cont with current diet DVT prophyaxis cont IVF replace electrolytes AM labs activity as tolerated Subjective Patient reports: no new complaints, feels better, still having pain, pain is less, tolerating liquids well, flatus, bowel movement, afebrile Objective Vital Signs - Last 8 Hours Temp Pulse Resp BP Pulse Ox 12/07/18 10:09 97.8 F 99 17 100/67 97 12/07/18 06:31 97.6 F 93 17 82/46 94 Intake and Output 12/06/18 12/07/18 12/07/18 23:59 07:59 15:59 Intake Total 2021 / 3721 400 / 964 564 / 964 Output Total 325 / 425 100 / 425 Balance 2021 / 2802 75 / 539 464 / 539 Intake: IV Fluids 2021 400 / 604 204 / 604 0.9 % Sodium Chloride 1,000 ML 1000 / 2000 @ 125 mls/hr IVC .Q8H [facility] Rx#: [id number] Ofirmev 1,000 mg/100 ml 1,000 200 / 500 100 / 100 mg In 100 ml @ 400 mls/hr IVPB Q6HR [facility] Rx#:[id number] Cipro Premix 400 MG/200 ML 400 200 / 400 200 / 200 mg In 200 ml @ 200 mls/hr IVPB Q12HR [facility] Rx#:[id number] Magnesium Sulfate 2 GM In 0.9 % 104 / 104 Sodium Chloride 100 ML @ 104 mls/hr IVPB ONCE ONE Rx#: [id number] Flagyl Premix 500 MG/100 ML 500 100 / 300 100 / 200 100 / 200 mg In 100 ml @ 100 mls/hr IVPB Q8HR [facility] Rx#:[id number] Potassium Chloride 40 MEQ 522 / 522 Xylocaine 2 ML In Dextrose 5% 500 ML @ 130.5 mls/hr IVPB ONCE ONE Rx#:[id number] Oral 0 / 0 0 / 360 360 / 360 Output: Stool 200 / 225 25 / 225 Catheter 125 / 200 75 / 200 Other: Stool Consistency liquid Stool Color Brown Yellow Weight 56.2 kg Blood Glucose* 114 Patient Weight 12/07/18 23:59 Weight 56.2 kg - General physical appearance no distress - Respiratory normal expansion, normal respiratory effort - Abdomen Abdomen: Present: soft, distended, tender (decreased tenderness) - Neurologic CN 2-12 grossly intact - Psychiatric oriented to time, oriented to person, oriented to place - Labs 12/07/18 05:25 12/07/18 05:25 Diabetes panel 12/07/18 Range/Units 05:25 Sodium 136 (136-145) mEq/L Potassium 3.1 L (3.5-5.1) mEq/L Chloride 104 (98-107) mEq/L Carbon Dioxide 20 L (23-29) mEq/L BUN 12 (6-20) mg/dL Creatinine 0.58 L (0.70-1.30) mg/dL Glucose 102 (70-105) mg/dL Calcium 8.2 L (8.6-10.3) mg/dL Calcium panel 12/07/18 Range/Units 05:25 Calcium 8.2 L (8.6-10.3) mg/dL Phosphorus 2.0 L (2.7-4.5) mg/dL Pituitary panel 12/07/18 Range/Units 05:25 Sodium 136 (136-145) mEq/L Potassium 3.1 L (3.5-5.1) mEq/L Chloride 104 (98-107) mEq/L Carbon Dioxide 20 L (23-29) mEq/L BUN 12 (6-20) mg/dL Creatinine 0.58 L (0.70-1.30) mg/dL Glucose 102 (70-105) mg/dL Calcium 8.2 L (8.6-10.3) mg/dL Adrenal panel 12/07/18 Range/Units 05:25 Sodium 136 (136-145) mEq/L Potassium 3.1 L (3.5-5.1) mEq/L Chloride 104 (98-107) mEq/L Carbon Dioxide 20 L (23-29) mEq/L BUN 12 (6-20) mg/dL Creatinine 0.58 L (0.70-1.30) mg/dL Glucose 102 (70-105) mg/dL Calcium 8.2 L (8.6-10.3) mg/dL - VTE Reasons for not Prescribing Prophylaxis: Treatment not Indicated - Low risk for VTE Consult Discharge Plan - Plan Referrals: Nikita Lawrence MD [Primary Care Provider] -
[2018-12-07] MEDS: D5% in 0.45% NACL w KCl 20 MEQ/1,000 ML MLS IVC SCH (15:29)
--- NOTE | 2018-12-07 16:30 | Oncology Inp Progress Note ---
<Fidelina Lux - Last Filed: 12/07/18 16:28> Date of Encounter: 12/07/18 Time of Encounter: 14:30 (1) Rectal cancer Current Visit: No Status: Acute Assessment and plan: Diagnosis: Stage I (ypT2 ypNx), moderately differentiated adenocarcinoma, Grade 2. LVI-, PNI-, Margins negative. Tumor size 4.5 x 2.5 x 0.5 cm. cT3-T4b, cN2a, M0 invasive, moderately to poorly differentiated rectal Adenocarcinoma s/p laparoscopic APR 09/21/18 with colostomy creation, preop placement of b/l ureteral stents and placement of suprapubic cath by urology, and repair of iatrogenic prostatic urethra by urology. Treatment summary: Completed neoadjuvant chemoradiation with Capecitabine for 6 weeks. Adjuvant chemotherapy plan (CapOx every 21 Days) Oxaliplatin Day 1 Capecitabine (Xeloda) 1500 mg PO BID on Days 1-14 then 7 days off. planned for 4.5 months of adjuvant therapy. Anemia: Hgb 9.4 Iron 15, saturation 11%, ferritin 291 LDH 102 TSH: WNL Plan: Treatment on hold during hospitalization and treatment for c. diff colitis. Patient was provided with [facility] oncology center appointment calendar. Tomorrow's follow-up canceled. Patient verbalized acceptance. (2) C. difficile colitis Current Visit: Yes Status: Acute Assessment and plan: Continue Vancomycin and Flagyl per primary team Oncology: Subj Interval history: Patient awake and alert sitting up in bed with family at bedside. Luis Fernando notes that he is feeling a little better today. He continues with abdominal pain of 5 out of 10, and liquid brown stools through colostomy. He is receiving PO Vancomycin and Flagyl. He denies fever or chills. He denies nausea or vomiting. His diet was advanced to clear liquids and states that he is tolerating without difficulty. Discussed [facility]cheduled appointment at [facility]. New appointment calendar provided. Patient and spouse verbalized acceptance of the plan. - Constitutional General appearance: cooperative, no acute distress, thin - Respiratory Respiratory exam: Present: decreased breath sounds, CTAB. Absent: rales, respiratory distress, rhonchi, wheezes - Cardiovascular Cardiovascular exam: Present: tachycardia - GI/Abdominal GI/Abdominal exam: Present: distended, normal bowel sounds - Neurological Exam Neurological exam: Present: alert, oriented X3, strengths equal and symetr thr oughout. Absent: facial droop, speech deficit - Psychiatric Psychiatric exam: Present: normal affect, normal mood - Skin Skin exam: Present: pallor Oncology: Obj Data - Labs CBC & Chem 7: 12/07/18 05:25 12/07/18 05:25 Consult Discharge Plan - Plan Referrals: Nikita Lawrence MD [Primary Care Provider] - Inpatient Charges Provider: Dr. Jerrica Pino <Fabiola Pino S - Last Filed: 12/07/18 19:23> Date of Encounter: 12/07/18 Oncology: Obj Data - Labs CBC & Chem 7: 12/07/18 05:25 12/07/18 05:25 Inpatient Charges Provider: Dr. Jerrica Pino Follow up - Inpatient: [id number] - Attending Attestation I examined this patient and my medical decision-making was reviewed with the Advanced Practice Nurse. I agree with the documented findings, disposition and treatment plan as described except to the extent set forth below. 1. Rectal cancer post AP resection. 2. C. difficile colitis. We will make an outpatient appointment Dr. Hawley to discuss timing of further adjuvant chemotherapy
[2018-12-08] MEDS: Ketorolac 15 MG/ML VIAL IVP SCH ×5 (01:32→23:49)
[2018-12-08] MEDS: Acetaminophen IV 1,000 MG/100 ML INFUS..BTL IVPB SCH ×3 (01:33→12:42)
[2018-12-08] MEDS: MetroNIDAZOLE 500 MG/100 ML 500 MG/100 ML BAG IVPB SCH ×4 (01:34→23:50)
[2018-12-08 02:04] LABS: Basophils % 0.3 %; Eosinophils # 0.1 K/mcL (0.0-0.6); Eosinophils % 1.1 %; Hemoglobin 9.2 g/dL (12.9-16.9); Immature Granulocytes % 0.5 % (0-4); Lymphocytes # 0.6 K/mcL (0.6-4.6); Lymphocytes % 5.5 %; Mean Corpuscular HGB Conc 32.9 g/dL (31.6-35.5); Mean Corpuscular Hemoglobin 26.7 pg (28.0-33.3); Mean Corpuscular Volume 81.2 fL (83.0-100.0); Mean Platelet Volume 8.9 fL (9.4-12.4); Monocytes # 0.8 K/mcL (0.0-1.3); Monocytes % 7.6 %; Neutrophils # 9.4 K/mcL (1.6-8.9); Platelet Count 326 K/mcL (140-400); Red Blood Count 3.45 M/mcL (4.19-5.50); Red Cell Distribution Width 19.1 % (11.5-14.5); White Blood Count 11.1 K/mcL (4.3-11.1)
[2018-12-08 02:23] LABS: BUN/Creatinine Ratio 21 (6-26); Blood Urea Nitrogen 11 mg/dL (6-20); Calcium 7.8 mg/dL (8.6-10.3); Carbon Dioxide 21 mEq/L (23-29); Chloride 107 mEq/L (98-107); Glucose 129 mg/dL (70-105); Magnesium 1.8 mg/dL (1.6-2.6); Osmolality,Calculated 279 (280-300); Phosphorous 2.1 mg/dL (2.7-4.5); Potassium 3.1 mEq/L (3.5-5.1); Sodium 134 mEq/L (136-145); eGFR For African Americans > 60 (> 60); eGFR For Non-African Americans > 60 (> 60)
[2018-12-08] MEDS: D5% in 0.45% NACL w KCl 20 MEQ/1,000 ML MLS IVC SCH ×3 (02:49→16:11)
[2018-12-08] MEDS: *HR* Heparin 5,000 UNIT/ML VIAL SQ SCH ×2 (06:00→18:57)
[2018-12-08] MEDS: Vancomycin Oral Soln 125 MG/2.5 ML UDC PO SCH ×4 (09:44→20:17)
[2018-12-08] MEDS: Pantoprazole 40 MG VIAL IVP SCH (09:48)
--- NOTE | 2018-12-08 16:29 | General Surgery Progress Note ---
<Jeanne Gross Zeynep - Last Filed: 12/08/18 16:26> Date of Encounter: 12/08/18 Time of Encounter: 07:45 - Assessment and Plan (1) C. difficile colitis Current Visit: Yes Status: Acute Improving however he is still mildly distended and tympanic. We will add bowel regimen as he did have significant constipation on CT. He is tolerating limiting clears. We will continue PO Vanc and IV Flagyl Repeat am labs GI and DVT prophylaxis incentive spirometry out of bed to chair TID ambulate as tolerated (2) Rectal cancer Current Visit: No Status: Acute Oncology following. We appreciate your recommendations. Hold treatment during hospitalization and treatment for C diff colitis (3) UTI (urinary tract infection) Current Visit: Yes Status: Acute Cipro IV Qualifiers: Urinary tract infection type: site unspecified Hematuria presence: without hematuria Qualified Code(s): N39.0 - Urinary tract infection, site not specified (4) Hypokalemia Current Visit: Yes Status: Acute 40 MEQ k IV today Recheck am Subjective Patient reports: feels better, still having pain, pain is less, tolerating liquids well, voiding w/o difficulty, flatus, bowel movement (per ostomy), afebrile Objective Vital Signs - Last 8 Hours Temp Pulse Resp BP Pulse Ox 12/08/18 14:30 97.9 F 96 17 115/76 97 12/08/18 11:23 98.1 F 98 17 110/74 95 Intake and Output 12/08/18 12/08/18 12/08/18 07:59 15:59 23:59 Intake Total 2760 / 4260 1500 / 4260 Output Total 1450 / 1775 325 / 1775 Balance 1310 / 2485 1175 / 2485 Intake: IV Fluids 2760 / 2960 200 / 2960 0.9 % Sodium Chloride 1,000 ML 1000 / 1000 @ 125 mls/hr IVC .Q8H [facility] Rx#: [id number] KCl 20mEq IN D5%-0.45 NACL 20 1000 / 1000 meq In 1,000 ml @ 100 mls/hr IVC .Q10H [facility] Rx#:[id number] Ofirmev 1,000 mg/100 ml 1,000 200 / 300 100 / 300 mg In 100 ml @ 400 mls/hr IVPB Q6HR [facility] Rx#:[id number] Cipro Premix 400 MG/200 ML 400 200 / 200 mg In 200 ml @ 200 mls/hr IVPB Q12HR [facility] Rx#:[id number] Flagyl Premix 500 MG/100 ML 500 100 / 200 100 / 200 mg In 100 ml @ 100 mls/hr IVPB Q8HR [facility] Rx#:[id number] Potassium Phosphate 44 MEQ In 0 260 / 260 .9 % Sodium Chloride 250 ML @ 40 mls/hr IVPB ONCE ONE Rx#: [id number] Oral 0 / 1300 1300 / 1300 Output: Stool 25 / 25 Catheter 1450 / 1750 300 / 1750 Other: Meal clears Percent of Meal Consumed 100% - General physical appearance no distress, chronically ill - Respiratory normal expansion, normal respiratory effort - Cardiovascular Cardiovascular exam: Present: RRR - Abdomen Abdomen: Present: bowel sounds present, soft, tympanic, distended, tender - Integumentary no rash - Neurologic normal sensation - Musculoskeletal normal posture - Psychiatric oriented to time, oriented to person, oriented to place - Labs 12/08/18 01:30 12/08/18 01:30 Diabetes panel 12/08/18 Range/Units 01:30 Sodium 134 L (136-145) mEq/L Potassium 3.1 L (3.5-5.1) mEq/L Chloride 107 (98-107) mEq/L Carbon Dioxide 21 L (23-29) mEq/L BUN 11 (6-20) mg/dL Creatinine 0.53 L (0.70-1.30) mg/dL Glucose 129 H (70-105) mg/dL Calcium 7.8 L (8.6-10.3) mg/dL Calcium panel 12/08/18 Range/Units 01:30 Calcium 7.8 L (8.6-10.3) mg/dL Phosphorus 2.1 L (2.7-4.5) mg/dL Pituitary panel 12/08/18 Range/Units 01:30 Sodium 134 L (136-145) mEq/L Potassium 3.1 L (3.5-5.1) mEq/L Chloride 107 (98-107) mEq/L Carbon Dioxide 21 L (23-29) mEq/L BUN 11 (6-20) mg/dL Creatinine 0.53 L (0.70-1.30) mg/dL Glucose 129 H (70-105) mg/dL Calcium 7.8 L (8.6-10.3) mg/dL Adrenal panel 12/08/18 Range/Units 01:30 Sodium 134 L (136-145) mEq/L Potassium 3.1 L (3.5-5.1) mEq/L Chloride 107 (98-107) mEq/L Carbon Dioxide 21 L (23-29) mEq/L BUN 11 (6-20) mg/dL Creatinine 0.53 L (0.70-1.30) mg/dL Glucose 129 H (70-105) mg/dL Calcium 7.8 L (8.6-10.3) mg/dL - VTE Reasons for not Prescribing Prophylaxis: Treatment not Indicated - Low risk for VTE Consult Discharge Plan - Plan Referrals: Nikita Lawrence MD [Primary Care Provider] - <Tank Salas - Last Filed: 12/08/18 18:16> Date of Encounter: 12/08/18 - Assessment and Plan (1) C. difficile colitis Current Visit: Yes Status: Acute Objective Vital Signs - Last 8 Hours Temp Pulse Resp BP Pulse Ox 12/08/18 14:30 97.9 F 96 17 115/76 97 12/08/18 11:23 98.1 F 98 17 110/74 95 Intake and Output 12/08/18 12/08/18 12/08/18 07:59 15:59 23:59 Intake Total 2760 / 5260 2500 / 5260 Output Total 1450 / 1775 325 / 1775 Balance 1310 / 3485 2175 / 3485 Intake: IV Fluids 2760 / 3960 1200 / 3960 0.9 % Sodium Chloride 1,000 ML 1000 / 1000 @ 125 mls/hr IVC .Q8H [facility] Rx#: [id number] KCl 20mEq IN D5%-0.45 NACL 20 1000 / 2000 1000 / 2000 meq In 1,000 ml @ 100 mls/hr IVC .Q10H [facility] Rx#:[id number] Ofirmev 1,000 mg/100 ml 1,000 200 / 300 100 / 300 mg In 100 ml @ 400 mls/hr IVPB Q6HR [facility] Rx#:[id number] Cipro Premix 400 MG/200 ML 400 200 / 200 mg In 200 ml @ 200 mls/hr IVPB Q12HR [facility] Rx#:[id number] Flagyl Premix 500 MG/100 ML 500 100 / 200 100 / 200 mg In 100 ml @ 100 mls/hr IVPB Q8HR [facility] Rx#:[id number] Potassium Phosphate 44 MEQ In 0 260 / 260 .9 % Sodium Chloride 250 ML @ 40 mls/hr IVPB ONCE ONE Rx#: [id number] Oral 0 / 1300 1300 / 1300 Output: Stool 25 / 25 Catheter 1450 / 1750 300 / 1750 Other: Meal clears Percent of Meal Consumed 100% - Labs 12/08/18 01:30 12/08/18 01:30 Diabetes panel 12/08/18 Range/Units 01:30 Sodium 134 L (136-145) mEq/L Potassium 3.1 L (3.5-5.1) mEq/L Chloride 107 (98-107) mEq/L Carbon Dioxide 21 L (23-29) mEq/L BUN 11 (6-20) mg/dL Creatinine 0.53 L (0.70-1.30) mg/dL Glucose 129 H (70-105) mg/dL Calcium 7.8 L (8.6-10.3) mg/dL Calcium panel 12/08/18 Range/Units 01:30 Calcium 7.8 L (8.6-10.3) mg/dL Phosphorus 2.1 L (2.7-4.5) mg/dL Pituitary panel 12/08/18 Range/Units 01:30 Sodium 134 L (136-145) mEq/L Potassium 3.1 L (3.5-5.1) mEq/L Chloride 107 (98-107) mEq/L Carbon Dioxide 21 L (23-29) mEq/L BUN 11 (6-20) mg/dL Creatinine 0.53 L (0.70-1.30) mg/dL Glucose 129 H (70-105) mg/dL Calcium 7.8 L (8.6-10.3) mg/dL Adrenal panel 12/08/18 Range/Units 01:30 Sodium 134 L (136-145) mEq/L Potassium 3.1 L (3.5-5.1) mEq/L Chloride 107 (98-107) mEq/L Carbon Dioxide 21 L (23-29) mEq/L BUN 11 (6-20) mg/dL Creatinine 0.53 L (0.70-1.30) mg/dL Glucose 129 H (70-105) mg/dL Calcium 7.8 L (8.6-10.3) mg/dL - Attending Attestation patient seen and examined. i have reviewed all labs, imaging, and notes. i have discussed the case in detail with the ELECTRONICS LEAD. I agree with the above assessment and plan and wish to add the following... 53M s/p APR with repair of membranous urethra 2/2 rectal ca now with c. diff; wbc wnl; abd still distended; tolerating clears; adv to FLD cont abx activity as tolerated bowel regimen reassess in AM
[2018-12-08] MEDS ORDERED: Potassium Chloride 40 MEQ, Lidocaine 1% 2 ML in D5% in Water 500 ML IVPB ONE (16:30)
[2018-12-08] MEDS ORDERED: *HR* FentaNYL (PF) 100 MCG/2 ML VIAL IVP PRN (16:46)
--- NOTE | 2018-12-08 18:00 | Oncology Inp Progress Note ---
<Asif Hawley - Last Filed: 12/08/18 18:04> Date of Encounter: 12/08/18 Oncology: Obj Data - Labs CBC & Chem 7: 12/08/18 01:30 12/08/18 01:30 Consult Discharge Plan - Plan Referrals: Nikita Lawrence MD [Primary Care Provider] - Inpatient Charges Provider: Dr. Ayo Hawley Follow up - Inpatient: [id number] - Attending Attestation I examined this patient and my medical decision-making was reviewed with the Advanced Practice Nurse. I agree with the documented findings, disposition and treatment plan as described except to the extent set forth below. Patient with rectal cancer s/p neoadjuvant chemoradiation and APR now p/w C. Diff Colitis Currently on PO Vancomycin and IV Flagyl. He states diarrhea is improving. Will resume adjuvant chemotherapy once he is stable and seen in our clinic. <Fidelina Lux Marvin - Last Filed: 12/09/18 18:57> Date of Encounter: 12/08/18 Time of Encounter: 16:45 (1) Rectal cancer Current Visit: No Status: Acute Assessment and plan: Diagnosis: Stage I (ypT2 ypNx), moderately differentiated adenocarcinoma, Grade 2. LVI-, PNI-, Margins negative. Tumor size 4.5 x 2.5 x 0.5 cm. cT3-T4b, cN2a, M0 invasive, moderately to poorly differentiated rectal Adenocarcinoma s/p laparoscopic APR 09/21/18 with colostomy creation, preop p lacement of b/l ureteral stents and placement of suprapubic cath by urology, and repair of iatrogenic prostatic urethra by urology. Treatment summary: Completed neoadjuvant chemoradiation with Capecitabine for 6 weeks. Adjuvant chemotherapy plan (CapOx every 21 Days) Oxaliplatin Day 1 Capecitabine (Xeloda) 1500 mg PO BID on Days 1-14 then 7 days off. planned for 4.5 months of adjuvant therapy. Anemia: Hgb 9.4 Iron 15, saturation 11%, ferritin 291 LDH 102 TSH: WNL Plan: Treatment on hold during hospitalization and treatment for c. diff colitis. Patient was provided with [facility] oncology center appointment calendar. (2) C. difficile colitis Current Visit: Yes Status: Acute Assessment and plan: Continue Vancomycin and Flagyl per primary team Oncology: Subj Interval history: Luis Fernando is awake and alert, sitting on the edge of the bed this afternoon. is at bedside. He notes feeling better today. Loose stools have slowed. He continues on Flagyl and vancomycin. Denies fever or chills. - ENT ENT exam: Present: mucous membranes moist - Respiratory Respiratory exam: Present: decreased breath sounds. Absent: rales, rhonchi, wheezes - Cardiovascular Cardiovascular exam: Present: RRR - GI/Abdominal GI/Abdominal exam: Present: normal bowel sounds. Absent: tenderness - Extremities Exam Extremities exam: Present: pedal edema - Neurological Exam Neurological exam: Present: alert, oriented X3 - Psychiatric Psychiatric exam: Present: normal affect, normal mood - Skin Skin exam: Present: pallor Oncology: Obj Data - Labs CBC & Chem 7: 12/09/18 10:40 12/09/18 10:40
[2018-12-08] MEDS ORDERED: Isovue-370 500 ML BOTTLE IVP ONE (18:20)
[2018-12-09] MEDS: Ketorolac 15 MG/ML VIAL IVP SCH ×3 (05:48→17:45)
[2018-12-09] MEDS: *HR* Heparin 5,000 UNIT/ML VIAL SQ SCH ×2 (05:48→17:45)
[2018-12-09] MEDS: D5% in 0.45% NACL w KCl 20 MEQ/1,000 ML MLS IVC SCH (05:58)
[2018-12-09] MEDS: MetroNIDAZOLE 500 MG/100 ML 500 MG/100 ML BAG IVPB SCH ×2 (09:46→16:29)
[2018-12-09] MEDS: Pantoprazole 40 MG VIAL IVP SCH (09:46)
[2018-12-09] MEDS: Vancomycin Oral Soln 125 MG/2.5 ML UDC PO SCH ×4 (09:46→20:36)
[2018-12-09 10:55] LABS: Basophils % 0.6 %; Eosinophils # 0.2 K/mcL (0.0-0.6); Eosinophils % 2.1 %; Hematocrit 32.2 % (37.5-50.1); Hemoglobin 10.3 g/dL (12.9-16.9); Lymphocytes # 0.6 K/mcL (0.6-4.6); Lymphocytes % 7.8 %; Mean Corpuscular Hemoglobin 26.5 pg (28.0-33.3); Mean Platelet Volume 8.4 fL (9.4-12.4); Monocytes # 0.6 K/mcL (0.0-1.3); Monocytes % 8.7 %; Neutrophils # 5.7 K/mcL (1.6-8.9); Platelet Count 383 K/mcL (140-400); Red Blood Count 3.88 M/mcL (4.19-5.50); Red Cell Distribution Width 19.5 % (11.5-14.5); Segmented Neutrophils % 79.8 %; White Blood Count 7.1 K/mcL (4.3-11.1)
[2018-12-09 11:23] LABS: BUN/Creatinine Ratio 7 (6-26); Blood Urea Nitrogen 4 mg/dL (6-20); Calcium 8.1 mg/dL (8.6-10.3); Carbon Dioxide 23 mEq/L (23-29); Chloride 107 mEq/L (98-107); Glucose 116 mg/dL (70-105); Magnesium 1.7 mg/dL (1.6-2.6); Osmolality,Calculated 280 (280-300); Phosphorous 2.6 mg/dL (2.7-4.5); Potassium 3.6 mEq/L (3.5-5.1); Sodium 136 mEq/L (136-145); eGFR For African Americans > 60 (> 60); eGFR For Non-African Americans > 60 (> 60)
--- NOTE | 2018-12-09 13:46 | AcuteCareSurgery Progress Note ---
Date of Encounter: 12/09/18 Time of Encounter: 13:44 - Assessment and Plan (1) C. difficile colitis Current Visit: Yes Status: Acute 53M s/p lap APR with repair of membranous urethra with recent antibiotic administration now with C. diff colitis; currently on PO vanc and IV flagyl; WBC trending down, less pain, tolerating limited clears; abd distended, but ostomy is functioning; cont with current diet DVT prophylaxis SLIV as he is tolerating PO cont IV abx (although WBC improving, there is more fluid - i suspect that it is in relation to his c. diff colitis) replace electrolytes (hypomagenesemia, hypophosphatemia) AM labs IV lasix 2/2 fluid overload activity as tolerated bowel regimen: mineral oil, miralax Subjective Patient reports: no new complaints, other (afebrile, but still with persistent abdominal distension and with lower extremity edema; CT scan now with pleural effusion, fluid above the liver, ) Objective Vital Signs - Last 8 Hours Temp Pulse Resp BP Pulse Ox 12/09/18 11:09 97.9 F 99 14 112/79 95 12/09/18 07:15 98.1 F 100 16 90/64 93 Intake and Output 12/08/18 12/09/18 12/09/18 23:59 07:59 15:59 Intake Total 1280 / 6540 1300 / 1400 100 / 1400 Output Total 700 / 2475 650 / 1100 450 / 1100 Balance 580 / 4065 650 / 300 -350 / 300 Intake: IV Fluids 300 / 4260 1300 / 1400 100 / 1400 KCl 20mEq IN D5%-0.45 NACL 20 1000 / 1000 meq In 1,000 ml @ 100 mls/hr IVC .Q10H [facility] Rx#:[id number] Cipro Premix 400 MG/200 ML 400 200 / 400 200 / 200 mg In 200 ml @ 200 mls/hr IVPB Q12HR [facility] Rx#:[id number] Flagyl Premix 500 MG/100 ML 500 100 / 300 100 / 200 100 / 200 mg In 100 ml @ 100 mls/hr IVPB Q8HR [facility] Rx#:[id number] Oral 980 / 2280 0 / 0 0 / 0 Output: Urine 700 / 700 0 / 0 0 / 0 Stool 0 / 25 0 / 0 Catheter 0 / 1750 650 / 1100 450 / 1100 Other: Weight 61.5 kg Patient Weight 12/09/18 23:59 Weight 61.5 kg - General physical appearance no distress - Respiratory normal expansion, normal respiratory effort - Cardiovascular Cardiovascular exam: Present: RRR - Abdomen Abdomen: Present: soft, distended (softer and less distened; ) - Rectum other (pink, viable, functioning) - Neurologic CN 2-12 grossly intact - Psychiatric oriented to time, oriented to person, oriented to place - Labs 12/09/18 10:40 12/09/18 10:40 Diabetes panel 12/09/18 Range/Units 10:40 Sodium 136 (136-145) mEq/L Potassium 3.6 (3.5-5.1) mEq/L Chloride 107 (98-107) mEq/L Carbon Dioxide 23 (23-29) mEq/L BUN 4 L (6-20) mg/dL Creatinine 0.57 L (0.70-1.30) mg/dL Glucose 116 H (70-105) mg/dL Calcium 8.1 L (8.6-10.3) mg/dL Calcium panel 12/09/18 Range/Units 10:40 Calcium 8.1 L (8.6-10.3) mg/dL Phosphorus 2.6 L (2.7-4.5) mg/dL Pituitary panel 12/09/18 Range/Units 10:40 Sodium 136 (136-145) mEq/L Potassium 3.6 (3.5-5.1) mEq/L Chloride 107 (98-107) mEq/L Carbon Dioxide 23 (23-29) mEq/L BUN 4 L (6-20) mg/dL Creatinine 0.57 L (0.70-1.30) mg/dL Glucose 116 H (70-105) mg/dL Calcium 8.1 L (8.6-10.3) mg/dL Adrenal panel 12/09/18 Range/Units 10:40 Sodium 136 (136-145) mEq/L Potassium 3.6 (3.5-5.1) mEq/L Chloride 107 (98-107) mEq/L Carbon Dioxide 23 (23-29) mEq/L BUN 4 L (6-20) mg/dL Creatinine 0.57 L (0.70-1.30) mg/dL Glucose 116 H (70-105) mg/dL Calcium 8.1 L (8.6-10.3) mg/dL - VTE Reasons for not Prescribing Prophylaxis: Treatment not Indicated - Low risk for VTE Consult Discharge Plan - Plan Referrals: Nikita Lawrence MD [Primary Care Provider] -
[2018-12-09] MEDS ORDERED: Furosemide 20 MG/2 ML VIAL IVP ONE (13:48)
[2018-12-09] MEDS ORDERED: Potassium Phosphate 44 MEQ in 0.9 % Sodium Chloride 250 ML IVPB ONE (13:49)
[2018-12-10] MEDS: MetroNIDAZOLE 500 MG/100 ML 500 MG/100 ML BAG IVPB SCH ×3 (00:04→18:15)
[2018-12-10] MEDS: Ketorolac 15 MG/ML VIAL IVP SCH ×4 (00:04→18:22)
[2018-12-10] MEDS ORDERED: Furosemide 20 MG/2 ML VIAL IVP ONE ×2 (03:28→12:38)
[2018-12-10] MEDS: *HR* Heparin 5,000 UNIT/ML VIAL SQ SCH ×2 (06:32→18:22)
[2018-12-10] MEDS: Pantoprazole 40 MG VIAL IVP SCH (09:26)
[2018-12-10] MEDS: Vancomycin Oral Soln 125 MG/2.5 ML UDC PO SCH ×4 (09:26→21:43)
--- NOTE | 2018-12-10 12:42 | General Surgery Progress Note ---
Date of Encounter: 12/09/18 Time of Encounter: 12:41 - Assessment and Plan (1) C. difficile colitis Current Visit: Yes Status: Acute 53M s/p lap APR with repair of membranous urethra with recent antibiotic administration now with C. diff colitis; currently on PO vanc and IV flagyl; WBC trending down, less pain, tolerating limited clears; abd distended, but ostomy is functioning; cont with current diet DVT prophylaxis SLIV as he is tolerating PO cont IV abx (although WBC improving, there is more fluid - i suspect that it is in relation to his c. diff colitis) replace electrolytes (hypomagenesemia, hypophosphatemia) AM labs IV lasix 2/2 fluid overload activity as tolerated bowel regimen: mineral oil, miralax Subjective Patient reports: no new complaints, feels better, pain is less, flatus, diarrhea, afebrile Objective Vital Signs - Last 8 Hours Temp Pulse Resp BP Pulse Ox 12/10/18 10:53 97.6 F 101 14 107/73 94 12/10/18 07:58 97.6 F 97 14 113/77 94 12/10/18 04:42 98.1 F 93 16 97/66 92 Intake and Output 12/09/18 12/10/18 12/10/18 23:59 07:59 15:59 Intake Total 620 / 2380 360 / 580 220 / 580 Output Total 2150 / 3250 1400 / 1550 150 / 1550 Balance -1530 / -870 -1040 / -970 70 / -970 Intake: IV Fluids 500 / 1900 360 / 460 100 / 460 KCl 20mEq IN D5%-0.45 NACL 20 400 / 1400 meq In 1,000 ml @ 100 mls/hr IVC .Q10H [facility] Rx#:[id number] Flagyl Premix 500 MG/100 ML 500 100 / 300 100 / 200 100 / 200 mg In 100 ml @ 100 mls/hr IVPB Q8HR [facility] Rx#:[id number] Potassium Phosphate 44 MEQ In 0 260 / 260 .9 % Sodium Chloride 250 ML @ 40 mls/hr IVPB ONCE ONE Rx#: [id number] Oral 120 / 480 120 / 120 Output: Urine 300 / 300 Stool 400 / 400 650 / 800 150 / 800 Catheter 1750 / 2850 450 / 450 Other: Meal Breakfast Percent of Meal Consumed 0% Stool Consistency loose soft Stool Color Brown Brown Weight 61.4 kg Patient Weight 12/10/18 23:59 Weight 61.4 kg - General physical appearance no distress - Respiratory normal expansion, normal respiratory effort - Cardiovascular Cardiovascular exam: Present: RRR - Abdomen Abdomen: Present: soft, distended - Rectum other (colostomy functioning) - Integumentary no rash, other ((+)edema) - Neurologic CN 2-12 grossly intact - Musculoskeletal normal posture - Psychiatric oriented to time, oriented to person - Labs 12/09/18 10:40 12/09/18 10:40 - VTE Reasons for not Prescribing Prophylaxis: Treatment not Indicated - Low risk for VTE Consult Discharge Plan - Plan Referrals: Nikita Lawrence MD [Primary Care Provider] -
--- NOTE | 2018-12-10 12:44 | General Surgery Progress Note ---
Date of Encounter: 12/10/18 Time of Encounter: 12:42 - Assessment and Plan (1) C. difficile colitis Current Visit: Yes Status: Acute 53M s/p lap APR with repair of membranous urethra with recent antibiotic administration now with C. diff colitis; currently on PO vanc and IV flagyl; WBC trending down, less pain, tolerating limited clears; abd distended, but ostomy is functioning; advance to soft diet DVT prophylaxis cont IV abx labsr - eplace electrolytes (hypomagenesemia, hypophosphatemia) IV lasix 2/2 fluid overload activity as tolerated bowel regimen: mineral oil, miralax Subjective Patient reports: no new complaints Objective Vital Signs - Last 8 Hours Temp Pulse Resp BP Pulse Ox 12/10/18 10:53 97.6 F 101 14 107/73 94 12/10/18 07:58 97.6 F 97 14 113/77 94 Intake and Output 12/09/18 12/10/18 12/10/18 23:59 07:59 15:59 Intake Total 620 / 2380 360 / 580 220 / 580 Output Total 2150 / 3250 1400 / 1550 150 / 1550 Balance -1530 / -870 -1040 / -970 70 / -970 Intake: IV Fluids 500 / 1900 360 / 460 100 / 460 KCl 20mEq IN D5%-0.45 NACL 20 400 / 1400 meq In 1,000 ml @ 100 mls/hr IVC .Q10H [facility] Rx#:[id number] Flagyl Premix 500 MG/100 ML 500 100 / 300 100 / 200 100 / 200 mg In 100 ml @ 100 mls/hr IVPB Q8HR [facility] Rx#:[id number] Potassium Phosphate 44 MEQ In 0 260 / 260 .9 % Sodium Chloride 250 ML @ 40 mls/hr IVPB ONCE ONE Rx#: [id number] Oral 120 / 480 120 / 120 Output: Urine 300 / 300 Stool 400 / 400 650 / 800 150 / 800 Catheter 1750 / 2850 450 / 450 Other: Meal Breakfast Percent of Meal Consumed 0% Stool Consistency loose soft Stool Color Brown Brown Weight 61.4 kg Patient Weight 12/10/18 23:59 Weight 61.4 kg - General physical appearance no distress - Respiratory normal expansion, normal respiratory effort - Cardiovascular Cardiovascular exam: Present: RRR - Abdomen Abdomen: Present: soft, distended (significantly less distended) - Integumentary other ((1+) edema) - Neurologic CN 2-12 grossly intact - Psychiatric oriented to time, oriented to person, oriented to place - Labs 12/09/18 10:40 12/09/18 10:40 - VTE Reasons for not Prescribing Prophylaxis: Treatment not Indicated - Low risk for VTE Consult Discharge Plan - Plan Referrals: Nikita Lawrence MD [Primary Care Provider] -
[2018-12-10 15:06] LABS: BUN/Creatinine Ratio 9 (6-26); Blood Urea Nitrogen 6 mg/dL (6-20); Calcium 8.7 mg/dL (8.6-10.3); Carbon Dioxide 29 mEq/L (23-29); Chloride 105 mEq/L (98-107); Glucose 111 mg/dL (70-105); Osmolality,Calculated 284 (280-300); Phosphorous 3.5 mg/dL (2.7-4.5); Potassium 3.9 mEq/L (3.5-5.1); Sodium 138 mEq/L (136-145); eGFR For African Americans > 60 (> 60); eGFR For Non-African Americans > 60 (> 60)
[2018-12-11] MEDS: *HR* Heparin 5,000 UNIT/ML VIAL SQ SCH (05:37)
[2018-12-11 06:51] VITALS: BP 106/68
--- NOTE | 2018-12-11 09:05 | Discharge Summary ---
<Jeanne Gross Zeynep - Last Filed: 12/11/18 09:12> Date of Encounter: 12/11/18 Time of Encounter: 07:45 - Discharge Diagnosis (1) C. difficile colitis Priority: Primary Status: Resolved (2) Rectal cancer Priority: Secondary Status: Chronic (3) UTI (urinary tract infection) Priority: Secondary Status: Acute Qualifiers: Urinary tract infection type: site unspecified Hematuria presence: without hematuria Qualified Code(s): N39.0 - Urinary tract infection, site not specified (4) Hypokalemia Priority: Secondary Status: Resolved General Surgery Exam Initial Vital Signs Temp Pulse Resp BP Pulse Ox 97.8 F 103 18 106/65 97 12/03/18 18:29 12/03/18 18:29 12/03/18 18:29 12/03/18 18:29 12/03/18 18:29 - General physical appearance no distress, chronically ill - Respiratory normal expansion, normal respiratory effort - Cardiovascular Cardiovascular exam: Present: RRR - Abdomen Abdomen general surgery: Present: bowel sounds present, soft, non tender, wound (stomapink and moist, patent) - Integumentary Integumentary general surgery: Present: warm and dry - Neurologic Present: normal sensation - Musculoskeletal Present: normal posture - Psychiatric Psychiatric general surgery: Present: A&Ox3 - Hospital Course Hospital course: Mr. Moscoso is a 53 year old male who was admitted on 12/04/2018 for colitis. He was found to have C diff. He was treated appropriately with IV metronidazole and vancomycin (both oral and enema). Electrolyte imbalance was appropriately corrected. He was also found to have a urinary tract infection for which he was treated with ciprofloxacin IV. His abdominal discomfort has resolved, he is having bowel function, his UTI is resolved. Of note his oral chemotherapy agent was held during his hospitalization given his acute colitis. This is okay to resume per oncology as an outpatient. He is ambulating avoiding without difficulty per Oliveira and ostomy, vital signs are stable, and he is afebrile. We will begin discharge planning to home with a follow-up with Dr. Salas in approximately 3 weeks. - Time Spent with Patient Total time spent providing and/or coordinating discharge services: - Discharge Medications Prescriptions: New Vancomycin Oral Soln [Firvanq] 125 mg PO QID #18 udc metroNIDAZOLE [Flagyl] 500 mg PO TID 3 Days #9 tablet Continued Polyethylene Glycol 3350 [MiraLAX] 17 gm PO DAILY Ondansetron ODT [Zofran ODT] 4 mg SL Q4HR PRN #30 tab.rapdis PRN Reason: Nausea Ondansetron HCl [Zofran] 4 mg PO Q6HR PRN #30 tablet PRN Reason: Nausea Zolpidem [Ambien] 5 mg PO HS PRN 30 Days #30 tablet PRN Reason: Insomnia OxyCODONE Immed Rel [Roxicodone 5 MG] 5 mg PO Q6HR PRN PRN Reason: Pain OxyCODONE ER (12 HR) [OxyCONTIN] 10 mg PO Q12HR Capecitabine [Xeloda] 1,000 mg PO QPM Capecitabine [Xeloda] 1,500 mg PO BID #84 tablet Home Medications: Polyethylene Glycol 3350 [MiraLAX] 17 gm PO DAILY 07/27/18 [History] Ondansetron ODT [Zofran ODT] 4 mg SL Q4HR PRN #30 tab.rapdis 10/03/18 [Rx] Ondansetron HCl [Zofran] 4 mg PO Q6HR PRN #30 tablet 11/03/18 [Rx] Zolpidem [Ambien] 5 mg PO HS PRN 30 Days #30 tablet 11/17/18 [Rx] OxyCODONE ER (12 HR) [OxyCONTIN] 10 mg PO Q12HR 12/01/18 [History] OxyCODONE Immed Rel [Roxicodone 5 MG] 5 mg PO Q6HR PRN 12/01/18 [History] Capecitabine [Xeloda] 1,000 mg PO QPM 12/04/18 [History] Capecitabine [Xeloda] 1,500 mg PO BID #84 tablet 12/05/18 [Rx] Vancomycin Oral Soln [Firvanq] 125 mg PO QID #18 udc 12/11/18 [Rx] metroNIDAZOLE [Flagyl] 500 mg PO TID 3 Days #9 tablet 12/11/18 [Rx] Allergies/Adverse Reactions: Allergy/AdvReac Type Severity Reaction Status Date / Time No Known Allergies Allergy Verified 12/04/18 16:41 Date of admission: 12/07/18 17:31 Primary care physician: Nikita Lawrence MD Consults: 12/05/18 15:26 Consult to Oncology [CONS] Routine Consulting Provider: [facility] Reason for Consult: Chemo recommendations in the setting of c-diff colitis Time Notified: 15:27 Call Completed: No Discharging clinician: Tank Salas (Juan Gross) Anticipated date of discharge: 12/11/18 Labs on day of discharge: Labs from last 24 hours 12/10/18 14:28 Sodium 138 Potassium 3.9 Chloride 105 Carbon Dioxide 29 BUN 6 Creatinine 0.66 L Est GFR ( Amer) > 60 Est GFR (Non-Af Amer) > 60 BUN/Creatinine Ratio 9 Glucose 111 H Calculated Osmolality 284 Calcium 8.7 Phosphorus 3.5 Magnesium 2.0 - Impressions ITS Impressions Abdomen/Pelvis CT 12/03/18 19:11 IMPRESSION: 1. Perianal abscess much smaller than on prior exam 11/06/2018. 2. Persistent but overall decreased inflammatory changes in the pelvis including markedly thick-walled enhancing urinary bladder. 3. Interval development of findings of acute colitis descending colon. This may be on an infectious, inflammatory or reactive basis. 4. Moderate volume fecal debris may reflect constipation. 5. Left upper quadrant colostomy. 6. Possible cholelithiasis versus gallbladder stand. D/ / Benoit Carrera / Benoit Carrera Interpreting Provider: Benoit Carrera Chest/Abdomen X-ray 12/08/18 16:42 IMPRESSION: High-grade distal partial small bowel obstruction No acute process within the chest D/ / Jens Toth MD / Jens Toth MD Interpreting Provider: Jens Toth MD Abdomen/Pelvis CT 12/08/18 22:00 IMPRESSION: There is diffuse fluid-filled and gaseous dilation of the small bowel to the level of the distal ileum, where zone of transition is found. Obstruction is primarily considered, though severe ileus remains in differential. Serial radiographic follow-up may be helpful to evaluate progression of the oral contrast that has already been ingested. Continued mural thickening of the descending colon compatible with colitis, similar to decreased when compared to the previous exam. Redemonstration of perirectal abscess, similar when compared to the previous exam. There is overall marked increased anasarca, with bilateral pleural effusions, moderate volume ascites, and diffuse subcutaneous edema. Redemonstration of a moderate to large amount of fecal debris, which may suggest constipation. D/ / Nicolas Francois MD / Nicolas Franocis MD Interpreting Provider: Nicolas Francois MD X-Ray 12/09/18 09:54 IMPRESSION: There is no definitive contrast noted in the visualized bowel loops. Disproportionate bowel distention suggesting diffuse ileus or partial obstruction. D/ / Vinh Garrido / Vinh Garrido Interpreting Provider: Vinh Garrido - Patient Status Disposition: Home, Self-Care Condition: Good Functional capacity at discharge: independent ambulation Overall status at discharge: patient is progressing back to baseline - Discharge Instructions Instructions: Clostridium Difficile Infection (DC), Infectious Colitis (GEN) Follow Up With: Tank Salas MD [Non-Partnered Physician] - 01/03/19 8:55 am Additional Instructions: Take your antibiotics as directed. Continue your previous regimen including your chronic pain medications and MiraLAX daily. Follow-up as directed. Do not drink alcohol while taking metronidazole. Drinking alcohol while taking metronidazole can result in violent abdominal pain and vomiting. Refrain from alcohol use for 48 hours after completing metronidazole. - Diet and Activity Activity: increase activity as tolerated Diet: advance to your usual diet <Tank Salas - Last Filed: 12/11/18 16:35> Date of Encounter: 12/11/18 - Discharge Diagnosis (1) C. difficile colitis Status: Resolved General Surgery Exam Initial Vital Signs Temp Pulse Resp BP Pulse Ox 97.8 F 103 18 106/65 97 12/03/18 18:29 12/03/18 18:29 12/03/18 18:29 12/03/18 18:29 12/03/18 18:29 - Hospital Course Hospital course: Mr. Moscoso is a 53 year old male - Time Spent with Patient Total time spent providing and/or coordinating discharge services: Date of admission: 12/07/18 17:31 Primary care physician: Nikita Lawrence MD Consults: 12/05/18 15:26 Consult to Oncology [CONS] Routine Consulting Provider: [facility] Reason for Consult: Chemo recommendations in the setting of c-diff colitis Time Notified: 15:27 Call Completed: No - Impressions ITS Impressions Abdomen/Pelvis CT 12/03/18 19:11 IMPRESSION: 1. Perianal abscess much smaller than on prior exam 11/06/2018. 2. Persistent but overall decreased inflammatory changes in the pelvis including markedly thick-walled enhancing urinary bladder. 3. Interval development of findings of acute colitis descending colon. This may be on an infectious, inflammatory or reactive basis. 4. Moderate volume fecal debris may reflect constipation. 5. Left upper quadrant colostomy. 6. Possible cholelithiasis versus gallbladder stand. D/ / Benoit Carrera / Benoit Carrera Interpreting Provider: Benoit Carrera Chest/Abdomen X-ray 12/08/18 16:42 IMPRESSION: High-grade distal partial small bowel obstruction No acute process within the chest D/ / Jens Toth MD / Jens Toth MD Interpreting Provider: Jens Toth MD Abdomen/Pelvis CT 12/08/18 22:00 IMPRESSION: There is diffuse fluid-filled and gaseous dilation of the small bowel to the level of the distal ileum, where zone of transition is found. Obstruction is primarily considered, though severe ileus remains in differential. Serial radiographic follow-up may be helpful to evaluate progression of the oral contrast that has already been ingested. Continued mural thickening of the descending colon compatible with colitis, similar to decreased when compared to the previous exam. Redemonstration of perirectal abscess, similar when compared to the previous exam. There is overall marked increased anasarca, with bilateral pleural effusions, moderate volume ascites, and diffuse subcutaneous edema. Redemonstration of a moderate to large amount of fecal debris, which may suggest constipation. D/ / Nicolas Francois MD / Nicolas Francois MD Interpreting Provider: Nicolas Francois MD X-Ray 12/09/18 09:54 IMPRESSION: There is no definitive contrast noted in the visualized bowel loops. Disproportionate bowel distention suggesting diffuse ileus or partial obstruction. D/ / Vinh Garrido / Vinh Garrido Interpreting Provider: Vinh Garrido - Attending Attestation patient seen and examined. i have reviewed all labs, imaging, and notes. I agree with the above assessment and plan.
[2018-12-11] MEDS: Vancomycin Oral Soln 125 MG/2.5 ML UDC PO SCH (09:10)
--- NOTE | 2018-12-11 09:34 | Event Note ---
Date of Encounter: 12/11/18 Time of Encounter: 09:33 Perineum sutures removed
== END 2018-12-11 13:00 | disposition home or self-care (01) | DRG 248 ==
LOC: EMEROOARM 18:28 → 3NENU 18:28 → CDU 12-04 13:04 → 3ANU 12-05 18:27
PROVIDERS: ADMIT Surgery; ATTEND Surgery

== ENCOUNTER 2019-02-18 16:10 | Inpatient (IN) ==
[2019-02-18] MEDS ORDERED: 0.9 % Sodium Chloride 1,000 ML IVC ONE (16:29)
[2019-02-18] MEDS ORDERED: Gentamicin 240 MG in 0.9 % Sodium Chloride 100 ML IVPB ONE (16:33)
[2019-02-18] MEDS ORDERED: 0.9 % Sodium Chloride 500 ML IVC ONE (16:40)
[2019-02-18 17:08] LABS: Basophils % 0.2 %; Immature Granulocytes % 0.9 % (0-4); Mean Platelet Volume 9.1 fL (9.4-12.4)
[2019-02-18 17:09] LABS: Basophils # 0.1 K/mcL (0.0-0.2); Hematocrit 34.1 % (37.5-50.1); Hemoglobin 11.4 g/dL (12.9-16.9); Lymphocytes # 0.4 K/mcL (0.6-4.6); Lymphocytes % 1.5 %; Mean Corpuscular HGB Conc 33.4 g/dL (31.6-35.5); Mean Corpuscular Volume 86.8 fL (83.0-100.0); Monocytes # 1.8 K/mcL (0.0-1.3); Monocytes % 6.8 %; Platelet Count 177 K/mcL (140-400); Red Blood Count 3.93 M/mcL (4.19-5.50); Red Cell Distribution Width 22.4 % (11.5-14.5); Segmented Neutrophils % 90.6 %; White Blood Count 27.1 K/mcL (4.3-11.1)
[2019-02-18 17:10] LABS: Neutrophils # 24.6 K/mcL (1.6-8.9)
[2019-02-18 17:26] LABS: INR 1.3; Prothrombin Time 14.5 Seconds (9.4-12.1)
[2019-02-18 17:29] LABS: Activated Partial Thrombo Time 34.2 Seconds (26.0-36.0); Alanine Aminotransferase 25 Units/L (7-52); Albumin 3.7 g/dL (3.5-5.7); Albumin/Globulin Ratio 1.5 (1.1-2.2); Alkaline Phosphatase 74 Units/L (34-104); Aspartate Amino Transferase 30 Units/L (13-39); BUN/Creatinine Ratio 21 (6-26); Bilirubin,Direct 0.2 mg/dL (0.0-0.2); Bilirubin,Indirect 0.5 mg/dL (0.0-1.2); Bilirubin,Total 0.7 mg/dL (0.3-1.0); Blood Urea Nitrogen 15 mg/dL (6-20); Carbon Dioxide 22 mEq/L (23-29); Chloride 106 mEq/L (98-107); Globulin 2.5 g/dL (2.4-3.5); Glucose 115 mg/dL (70-105); Magnesium 1.3 mg/dL (1.6-2.6); Osmolality,Calculated 274 (280-300); Phosphorous 2.2 mg/dL (2.7-4.5); Potassium 3.1 mEq/L (3.5-5.1); Sodium 131 mEq/L (136-145); Total Protein 6.2 g/dL (6.4-8.9); Troponin I < 0.03 ng/mL (< 0.04); eGFR For African Americans > 60 (> 60); eGFR For Non-African Americans > 60 (> 60)
[2019-02-18] MEDS ORDERED: Ondansetron ODT 4 MG TAB.RAPDIS SL PRN (17:30)
[2019-02-18] MEDS ORDERED: *HR* Promethazine 25 MG/ML VIAL IVP PRN (17:30)
[2019-02-18] MEDS ORDERED: Naloxone 0.4 MG/ML INJ IVP PRN (17:30)
[2019-02-18 17:35] LABS: Platelet Estimate Normal (Normal)
[2019-02-18] MEDS: Acetaminophen 325 MG TABLET PO PRN (17:45)
[2019-02-18 17:52] LABS: Bilirubin,Urine Negative (Negative); Blood,Urine Large (Negative); Clarity,Urine Turbid (Clear); Color,Urine Yellow (Yellow); Glucose,Urine (UA) Normal (Normal); Ketones,Urine Negative (Negative); Leukocyte Esterase,Urine Large (Negative); Nitrite,Urine Negative (Negative); Protein,Urine 100 mg/dL (Neg-Trace); Specific Gravity,Urine 1.018 (1.010-1.025); Urobilinogen,Urine Normal (Normal)
[2019-02-18 18:03] LABS: WBC,Urine TNTC per hpf (0-3)
[2019-02-18 18:04] LABS: Bacteria,Urine Moderate per hpf (None-Few); Calcium Oxalate Crystals,Urine Present
[2019-02-18 18:05] LABS: Yeast,Urine Few per hpf (None Seen)
[2019-02-18] MEDS ORDERED: Norepinephrine 4 MG in 0.9 % Sodium Chloride 250 ML IVC SCH (19:15)
[2019-02-18] MEDS ORDERED: Gentamicin 1 EACH in 0.9 % Sodium Chloride 100 ML IVPB PRN (20:00)
[2019-02-18] MEDS ORDERED: *HR* OxyCODONE Immed Rel 5 MG TABLET PO PRN (20:06)
[2019-02-18] MEDS ORDERED: NON-FORMULARY MEDICATION 1 EACH EACH (Ondansetron Hcl [Zofran] 4 MG) PO PRN (20:06)
[2019-02-18 20:07] LABS: Basophils # 0.1 K/mcL (0.0-0.2); Basophils % 0.2 %; Hematocrit 30.6 % (37.5-50.1); Immature Granulocytes % 1.5 % (0-4); Lymphocytes # 0.5 K/mcL (0.6-4.6); Lymphocytes % 1.7 %; Mean Corpuscular HGB Conc 32.7 g/dL (31.6-35.5); Mean Corpuscular Hemoglobin 28.7 pg (28.0-33.3); Mean Corpuscular Volume 87.9 fL (83.0-100.0); Mean Platelet Volume 9.4 fL (9.4-12.4); Monocytes # 1.7 K/mcL (0.0-1.3); Monocytes % 6.3 %; Neutrophils # 23.8 K/mcL (1.6-8.9); Platelet Count 169 K/mcL (140-400); Red Blood Count 3.48 M/mcL (4.19-5.50); Red Cell Distribution Width 22.5 % (11.5-14.5); Segmented Neutrophils % 90.3 %; White Blood Count 26.4 K/mcL (4.3-11.1)
[2019-02-18] MEDS: Ringers Solution, Lactated 1,000 ML IVC SCH (20:40)
[2019-02-18 20:45] LABS: Platelet Estimate Normal (Normal)
[2019-02-18] MEDS: *HR* Heparin 5,000 UNIT/ML VIAL SQ SCH (20:49)
[2019-02-18] MEDS: Vancomycin Oral Soln 125 MG/2.5 ML UDC PO SCH (20:49)
[2019-02-18] MEDS ORDERED: *HR* Heparin 5,000 UNIT/ML VIAL SQ SCH (22:00)
[2019-02-18] MEDS: Piperacillin/Tazobactam 3.375 GM in 0.9 % Sodium Chloride Mini Bag 100 ML IVPB SCH (23:43)
[2019-02-18] MEDS: Potassium Chloride 40 MEQ/200 ML BAG IVPB PRN (23:50)
[2019-02-19 04:07] LABS: Mean Corpuscular Hemoglobin 28.9 pg (28.0-33.3); Red Blood Count 3.46 M/mcL (4.19-5.50)
[2019-02-19 04:08] LABS: Basophils % 0.1 %; Hematocrit 29.9 % (37.5-50.1); Immature Granulocytes % 3.6 % (0-4); Lymphocytes % 1.6 %; Mean Corpuscular HGB Conc 33.4 g/dL (31.6-35.5); Mean Corpuscular Volume 86.4 fL (83.0-100.0); Mean Platelet Volume 9.3 fL (9.4-12.4); Monocytes % 5.8 %; Neutrophils # 30.1 K/mcL (1.6-8.9); Platelet Count 157 K/mcL (140-400); Red Cell Distribution Width 22.5 % (11.5-14.5); Segmented Neutrophils % 88.9 %
[2019-02-19 04:10] LABS: VBG Ionized Calcium 1.25 mmol/L (1.15-1.35)
[2019-02-19] MEDS ORDERED: Potassium Phosphate 44 MEQ in 0.9 % Sodium Chloride 250 ML IVPB PRN (04:18)
[2019-02-19 04:22] LABS: Lymphocytes # 0.5 K/mcL (0.6-4.6); White Blood Count 33.9 K/mcL (4.3-11.1)
[2019-02-19 04:32] LABS: BUN/Creatinine Ratio 21 (6-26); Blood Urea Nitrogen 15 mg/dL (6-20); Calcium 8.5 mg/dL (8.6-10.3); Carbon Dioxide 20 mEq/L (23-29); Chloride 110 mEq/L (98-107); Glucose 106 mg/dL (70-105); Osmolality,Calculated 283 (280-300); Potassium 3.2 mEq/L (3.5-5.1); Sodium 136 mEq/L (136-145); eGFR For African Americans > 60 (> 60); eGFR For Non-African Americans > 60 (> 60)
[2019-02-19 04:59] LABS: Magnesium 1.6 mg/dL (1.6-2.6); Phosphorous 1.9 mg/dL (2.7-4.5)
[2019-02-19] MEDS ORDERED: Vancomycin 500 MG in 0.9 % Sodium Chloride Mini Bag 100 ML IVPB SCH ×2 (05:00→17:00)
[2019-02-19] MEDS: Ringers Solution, Lactated 1,000 ML IVC SCH (05:00)
[2019-02-19] MEDS: *HR* Heparin 5,000 UNIT/ML VIAL SQ SCH ×2 (05:00→17:01)
[2019-02-19] MEDS: Potassium Chloride 40 MEQ/200 ML BAG IVPB PRN (05:49)
[2019-02-19] MEDS ORDERED: *HR* OxyCODONE ER (12 HR) 10 MG TABLET PO SCH (06:00)
[2019-02-19] MEDS ORDERED: Ibuprofen 800 MG TABLET PO PRN (08:12)
[2019-02-19] MEDS ORDERED: Ibuprofen 400 MG TABLET PO PRN ×2 (08:30→11:37)
[2019-02-19] MEDS: Acetaminophen 325 MG TABLET PO PRN ×2 (08:47→21:20)
[2019-02-19] MEDS: Vancomycin Oral Soln 125 MG/2.5 ML UDC PO SCH (08:47)
[2019-02-19] MEDS: Piperacillin/Tazobactam 3.375 GM in 0.9 % Sodium Chloride Mini Bag 100 ML IVPB SCH ×2 (09:22→16:59)
[2019-02-19] MEDS ORDERED: Ondansetron ODT 4 MG TAB.RAPDIS SL PRN (11:37)
[2019-02-19] MEDS ORDERED: *HR* OxyCODONE Immed Rel 5 MG TABLET PO PRN (11:37)
[2019-02-19] MEDS ORDERED: Naloxone 0.4 MG/ML INJ IVP PRN (11:37)
[2019-02-19] MEDS ORDERED: *HR* Promethazine 25 MG/ML VIAL IVP PRN (11:37)
[2019-02-19] MEDS ORDERED: *HR* Heparin 5,000 UNIT/ML VIAL SQ SCH (14:00)
[2019-02-19] MEDS: *HR* OxyCODONE ER (12 HR) 10 MG TABLET PO SCH (18:09)
[2019-02-20] MEDS: *HR* Heparin 5,000 UNIT/ML VIAL SQ SCH ×4 (00:52→21:54)
[2019-02-20] MEDS: Piperacillin/Tazobactam 3.375 GM in 0.9 % Sodium Chloride Mini Bag 100 ML IVPB SCH ×2 (00:56→09:01)
[2019-02-20 05:08] LABS: Basophils # 0.1 K/mcL (0.0-0.2); Basophils % 0.2 %; Eosinophils # 0.1 K/mcL (0.0-0.6); Eosinophils % 0.6 %; Hemoglobin 9.4 g/dL (12.9-16.9); Immature Granulocytes % 1.4 % (0-4); Lymphocytes # 1.1 K/mcL (0.6-4.6); Lymphocytes % 5.2 %; Mean Corpuscular HGB Conc 33.6 g/dL (31.6-35.5); Mean Corpuscular Hemoglobin 28.7 pg (28.0-33.3); Mean Corpuscular Volume 85.4 fL (83.0-100.0); Mean Platelet Volume 9.7 fL (9.4-12.4); Monocytes # 0.7 K/mcL (0.0-1.3); Monocytes % 3.6 %; Neutrophils # 18.3 K/mcL (1.6-8.9); Platelet Count 150 K/mcL (140-400); Red Blood Count 3.28 M/mcL (4.19-5.50); Red Cell Distribution Width 22.4 % (11.5-14.5); White Blood Count 20.6 K/mcL (4.3-11.1)
[2019-02-20 05:27] LABS: BUN/Creatinine Ratio 21 (6-26); Blood Urea Nitrogen 15 mg/dL (6-20); Calcium 8.5 mg/dL (8.6-10.3); Carbon Dioxide 22 mEq/L (23-29); Chloride 106 mEq/L (98-107); Glucose 104 mg/dL (70-105); Osmolality,Calculated 277 (280-300); Potassium 3.6 mEq/L (3.5-5.1); Sodium 133 mEq/L (136-145); eGFR For African Americans > 60 (> 60); eGFR For Non-African Americans > 60 (> 60)
[2019-02-20] MEDS: *HR* OxyCODONE ER (12 HR) 10 MG TABLET PO SCH ×2 (05:54→18:23)
[2019-02-20] MEDS ORDERED: Aminoglycoside Consult 1 EACH MC ONE (08:33)
[2019-02-20] MEDS: Ringers Solution, Lactated 1,000 ML IVC SCH (18:20)
[2019-02-20] MEDS: Ampicillin 1,000 MG in 0.9 % Sodium Chloride Mini Bag 100 ML IVPB SCH (18:22)
[2019-02-20] MEDS: Acetaminophen 325 MG TABLET PO PRN (18:26)
[2019-02-21] MEDS: Ampicillin 1,000 MG in 0.9 % Sodium Chloride Mini Bag 100 ML IVPB SCH ×3 (02:25→15:03)
[2019-02-21] MEDS: *HR* Heparin 5,000 UNIT/ML VIAL SQ SCH ×3 (05:18→20:20)
[2019-02-21] MEDS: *HR* OxyCODONE ER (12 HR) 10 MG TABLET PO SCH ×2 (05:22→20:20)
[2019-02-21] MEDS: Ringers Solution, Lactated 1,000 ML IVC SCH (08:10)
[2019-02-21 10:15] LABS: Basophils % 0.3 %; Eosinophils # 0.1 K/mcL (0.0-0.6); Eosinophils % 0.9 %; Hematocrit 29.8 % (37.5-50.1); Hemoglobin 9.8 g/dL (12.9-16.9); Immature Granulocytes % 0.8 % (0-4); Lymphocytes # 0.6 K/mcL (0.6-4.6); Lymphocytes % 6.7 %; Mean Corpuscular HGB Conc 32.9 g/dL (31.6-35.5); Mean Corpuscular Hemoglobin 28.3 pg (28.0-33.3); Mean Corpuscular Volume 86.1 fL (83.0-100.0); Mean Platelet Volume 9.9 fL (9.4-12.4); Monocytes % 10.4 %; Neutrophils # 7.4 K/mcL (1.6-8.9); Platelet Count 198 K/mcL (140-400); Red Blood Count 3.46 M/mcL (4.19-5.50); Red Cell Distribution Width 21.6 % (11.5-14.5); Segmented Neutrophils % 80.9 %
[2019-02-21 10:16] LABS: White Blood Count 9.1 K/mcL (4.3-11.1)
[2019-02-21 10:32] LABS: BUN/Creatinine Ratio 12 (6-26); Blood Urea Nitrogen 8 mg/dL (6-20); Calcium 8.5 mg/dL (8.6-10.3); Carbon Dioxide 25 mEq/L (23-29); Chloride 104 mEq/L (98-107); Glucose 162 mg/dL (70-105); Osmolality,Calculated 274 (280-300); Potassium 3.5 mEq/L (3.5-5.1); Sodium 131 mEq/L (136-145); eGFR For African Americans > 60 (> 60); eGFR For Non-African Americans > 60 (> 60)
[2019-02-22] MEDS: Ampicillin 1,000 MG in 0.9 % Sodium Chloride Mini Bag 100 ML IVPB SCH ×2 (00:25→04:54)
[2019-02-22 03:40] LABS: Basophils % 0.5 %; Eosinophils # 0.2 K/mcL (0.0-0.6); Eosinophils % 2.1 %; Hematocrit 28.5 % (37.5-50.1); Hemoglobin 9.4 g/dL (12.9-16.9); Immature Granulocytes % 0.4 % (0-4); Lymphocytes # 0.9 K/mcL (0.6-4.6); Lymphocytes % 11.9 %; Mean Corpuscular Hemoglobin 28.9 pg (28.0-33.3); Mean Corpuscular Volume 87.7 fL (83.0-100.0); Mean Platelet Volume 9.1 fL (9.4-12.4); Monocytes # 0.9 K/mcL (0.0-1.3); Monocytes % 11.4 %; Neutrophils # 5.5 K/mcL (1.6-8.9); Platelet Count 212 K/mcL (140-400); Red Blood Count 3.25 M/mcL (4.19-5.50); Red Cell Distribution Width 21.3 % (11.5-14.5); Segmented Neutrophils % 73.7 %; White Blood Count 7.5 K/mcL (4.3-11.1)
[2019-02-22 03:58] LABS: BUN/Creatinine Ratio 17 (6-26); Blood Urea Nitrogen 11 mg/dL (6-20); Calcium 8.6 mg/dL (8.6-10.3); Carbon Dioxide 24 mEq/L (23-29); Chloride 104 mEq/L (98-107); Glucose 97 mg/dL (70-105); Osmolality,Calculated 277 (280-300); Potassium 3.7 mEq/L (3.5-5.1); Sodium 134 mEq/L (136-145); eGFR For African Americans > 60 (> 60); eGFR For Non-African Americans > 60 (> 60)
[2019-02-22] MEDS: Acetaminophen 325 MG TABLET PO PRN (04:52)
[2019-02-22] MEDS: *HR* OxyCODONE ER (12 HR) 10 MG TABLET PO SCH (04:53)
[2019-02-22] MEDS: *HR* Heparin 5,000 UNIT/ML VIAL SQ SCH (05:02)
[2019-02-22 07:12] VITALS: BP 99/68
== END 2019-02-22 11:21 | disposition home or self-care (01) | DRG 466 ==
LOC: EMEROOARM 16:10 → SUATTDRO 17:47 → ICNU 17:47 → 3ANU 02-19 14:15
PROVIDERS: ADMIT Internal Medicine; ATTEND Internal Medicine

== ENCOUNTER 2019-04-10 18:02 | Observation (INO) ==
[2019-04-10] MEDS ORDERED: Piperacillin/Tazobactam 3.375 GM in 0.9 % Sodium Chloride Mini Bag 100 ML IVPB ONE (19:36)
[2019-04-10] MEDS ORDERED: 0.9 % Sodium Chloride 1,000 ML IVC ONE ×2 (19:36→19:37)
[2019-04-10] MEDS ORDERED: Isovue-370 500 ML BOTTLE IVP ONE (19:36)
[2019-04-10 19:55] LABS: Basophils # 0.1 K/mcL (0.0-0.2); Basophils % 0.6 %; Eosinophils # 0.3 K/mcL (0.0-0.6); Eosinophils % 2.5 %; Hematocrit 41.5 % (37.5-50.1); Hemoglobin 14.2 g/dL (12.9-16.9); Immature Granulocytes % 0.4 % (0-4); Lymphocytes # 1.3 K/mcL (0.6-4.6); Lymphocytes % 12.4 %; Mean Corpuscular HGB Conc 34.2 g/dL (31.6-35.5); Mean Corpuscular Hemoglobin 30.6 pg (28.0-33.3); Mean Corpuscular Volume 89.4 fL (83.0-100.0); Mean Platelet Volume 9.5 fL (9.4-12.4); Monocytes # 0.9 K/mcL (0.0-1.3); Neutrophils # 7.6 K/mcL (1.6-8.9); Platelet Count 249 K/mcL (140-400); Red Blood Count 4.64 M/mcL (4.19-5.50); Red Cell Distribution Width 20.2 % (11.5-14.5); Segmented Neutrophils % 75.1 %; White Blood Count 10.1 K/mcL (4.3-11.1)
[2019-04-10 20:15] LABS: BUN/Creatinine Ratio 13 (6-26); Blood Urea Nitrogen 9 mg/dL (6-20); Calcium 9.8 mg/dL (8.6-10.3); Carbon Dioxide 22 mEq/L (23-29); Chloride 107 mEq/L (98-107); Glucose 114 mg/dL (70-105); Osmolality,Calculated 286 (280-300); Potassium 3.8 mEq/L (3.5-5.1); Sodium 138 mEq/L (136-145); eGFR For African Americans > 60 (> 60); eGFR For Non-African Americans > 60 (> 60)
[2019-04-10 20:16] LABS: Albumin 4.3 g/dL (3.5-5.7); Albumin/Globulin Ratio 1.6 (1.1-2.2); Bilirubin,Direct 0.1 mg/dL (0.0-0.2); Bilirubin,Indirect 0.3 mg/dL (0.0-1.0); Bilirubin,Total 0.4 mg/dL (0.3-1.0); Globulin 2.7 g/dL (2.4-3.5)
[2019-04-10 21:28] LABS: Bilirubin,Urine Negative (Negative); Blood,Urine Trace (Negative); Clarity,Urine Clear (Clear); Color,Urine Yellow (Yellow); Glucose,Urine (UA) Normal (Normal); Ketones,Urine Negative (Negative); Leukocyte Esterase,Urine Moderate (Negative); Nitrite,Urine Negative (Negative); Protein,Urine 30 mg/dL (Neg-Trace); Specific Gravity,Urine > 1.030 (1.010-1.025); Urobilinogen,Urine Normal (Normal)
[2019-04-10 21:31] LABS: Bacteria,Urine None Seen per hpf (None-Few); Hyaline Casts,Urine None Seen per lpf (None-Few); Squamous Epithelial Cell,Urine Many per lpf (None-Few); WBC,Urine 30-50 per hpf (0-3)
[2019-04-10] MEDS ORDERED: Vancomycin Oral Soln 125 MG/2.5 ML UDC PO ONE (21:35)
[2019-04-10] MEDS ORDERED: Morphine Sulfate 2 MG/ML SYRINGE IVP ONE (23:19)
[2019-04-11] MEDS ORDERED: Acetaminophen 325 MG TABLET PO PRN (01:01)
[2019-04-11] MEDS ORDERED: Naloxone 0.4 MG/ML INJ IVP PRN (01:01)
[2019-04-11] MEDS ORDERED: Ketorolac 30 MG/ML VIAL IVP PRN (01:01)
[2019-04-11] MEDS: Ringers Solution, Lactated 1,000 ML IVC SCH ×2 (01:45→05:49)
[2019-04-11 03:08] LABS: Adenovirus F 40/41 PCR Not detected (Not detect); Astrovirus PCR Not detected (Not detect); C.difficile Toxin A/B Gene PCR Not detected (Not detect); Campylobacter by PCR Not detected (Not detect); Cryptosporidium by PCR Not detected (Not detect); Cyclospora cayetanensis PCR Not detected (Not detect); Entamoeba histolytica PCR Not detected (Not detect); Enteroaggregative E.coli(EAEC) Not detected (Not detect); Enteropathogenic E.coli(EPEC) Not detected (Not detect); Enterotoxigenic E.coli (ETEC) Not detected (Not detect); Giardia lamblia PCR Not detected (Not detect); Norovirus GI/GII PCR Not detected (Not detect); Plesiomonas shigelloides PCR Not detected (Not detect); Rotavirus A PCR Not detected (Not detect); Salmonella PCR Not detected (Not detect); Sapovirus PCR Not detected (Not detect); Shig/EnteroinvasiveE coli EIEC Not detected (Not detect); Shigalike tox-prod E coli STEC Not detected (Not detect); Vibrio cholerae PCR Not detected (Not detect); Yersinia enterocolitica PCR Not detected (Not detect)
[2019-04-11] MEDS: *HR* Heparin 5,000 UNIT/ML VIAL SQ SCH ×2 (05:45→17:46)
[2019-04-11] MEDS: *HR* OxyCODONE Immed Rel 5 MG TABLET PO PRN ×2 (05:47→10:46)
[2019-04-11] MEDS ORDERED: *HR* OxyCODONE Immed Rel 5 MG TABLET PO PRN ×4 (14:07→18:48)
[2019-04-11 14:32] VITALS: BP 105/68
[2019-04-11] MEDS ORDERED: *HR* OxyCODONE ER (12 HR) 10 MG TABLET PO SCH (18:00)
== END 2019-04-11 20:14 | disposition home or self-care (01) ==
LOC: EMEROOARM 18:02 → 3ANU 18:02 → SUATTDRO 23:04 → 3ANU 23:27
PROVIDERS: ADMIT Internal Medicine; ATTEND Internal Medicine

== ENCOUNTER 2020-11-06 14:20 | Inpatient (IN) ==
[2020-11-06] MEDS ORDERED: Isovue-370 500 ML BOTTLE IVP ONE (14:46)
[2020-11-06] MEDS ORDERED: 0.9 % Sodium Chloride 500 ML IVC ONE (14:46)
[2020-11-06] MEDS ORDERED: Morphine Sulfate 2 MG/ML SYRINGE IVP STA (14:46)
[2020-11-06] MEDS ORDERED: Ondansetron 4 MG/2 ML VIAL IVP STA (14:46)
[2020-11-06] MEDS ORDERED: 0.9 % Sodium Chloride 1,000 ML IVC ONE (14:59)
[2020-11-06 15:27] LABS: Basophils % 0.3 %; Eosinophils % 0.1 %; Hematocrit 36.7 % (37.5-50.1); Hemoglobin 12.2 g/dL (12.9-16.9); Immature Granulocytes % 0.4 % (0-4); Lymphocytes # 1.5 K/mcL (0.6-4.6); Lymphocytes % 18.9 %; Mean Corpuscular HGB Conc 33.2 g/dL (31.6-35.5); Mean Corpuscular Hemoglobin 30.3 pg (28.0-33.3); Mean Corpuscular Volume 91.1 fL (83.0-100.0); Mean Platelet Volume 10.2 fL (9.4-12.4); Monocytes # 0.5 K/mcL (0.0-1.3); Monocytes % 6.3 %; Neutrophils # 5.8 K/mcL (1.6-8.9); Platelet Count 166 K/mcL (140-400); Red Blood Count 4.03 M/mcL (4.19-5.50); Red Cell Distribution Width 14.1 % (11.5-14.5); White Blood Count 7.8 K/mcL (4.3-11.1)
[2020-11-06 15:29] LABS: VBG Ionized Calcium 1.02 mmol/L (1.15-1.35)
[2020-11-06 15:55] LABS: Alanine Aminotransferase 37 Units/L (7-52); Albumin 2.7 g/dL (3.5-5.7); Albumin/Globulin Ratio 1.4 (1.1-2.2); Alkaline Phosphatase 91 Units/L (34-104); Aspartate Amino Transferase 36 Units/L (13-39); BUN/Creatinine Ratio 25 (6-26); Bilirubin,Direct 0.1 mg/dL (0.0-0.2); Bilirubin,Indirect 0.3 mg/dL (0.0-1.0); Bilirubin,Total 0.4 mg/dL (0.3-1.0); Blood Urea Nitrogen 17 mg/dL (6-20); Calcium 7.1 mg/dL (8.6-10.3); Carbon Dioxide 24 mEq/L (23-29); Chloride 107 mEq/L (98-107); Creatine Kinase 35 Units/L (30-223); Globulin 1.9 g/dL (2.4-3.5); Glucose 97 mg/dL (70-105); Lipase 21 Units/L (11-82); Magnesium 0.9 mg/dL (1.6-2.6); Osmolality,Calculated 289 (280-300); Phosphorous 2.9 mg/dL (2.7-4.5); Potassium 3.1 mEq/L (3.5-5.1); Sodium 139 mEq/L (136-145); Total Protein 4.6 g/dL (6.4-8.9); Troponin I < 0.03 ng/mL (< 0.04); eGFR For African Americans > 60 (> 60); eGFR For Non-African Americans > 60 (> 60)
[2020-11-06 16:04] LABS: Thyroid Stimulating Hormone 1.143 mcIU/mL (0.340-5.600)
[2020-11-06] MEDS ORDERED: Albumin 25% 25gram/100mL 25 GM/100 ML IV.SOLN IVPB ONE (16:43)
[2020-11-06] MEDS: Calcium Gluconate 1gm/50mL 1 GM/50 ML BAG IVPB SCH ×3 (17:03→18:53)
[2020-11-06 17:38] LABS: Bacteria,Urine Few per hpf (None-Few); Bilirubin,Urine Negative (Negative); Blood,Urine Trace (Negative); Clarity,Urine Turbid (Clear); Color,Urine Yellow (Yellow); Glucose,Urine (UA) Normal (Normal); Hyaline Casts,Urine Few per lpf (None Seen); Ketones,Urine Negative (Negative); Leukocyte Esterase,Urine Moderate (Negative); Mucus,Urine Few per lpf (None-Few); Nitrite,Urine Negative (Negative); Protein,Urine 50 mg/dL (Neg-Trace); Urobilinogen,Urine Normal (Normal); WBC,Urine 30-50 per hpf (0-3)
[2020-11-06] MEDS ORDERED: cefTRIAXone 1,000 MG in Water for inj. (sterile) 10 ML IVP ONE (17:42)
[2020-11-06] MEDS ORDERED: Naloxone 0.4 MG/ML INJ IVP PRN (18:37)
[2020-11-06] MEDS ORDERED: Ringers Solution, Lactated 1,000 ML IVC ONE (18:37)
[2020-11-06] MEDS: QUEtiapine Fumarate 25 MG TABLET PO SCH (22:10)
[2020-11-06] MEDS: traZODone 50 MG TABLET PO SCH (22:11)
[2020-11-07] MEDS ORDERED: D5% in 0.9% NACL w KCl 20 MEQ/1,000 ML MLS IVC SCH
[2020-11-07 03:35] LABS: Basophils % 0.5 %; Eosinophils % 0.5 %; Hematocrit 30.6 % (37.5-50.1); Immature Granulocytes % 0.5 % (0-4); Lymphocytes # 1.3 K/mcL (0.6-4.6); Lymphocytes % 29.9 %; Mean Corpuscular HGB Conc 33.7 g/dL (31.6-35.5); Mean Corpuscular Hemoglobin 30.4 pg (28.0-33.3); Mean Corpuscular Volume 90.3 fL (83.0-100.0); Monocytes # 0.3 K/mcL (0.0-1.3); Monocytes % 6.1 %; Neutrophils # 2.7 K/mcL (1.6-8.9); Platelet Count 145 K/mcL (140-400); Red Blood Count 3.39 M/mcL (4.19-5.50); Red Cell Distribution Width 14.3 % (11.5-14.5); Segmented Neutrophils % 62.5 %; White Blood Count 4.3 K/mcL (4.3-11.1)
[2020-11-07 03:37] LABS: Hemoglobin 10.3 g/dL (12.9-16.9)
[2020-11-07] MEDS ORDERED: 0.9 % Sodium Chloride 500 ML IVC ONE ×2 (03:46→06:13)
[2020-11-07 03:59] LABS: % Iron Saturation 71 % (20-55); Alanine Aminotransferase 30 Units/L (7-52); Albumin 2.6 g/dL (3.5-5.7); Albumin/Globulin Ratio 1.6 (1.1-2.2); Alkaline Phosphatase 74 Units/L (34-104); Aspartate Amino Transferase 29 Units/L (13-39); BUN/Creatinine Ratio 22 (6-26); Bilirubin,Direct 0.1 mg/dL (0.0-0.2); Bilirubin,Indirect 0.3 mg/dL (0.0-1.0); Bilirubin,Total 0.4 mg/dL (0.3-1.0); Blood Urea Nitrogen 12 mg/dL (6-20); Calcium 7.3 mg/dL (8.6-10.3); Carbon Dioxide 26 mEq/L (23-29); Chloride 107 mEq/L (98-107); Globulin 1.6 g/dL (2.4-3.5); Glucose 100 mg/dL (70-105); Iron 82 mcg/dL (65-175); Magnesium 1.8 mg/dL (1.6-2.6); Osmolality,Calculated 284 (280-300); Phosphorous 2.4 mg/dL (2.7-4.5); Potassium 3.3 mEq/L (3.5-5.1); Sodium 137 mEq/L (136-145); Total Protein 4.2 g/dL (6.4-8.9); Transferrin 83 mg/dL (203-362); eGFR For African Americans > 60 (> 60); eGFR For Non-African Americans > 60 (> 60)
[2020-11-07 04:17] LABS: Ferritin 198 ng/mL (20-250)
[2020-11-07 04:22] LABS: Folate 18.4 ng/mL (3.0-16.0)
[2020-11-07] MEDS ORDERED: Hydrocortisone Sodium Succ 100 MG/2 ML VIAL IVP SCH (08:00)
[2020-11-07] MEDS: Ondansetron 4 MG/2 ML VIAL IVP PRN (08:15)
[2020-11-07] MEDS ORDERED: cefTRIAXone 1,000 MG in 0.9 % Sodium Chloride Mini Bag 100 ML IVPB SCH (09:00)
[2020-11-07] MEDS: Cholecalciferol (D-3) 1,000 UNIT (25MCG) TABLET PO SCH (12:49)
[2020-11-07] MEDS: Nicotine 14 MG PATCH.TD24 TD SCH (12:51)
[2020-11-07] MEDS: D5% in 0.9% NACL w KCl 20 MEQ/1,000 ML MLS IVC SCH ×2 (12:51→17:41)
[2020-11-07] MEDS: cefTRIAXone 1,000 MG in 0.9 % Sodium Chloride Mini Bag 100 ML IVPB SCH (12:55)
[2020-11-07] MEDS ORDERED: D10% in Water 500 ML IVC PRN (14:53)
[2020-11-07] MEDS ORDERED: Lidocaine -MPF 1% 5 ML AMPUL INFILT ONE (16:33)
[2020-11-07] MEDS ORDERED: Clinimix E 5%-15% SOLUTION 2,000 ML with MVI, adult with vitamin K 10 ML IVC SCH (17:00)
[2020-11-07] MEDS ORDERED: D5% in Water 1,000 ML IVC PRN (17:37)
[2020-11-07] MEDS ORDERED: Dextrose Gel 15 GM/37.5 ML TUBE PO PRN ×2 (17:37)
[2020-11-07] MEDS ORDERED: *HR* Dextrose 50 % in Water (Vial) 50 ML VIAL IVP PRN (17:37)
[2020-11-07] MEDS ORDERED: Potassium Phosphate 44 MEQ in 0.9 % Sodium Chloride 250 ML IVPB ONE (17:37)
[2020-11-07] MEDS ORDERED: Insulin LISPRO 300 UNITS/3 ML VIAL SUBQ SCH (20:00)
[2020-11-07] MEDS ORDERED: Morphine Sulfate 2 MG/ML SYRINGE IVP PRN (23:22)
[2020-11-08] MEDS: QUEtiapine Fumarate 25 MG TABLET PO SCH ×2 (00:06→23:46)
[2020-11-08] MEDS: Acetaminophen 325 MG TABLET PO PRN (00:06)
[2020-11-08] MEDS: traZODone 50 MG TABLET PO SCH ×2 (00:06→23:45)
[2020-11-08] MEDS: Insulin LISPRO 300 UNITS/3 ML VIAL SUBQ SCH ×6 (00:54→23:39)
[2020-11-08 00:56] LABS: Basophils % 0.2 %; Hematocrit 28.3 % (37.5-50.1); Hemoglobin 9.4 g/dL (12.9-16.9); Immature Granulocytes % 0.4 % (0-4); Immature Platelets 5.6 % (1.1-6.1); Lymphocytes # 0.5 K/mcL (0.6-4.6); Mean Corpuscular HGB Conc 33.2 g/dL (31.6-35.5); Mean Corpuscular Hemoglobin 30.3 pg (28.0-33.3); Mean Corpuscular Volume 91.3 fL (83.0-100.0); Mean Platelet Volume 10.7 fL (9.4-12.4); Monocytes # 0.2 K/mcL (0.0-1.3); Monocytes % 5.1 %; Neutrophils # 3.7 K/mcL (1.6-8.9); Platelet Count 136 K/mcL (140-400); Red Cell Distribution Width 14.4 % (11.5-14.5); Segmented Neutrophils % 82.3 %; White Blood Count 4.5 K/mcL (4.3-11.1)
[2020-11-08 01:16] LABS: BUN/Creatinine Ratio 20 (6-26); Blood Urea Nitrogen 8 mg/dL (6-20); Calcium 6.7 mg/dL (8.6-10.3); Carbon Dioxide 25 mEq/L (23-29); Chloride 111 mEq/L (98-107); Glucose 281 mg/dL (70-105); Magnesium 1.6 mg/dL (1.6-2.6); Osmolality,Calculated 296 (280-300); Potassium 4.7 mEq/L (3.5-5.1); Sodium 139 mEq/L (136-145); eGFR For African Americans > 60 (> 60); eGFR For Non-African Americans > 60 (> 60)
[2020-11-08] MEDS: Nicotine 14 MG PATCH.TD24 TD SCH (08:48)
[2020-11-08] MEDS: Calcium Gluconate 1gm/50mL 1 GM/50 ML BAG IVPB SCH ×2 (08:48→09:45)
[2020-11-08] MEDS: Cholecalciferol (D-3) 1,000 UNIT (25MCG) TABLET PO SCH (08:49)
[2020-11-08] MEDS: cefTRIAXone 1,000 MG in 0.9 % Sodium Chloride Mini Bag 100 ML IVPB SCH (12:17)
[2020-11-08] MEDS ORDERED: Clinimix E 5%-15% SOLUTION 2,000 ML with MVI, adult with vitamin K 10 ML IVC SCH (17:00)
[2020-11-09] MEDS: Insulin LISPRO 300 UNITS/3 ML VIAL SUBQ SCH ×6 (06:02→21:17)
[2020-11-09 07:21] LABS: Basophils % 0.4 %; Eosinophils % 0.4 %; Hematocrit 32.2 % (37.5-50.1); Hemoglobin 10.4 g/dL (12.9-16.9); Immature Granulocytes % 0.2 % (0-4); Lymphocytes # 1.1 K/mcL (0.6-4.6); Lymphocytes % 23.7 %; Mean Corpuscular HGB Conc 32.3 g/dL (31.6-35.5); Mean Corpuscular Hemoglobin 29.7 pg (28.0-33.3); Mean Platelet Volume 11.1 fL (9.4-12.4); Monocytes # 0.2 K/mcL (0.0-1.3); Monocytes % 4.2 %; Neutrophils # 3.4 K/mcL (1.6-8.9); Platelet Count 109 K/mcL (140-400); Red Cell Distribution Width 14.6 % (11.5-14.5); Segmented Neutrophils % 71.1 %; White Blood Count 4.8 K/mcL (4.3-11.1)
[2020-11-09 08:10] LABS: BUN/Creatinine Ratio 22 (6-26); Blood Urea Nitrogen 9 mg/dL (6-20); Calcium 7.6 mg/dL (8.6-10.3); Carbon Dioxide 30 mEq/L (23-29); Chloride 107 mEq/L (98-107); Glucose 110 mg/dL (70-105); Magnesium 1.7 mg/dL (1.6-2.6); Osmolality,Calculated 285 (280-300); Phosphorous 1.8 mg/dL (2.7-4.5); Potassium 4.1 mEq/L (3.5-5.1); Sodium 138 mEq/L (136-145); eGFR For African Americans > 60 (> 60); eGFR For Non-African Americans > 60 (> 60)
[2020-11-09] MEDS: Nicotine 14 MG PATCH.TD24 TD SCH (08:25)
[2020-11-09] MEDS: Cholecalciferol (D-3) 1,000 UNIT (25MCG) TABLET PO SCH (08:27)
[2020-11-09] MEDS ORDERED: Clinimix E 5%-15% SOLUTION 2,000 ML with MVI, adult with vitamin K 10 ML IVC SCH (17:00)
[2020-11-09] MEDS: traZODone 50 MG TABLET PO SCH (21:26)
[2020-11-09] MEDS: QUEtiapine Fumarate 25 MG TABLET PO SCH (21:27)
[2020-11-10 06:10] LABS: Basophils % 0.2 %; Eosinophils % 0.6 %; Hemoglobin 9.9 g/dL (12.9-16.9); Immature Granulocytes % 0.4 % (0-4); Immature Platelets 7.3 % (1.1-6.1); Lymphocytes # 1.1 K/mcL (0.6-4.6); Lymphocytes % 20.9 %; Mean Corpuscular Hemoglobin 30.5 pg (28.0-33.3); Mean Corpuscular Volume 92.3 fL (83.0-100.0); Mean Platelet Volume 10.9 fL (9.4-12.4); Monocytes # 0.3 K/mcL (0.0-1.3); Monocytes % 6.1 %; Neutrophils # 3.6 K/mcL (1.6-8.9); Platelet Count 111 K/mcL (140-400); Red Blood Count 3.25 M/mcL (4.19-5.50); Red Cell Distribution Width 14.5 % (11.5-14.5); Segmented Neutrophils % 71.8 %; White Blood Count 5.1 K/mcL (4.3-11.1)
[2020-11-10 06:30] LABS: BUN/Creatinine Ratio 34 (6-26); Blood Urea Nitrogen 11 mg/dL (6-20); Calcium 7.8 mg/dL (8.6-10.3); Carbon Dioxide 27 mEq/L (23-29); Glucose 83 mg/dL (70-105); Magnesium 1.8 mg/dL (1.6-2.6); Phosphorous 2.7 mg/dL (2.7-4.5); eGFR For African Americans > 60 (> 60); eGFR For Non-African Americans > 60 (> 60)
[2020-11-10 06:49] LABS: Chloride 109 mEq/L (98-107); Osmolality,Calculated 283 (280-300); Sodium 137 mEq/L (136-145)
[2020-11-10] MEDS: Insulin LISPRO 300 UNITS/3 ML VIAL SUBQ SCH ×5 (07:35→20:51)
[2020-11-10] MEDS: Cholecalciferol (D-3) 1,000 UNIT (25MCG) TABLET PO SCH (08:06)
[2020-11-10] MEDS: Acetaminophen 325 MG TABLET PO PRN (08:14)
[2020-11-10] MEDS ORDERED: Sennosides/Docusate Sodium TABLET PO ONE (10:07)
[2020-11-10] MEDS: Nicotine 14 MG PATCH.TD24 TD SCH (10:09)
[2020-11-10] MEDS ORDERED: Ketorolac 15 MG/ML VIAL IVP ONE (14:41)
[2020-11-10] MEDS ORDERED: Clinimix E 5%-15% SOLUTION 2,000 ML with MVI, adult with vitamin K 10 ML IVC SCH (17:00)
[2020-11-10] MEDS: *HR* Heparin 5,000 UNIT/ML VIAL SQ SCH (17:36)
[2020-11-10] MEDS: QUEtiapine Fumarate 25 MG TABLET PO SCH (20:52)
[2020-11-10] MEDS: traZODone 50 MG TABLET PO SCH (20:52)
[2020-11-11] MEDS: Insulin LISPRO 300 UNITS/3 ML VIAL SUBQ SCH ×6 (00:12→19:49)
[2020-11-11 01:14] LABS: Mean Corpuscular HGB Conc 32.1 g/dL (31.6-35.5)
[2020-11-11 01:16] LABS: Basophils % 0.5 %; Eosinophils % 0.5 %; Hematocrit 29.3 % (37.5-50.1); Hemoglobin 9.4 g/dL (12.9-16.9); Immature Granulocytes % 0.2 % (0-4); Immature Platelets 8.3 % (1.1-6.1); Lymphocytes % 24.6 %; Mean Corpuscular Volume 93.6 fL (83.0-100.0); Mean Platelet Volume 11.5 fL (9.4-12.4); Monocytes # 0.4 K/mcL (0.0-1.3); Monocytes % 8.9 %; Neutrophils # 2.7 K/mcL (1.6-8.9); Platelet Count 106 K/mcL (140-400); Red Blood Count 3.13 M/mcL (4.19-5.50); Red Cell Distribution Width 14.5 % (11.5-14.5); Segmented Neutrophils % 65.3 %; White Blood Count 4.2 K/mcL (4.3-11.1)
[2020-11-11 01:32] LABS: BUN/Creatinine Ratio 46 (6-26); Blood Urea Nitrogen 16 mg/dL (6-20); Calcium 8.1 mg/dL (8.6-10.3); Carbon Dioxide 31 mEq/L (23-29); Chloride 104 mEq/L (98-107); Glucose 93 mg/dL (70-105); Magnesium 1.9 mg/dL (1.6-2.6); Osmolality,Calculated 289 (280-300); Phosphorous 2.5 mg/dL (2.7-4.5); Potassium 3.9 mEq/L (3.5-5.1); Sodium 139 mEq/L (136-145); eGFR For African Americans > 60 (> 60); eGFR For Non-African Americans > 60 (> 60)
[2020-11-11] MEDS: Acetaminophen 325 MG TABLET PO PRN (04:19)
[2020-11-11] MEDS: *HR* Heparin 5,000 UNIT/ML VIAL SQ SCH ×2 (05:30→18:29)
[2020-11-11] MEDS: Cholecalciferol (D-3) 1,000 UNIT (25MCG) TABLET PO SCH (08:38)
[2020-11-11] MEDS: Nicotine 14 MG PATCH.TD24 TD SCH (09:26)
[2020-11-11] MEDS ORDERED: polyethylene glycoL 3350 17 GM POWD.PACK PO ONE (10:08)
[2020-11-11] MEDS ORDERED: Clinimix E 5%-15% SOLUTION 2,000 ML with MVI, adult with vitamin K 10 ML IVC SCH (17:00)
[2020-11-11] MEDS: traZODone 50 MG TABLET PO SCH (19:49)
[2020-11-11] MEDS: QUEtiapine Fumarate 25 MG TABLET PO SCH (19:49)
[2020-11-12] MEDS: Insulin LISPRO 300 UNITS/3 ML VIAL SUBQ SCH ×7 (00:41→23:27)
[2020-11-12] MEDS: *HR* Heparin 5,000 UNIT/ML VIAL SQ SCH ×2 (05:08→17:35)
[2020-11-12] MEDS: Acetaminophen 325 MG TABLET PO PRN (05:08)
[2020-11-12 05:17] LABS: Immature Granulocytes % 0.2 % (0-4); Red Cell Distribution Width 14.7 % (11.5-14.5)
[2020-11-12 05:19] LABS: Basophils % 0.9 %; Eosinophils # 0.1 K/mcL (0.0-0.6); Eosinophils % 1.1 %; Hematocrit 27.7 % (37.5-50.1); Hemoglobin 8.9 g/dL (12.9-16.9); Immature Platelets 10.4 % (1.1-6.1); Lymphocytes # 1.1 K/mcL (0.6-4.6); Lymphocytes % 24.9 %; Mean Corpuscular HGB Conc 32.1 g/dL (31.6-35.5); Mean Corpuscular Volume 93.3 fL (83.0-100.0); Mean Platelet Volume 11.4 fL (9.4-12.4); Monocytes # 0.5 K/mcL (0.0-1.3); Neutrophils # 2.7 K/mcL (1.6-8.9); Platelet Count 133 K/mcL (140-400); Red Blood Count 2.97 M/mcL (4.19-5.50); Segmented Neutrophils % 61.9 %; White Blood Count 4.4 K/mcL (4.3-11.1)
[2020-11-12 05:45] LABS: BUN/Creatinine Ratio 39 (6-26); Blood Urea Nitrogen 15 mg/dL (6-20); Calcium 8.2 mg/dL (8.6-10.3); Carbon Dioxide 31 mEq/L (23-29); Chloride 102 mEq/L (98-107); Glucose 98 mg/dL (70-105); Magnesium 1.9 mg/dL (1.6-2.6); Osmolality,Calculated 289 (280-300); Phosphorous 3.1 mg/dL (2.7-4.5); Potassium 3.9 mEq/L (3.5-5.1); Sodium 139 mEq/L (136-145); eGFR For African Americans > 60 (> 60); eGFR For Non-African Americans > 60 (> 60)
[2020-11-12] MEDS: Cholecalciferol (D-3) 1,000 UNIT (25MCG) TABLET PO SCH (08:44)
[2020-11-12] MEDS: Nicotine 14 MG PATCH.TD24 TD SCH (08:46)
[2020-11-12] MEDS ORDERED: Clinimix E 5%-15% SOLUTION 2,000 ML with MVI, adult with vitamin K 10 ML IVC SCH (17:00)
[2020-11-12] MEDS: QUEtiapine Fumarate 25 MG TABLET PO SCH (22:01)
[2020-11-12] MEDS: traZODone 50 MG TABLET PO SCH (22:01)
[2020-11-13] MEDS: Insulin LISPRO 300 UNITS/3 ML VIAL SUBQ SCH ×5 (04:21→21:36)
[2020-11-13] MEDS: *HR* Heparin 5,000 UNIT/ML VIAL SQ SCH ×2 (05:45→17:08)
[2020-11-13 06:23] LABS: BUN/Creatinine Ratio 34 (6-26); Blood Urea Nitrogen 16 mg/dL (6-20); Calcium 8.8 mg/dL (8.6-10.3); Carbon Dioxide 34 mEq/L (23-29); Chloride 99 mEq/L (98-107); Glucose 116 mg/dL (70-105); Magnesium 1.9 mg/dL (1.6-2.6); Osmolality,Calculated 282 (280-300); Phosphorous 2.8 mg/dL (2.7-4.5); Potassium 4.1 mEq/L (3.5-5.1); Sodium 135 mEq/L (136-145); eGFR For African Americans > 60 (> 60); eGFR For Non-African Americans > 60 (> 60)
[2020-11-13] MEDS: Cholecalciferol (D-3) 1,000 UNIT (25MCG) TABLET PO SCH (08:24)
[2020-11-13] MEDS: Ondansetron 4 MG/2 ML VIAL IVP PRN (09:41)
[2020-11-13] MEDS: Metoclopramide 10 MG/2 ML VIAL IVP SCH ×2 (10:21→17:06)
[2020-11-13] MEDS: Nicotine 14 MG PATCH.TD24 TD SCH (11:34)
[2020-11-13] MEDS: Albumin 25% 25gram/100mL 25 GM/100 ML IV.SOLN IVPB SCH ×3 (13:05→21:59)
[2020-11-13 15:39] LABS: Triiodothyronine (T3) Free 3.05 pg/mL (2.50-3.90)
[2020-11-13] MEDS ORDERED: Clinimix E 5%-15% SOLUTION 2,000 ML with MVI, adult with vitamin K 10 ML IVC SCH (17:00)
[2020-11-13] MEDS: traZODone 50 MG TABLET PO SCH (21:59)
[2020-11-13] MEDS: QUEtiapine Fumarate 25 MG TABLET PO SCH (21:59)
[2020-11-14] MEDS: Metoclopramide 10 MG/2 ML VIAL IVP SCH ×4 (00:05→22:47)
[2020-11-14] MEDS: Albumin 25% 25gram/100mL 25 GM/100 ML IV.SOLN IVPB SCH ×5 (00:06→22:47)
[2020-11-14] MEDS: Insulin LISPRO 300 UNITS/3 ML VIAL SUBQ SCH ×7 (05:05→23:57)
[2020-11-14] MEDS: *HR* Heparin 5,000 UNIT/ML VIAL SQ SCH (05:25)
[2020-11-14] MEDS: Cholecalciferol (D-3) 1,000 UNIT (25MCG) TABLET PO SCH (08:09)
[2020-11-14] MEDS: Nicotine 14 MG PATCH.TD24 TD SCH (08:11)
[2020-11-14] MEDS ORDERED: Ketorolac 15 MG/ML VIAL IVP ONE (08:18)
[2020-11-14] MEDS ORDERED: Metoclopramide 10 MG/2 ML VIAL IVP ONE (08:42)
[2020-11-14] MEDS ORDERED: Isovue-370 500 ML BOTTLE IVP ONE (08:44)
[2020-11-14] MEDS: Ondansetron 4 MG/2 ML VIAL IVP PRN (09:05)
[2020-11-14] MEDS ORDERED: Isovue-370 500 ML BOTTLE PO ONE (09:06)
[2020-11-14 09:29] LABS: BUN/Creatinine Ratio 32 (6-26); Blood Urea Nitrogen 19 mg/dL (6-20); Calcium 10.2 mg/dL (8.6-10.3); Carbon Dioxide 34 mEq/L (23-29); Chloride 98 mEq/L (98-107); Glucose 104 mg/dL (70-105); Osmolality,Calculated 285 (280-300); Phosphorous 3.3 mg/dL (2.7-4.5); Potassium 4.5 mEq/L (3.5-5.1); Sodium 136 mEq/L (136-145); Triglycerides 52 mg/dL (< 150); eGFR For African Americans > 60 (> 60); eGFR For Non-African Americans > 60 (> 60)
[2020-11-14] MEDS ORDERED: *HR* Heparin 5,000 UNIT/ML VIAL IVP PRN ×2 (13:14)
[2020-11-14] MEDS ORDERED: Heparin 25,000UNIT/250ML 1/2NS 25,000 UNIT/250 ML IV.SOLN IVC SCH (13:15)
[2020-11-14] MEDS ORDERED: Clinimix E 5%-15% SOLUTION 2,000 ML with MVI, adult with vitamin K 10 ML IVC SCH (17:00)
[2020-11-14] MEDS: traZODone 50 MG TABLET PO SCH (20:28)
[2020-11-14] MEDS: QUEtiapine Fumarate 25 MG TABLET PO SCH (20:28)
[2020-11-14] MEDS: polyethylene glycoL 3350 17 GM POWD.PACK PO SCH (20:29)
[2020-11-14] MEDS ORDERED: Melatonin 3 MG TABLET PO PRN (23:57)
[2020-11-15] MEDS ORDERED: 0.9 % Sodium Chloride 1,000 ML IVC ONE ×3 (02:05→08:37)
[2020-11-15] MEDS ORDERED: 0.9 % Sodium Chloride 1,000 ML IV ONE (03:52)
[2020-11-15] MEDS ORDERED: Ketorolac 30 MG/ML VIAL IVP PRN (03:57)
[2020-11-15] MEDS: Metoclopramide 10 MG/2 ML VIAL IVP SCH (05:08)
[2020-11-15] MEDS: Acetaminophen 325 MG TABLET PO PRN (05:08)
[2020-11-15] MEDS: Insulin LISPRO 300 UNITS/3 ML VIAL SUBQ SCH ×2 (05:20→08:41)
[2020-11-15 06:43] LABS: Alanine Aminotransferase 40 Units/L (7-52); Albumin 3.3 g/dL (3.5-5.7); Alkaline Phosphatase 38 Units/L (34-104); Aspartate Amino Transferase 36 Units/L (13-39); Bilirubin,Direct 0.2 mg/dL (0.0-0.2); Bilirubin,Indirect 0.3 mg/dL (0.0-1.0); Bilirubin,Total 0.5 mg/dL (0.3-1.0); Globulin 1.1 g/dL (2.4-3.5); Total Protein 4.4 g/dL (6.4-8.9)
[2020-11-15 07:00] LABS: BUN/Creatinine Ratio 30 (6-26); Blood Urea Nitrogen 26 mg/dL (6-20); Carbon Dioxide 18 mEq/L (23-29); Chloride 102 mEq/L (98-107); Glucose 141 mg/dL (70-105); Osmolality,Calculated 285 (280-300); Potassium 4.3 mEq/L (3.5-5.1); Sodium 134 mEq/L (136-145); eGFR For African Americans > 60 (> 60); eGFR For Non-African Americans > 60 (> 60)
[2020-11-15 07:01] LABS: Calcium 8.5 mg/dL (8.6-10.3); Magnesium 1.8 mg/dL (1.6-2.6); Phosphorous 3.5 mg/dL (2.7-4.5)
[2020-11-15] MEDS ORDERED: Albumin 25% 25gram/100mL 25 GM/100 ML IV.SOLN IVPB SCH ×2 (08:00→20:00)
[2020-11-15 08:27] VITALS: BP 72/42
[2020-11-15] MEDS ORDERED: Albumin Human 5% 12.5 GM/250 ML IV.SOLN IVC SCH (09:15)
[2020-11-15] MEDS ORDERED: Norepinephrine 4 MG/254 ML IV.SOLN IVC SCH (09:15)
[2020-11-15 09:17] LABS: Adenovirus Not Detected (Not Detect); Bordetella Pertussis Not Detected (Not Detect); Chlamydophila pneumoniae Not Detected (Not Detect); Coronavirus 229E Not Detected (Not Detect); Coronavirus HKU1 Not Detected (Not Detect); Coronavirus NL63 Not Detected (Not Detect); Coronavirus OC43 Not Detected (Not Detect); Human Metapneumovirus Not Detected (Not Detect); Human Rhinovirus/Enterovirus Not Detected (Not Detect); Influenza A Subtype 2009 H1 Not Detected (Not Detect); Influenza B Not Detected (Not Detect); Mycoplasma pneumoniae Not Detected (Not Detect); Parainfluenza Virus 1 Not Detected (Not Detect); Parainfluenza Virus 2 Not Detected (Not Detect); Parainfluenza Virus 3 Not Detected (Not Detect); Parainfluenza Virus 4 Not Detected (Not Detect); Respiratory Syncytial Virus Not Detected (Not Detect); SARS-CoV-2 Not Detected (Not Detect)
[2020-11-15 09:40] LABS: ABG Base Excess -10 mEq/L (-2 to 3); ABG HCO3 16 mEq/L (21-27); ABG Oxygen Saturation 92 % (95-98); ABG PCO2 34 mmHg (35-45); ABG PH 7.28 pH Units (7.32-7.45); ABG PO2 70 mmHg (85-104); ABG TCO2 17 mEq/L (20-26)
[2020-11-15] MEDS ORDERED: Sodium Bicarbonate 50 MEQ/50 ML VIAL IVP ONE (09:40)
[2020-11-15] MEDS ORDERED: Sodium Bicarbonate 150 MEQ in D5% in Water 1,000 ML IVC SCH (09:45)
[2020-11-15] MEDS ORDERED: Piperacillin/Tazobactam 3.375 GM in 0.9 % Sodium Chloride Mini Bag 100 ML IVPB ONE (09:47)
[2020-11-15 10:39] LABS: Lymphocytes # 0.5 K/mcL (0.6-4.6); Mean Corpuscular Hemoglobin 30.5 pg (28.0-33.3); Mean Corpuscular Volume 101.7 fL (83.0-100.0); Mean Platelet Volume 10.9 fL (9.4-12.4); Red Blood Count 0.59 M/mcL (4.19-5.50); Red Cell Distribution Width 15.9 % (11.5-14.5); White Blood Count 6.5 K/mcL (4.3-11.1)
[2020-11-15 10:40] LABS: Platelet Count 77 K/mcL (140-400)
[2020-11-15] MEDS: polyethylene glycoL 3350 17 GM POWD.PACK PO SCH (10:40)
[2020-11-15] MEDS: Nicotine 14 MG PATCH.TD24 TD SCH (10:41)
[2020-11-15 10:42] LABS: VBG Ionized Calcium 1.15 mmol/L (1.15-1.35)
[2020-11-15 10:42] LABS: Hemoglobin 1.8 g/dL (12.9-16.9)
[2020-11-15] MEDS ORDERED: 0.9 % Sodium Chloride 250 ML ONE ×2 (10:42→10:54)
[2020-11-15] MEDS ORDERED: *HR* Etomidate 20 MG/10 ML AMPUL IVP ONE (10:58)
[2020-11-15 11:02] LABS: Monocytes # 0.4 K/mcL (0.0-1.3); Neutrophils # 5.5 K/mcL (1.6-8.9); Platelet Estimate Decreased (Normal)
[2020-11-15 11:07] LABS: Alanine Aminotransferase 58 Units/L (7-52); Albumin 3.7 g/dL (3.5-5.7); Albumin/Globulin Ratio 4.1 (1.1-2.2); Alkaline Phosphatase 32 Units/L (34-104); Aspartate Amino Transferase 65 Units/L (13-39); BUN/Creatinine Ratio 24 (6-26); Bilirubin,Total 0.6 mg/dL (0.3-1.0); Blood Urea Nitrogen 26 mg/dL (6-20); Calcium 8.6 mg/dL (8.6-10.3); Carbon Dioxide 17 mEq/L (23-29); Chloride 98 mEq/L (98-107); Globulin 0.9 g/dL (2.4-3.5); Glucose 106 mg/dL (70-105); Magnesium 1.9 mg/dL (1.6-2.6); Osmolality,Calculated 293 (280-300); Potassium 4.1 mEq/L (3.5-5.1); Sodium 139 mEq/L (136-145); Total Protein 4.6 g/dL (6.4-8.9); eGFR For African Americans > 60 (> 60); eGFR For Non-African Americans > 60 (> 60)
[2020-11-15] MEDS: Cholecalciferol (D-3) 1,000 UNIT (25MCG) TABLET PO SCH (11:07)
[2020-11-15 11:49] LABS: Tissue Transglutaminase IgA <2 U/mL (0-3)
[2020-11-15] MEDS ORDERED: Clinimix E 5%-15% SOLUTION 2,000 ML with MVI, adult with vitamin K 10 ML IVC SCH (17:00)
[2020-11-16] MEDS ORDERED: Clinimix E 5%-15% SOLUTION 2,000 ML with MVI, adult with vitamin K 10 ML IVC SCH (17:00)
== END 2020-11-15 10:59 | disposition short-term general hospital (02) | DRG 388 ==
LOC: 2NENU 14:20 → EMEROOARM 14:20 → SUATTDRO 18:09 → 2NENU 21:24 → SUATTDRO 11-07 20:24 → ICNU 11-15 09:51
PROVIDERS: ADMIT Pharmacist; ATTEND Internal Medicine